=== PATIENT | male | born 1940 | race Caucasian/White ===

== ENCOUNTER 2022-03-08 09:59 | Outpatient (CLI) | payer MEDICARE, BC, SELFPAY ==
[2022-03-08 13:30] LABS: Vitamin B12* 245 pg/mL (243-894)
== END 2022-03-08 10:00 | disposition home or self-care (01) ==
PROVIDERS: PCP Family Medicine; Visit Provider Emergency Medicine
DX: D53.9 Nutritional anemia, unspecified (principal)
CPT/HCPCS: 82607

== ENCOUNTER 2022-04-03 14:05 | Outpatient (CLI) | payer MEDICARE, BC, SELFPAY ==
[2022-04-03 16:50] LABS: Albumin* 3.9 g/dL (3.3-5.0); Chloride* 107 mmol/L (96-114); Potassium* 4.1 mmol/L (3.6-5.1); Sodium* 138 mmol/L (135-149)
[2022-04-03 16:53] LABS: Alanine Aminotransferase* 32 U/L (4-50); Alkaline Phosphatase* 196 U/L (40-150); Aspartate Amino Transferase* 28 U/L (12-35); Blood Urea Nitrogen* 18 mg/dL (7-30); Carbon Dioxide* 25 mmol/L (20-32); Creatinine* 0.7 mg/dL (0.5-1.5); Estimated Glomerular Filt Rate 92 ml/min; Glucose* 98 mg/dL (60-115); Total Protein* 6.8 g/dL (6.0-8.3)
[2022-04-03 16:54] LABS: Calcium* 8.8 mg/dL (8.4-10.6)
[2022-04-03 17:23] LABS: PSA Screen* 1.36 ng/mL (0.10-4.00)
== END 2022-04-03 14:06 | disposition home or self-care (01) ==
LOC: LKVREF 14:05
PROVIDERS: PCP Family Medicine; Visit Provider Family Medicine
DX: N40.0 Benign prostatic hyperplasia without lower urinary tract symptoms (principal); E03.9 Hypothyroidism, unspecified; I25.10 Atherosclerotic heart disease of native coronary artery without angina pectoris; R74.8 Abnormal levels of other serum enzymes; M25.522 Pain in left elbow
CPT/HCPCS: 80053; 84153; 84443

== ENCOUNTER 2022-04-27 11:00 | Outpatient (CLI) | payer MEDICARE, BC, SELFPAY | END 2022-04-27 11:01 | disposition home or self-care (01) | PROVIDERS: PCP Family Medicine; Visit Provider Family Medicine | DX: Z00.00 Encounter for general adult medical examination without abnormal findings (principal); D64.9 Anemia, unspecified; I10 Essential (primary) hypertension; E03.9 Hypothyroidism, unspecified | CPT/HCPCS: 82728; 82747; 83540 ==

== ENCOUNTER 2022-05-01 14:00 | Outpatient (RCR) | payer MEDICARE, BC, SELFPAY ==
--- NOTE | 2022-04-11 13:46 | OT.OPOE ---
OT Outpatient Ortho Eval OT Outpatient Ortho Eval Start: 04/11/22 11:21 Freq: Status: Active Protocol: Document 04/11/22 11:21 LCN (Rec: 04/11/22 11:46 LCN [id number]) E-signed By Shital Price, OTR/L, CLT OT OP Ortho Eval Details Type Type Eval Complexity Low Insurance Information Insurance Information Medicare B Outpatient History/Precautions Current Condition/Medical Diagnosis Referring Provider Carmita Chaney PA-C Treatment Diagnosis L elbow pain Date of Onset 03/08/22 Medical Conditions Heart Condition,Metal Implants Other Conditions 3 vessel bypass with stent placement, B total knee replacements, BPH. Has been seen in ER for vertigo with near syncope, responded to meclizine after a few hours, no eval for BPPV, but continues to have dizziness with rising from side lying or sit to stand, taking 3-5 sec pause before moving. Has had 3 annual rounds of cortisone injections into L [facility] and can no longer get more . Medical/Functional History Medical History Reviewed Yes Prior Level of Function/Mobility Pt used to winter in [facility] x 2 months for the past 10 years , stopped in 2019 and pt has been moving slower since, now single point cane user. This is his first fall with injury in the past 8 years. 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 TUG was 12 sec on . Ortho Subjective Subjective Subjective Juancarlos Dexter is a left hand dominant 82 y/o retired male who is starting to slow down with his activity and has some ongoing dizziness symptoms. WHen he stood rapidly on 03/08/22, he fell forward into heavy side table with R hand pinned under and sustained full sheering of left forearm with bruising and edema through entire L UE that responded well to round of prednisone. L thumb is stiff, mildly tender during pinching Pain Assessment Pain Present Pain Present Pain Reported Location L elbow Description Pressure,Dull, Achy,Throbbing, With Movement Intensity 2 Goniometric Comments Goniometric Comments Goniometric Comments AROM-- lacking 12 degree term EL FL and -5 degrees ILEANA with springy end feel. Denies shoulder pain. MMT withheld per pain. Pos 1 Magnetic Healer is 65# R and 46# L ( tender at L CMC 2 /10). Pos 2 is 60# R and 55#. Melgoza pinch is 20#R and 19# L. 3 pt pinch is 20# R and 17# L. Squaring of B CMC's noted. Fibrous changes, spongy texture at medial epicondyle and tender points in flexor muscle bulk. Bruising edema of dorsal hand are resolved. Upper Extremity Special Tests Elbow Cozens Test Negative Left,Negative Right Ulnar Nerve Froment's Sign Negative Left,Negative Right OT Problems Problems Problems Decreased Strength,Decreased Range of Motion Problems Comments Pain Other Problems Opening Containers,Dressing Patient Potential Excellent Assessment Assessment Assessment Given Inocencio's post fall L elbow pain difficulty with edema, pain, ROM and strength loss of L thumb/elbow, he would benefit from skilled OT to address these areas. Occupational Therapy Treatment Plan - OP Goals Goals In 6 weeks, pt will demonstrate:? 1) Decreased pn to <2/10 80% of the time with flipping collar, managing paintbrushes, and carrying objects between rooms. 2) I HEP for stretching, gradual strengthening and self mgmt strategies. 3) improved L atm mechanic strength to 15# and pinch to 10# with L thumb pain < 1/10. Target Date 05/23/22 Progress set Treatment Plan Treatment Plan Evaluation,Edema Control,Joint Mobilization,Manual Therapy, Ultrasound,Therapeutic Exercise,Self-Care/Home Management,Caregiver Training Expected Frequency 1-2x Week Expected Duration Comments 4-6 visits Certification Certification I Certify That: Therapy Services Provided, Therapy Plan Established, Therapy Plan Reviewed Recertification Information Recertification Information Initial Certification Date 04/11/22 Recertification Due Date 05/23/22 Provider Signature Shows Agreement With POC & Medical Necessity Physician Comment/Change Comment or Changes Physician NPI Number #
== END 2022-08-24 08:12 | disposition home or self-care (01) ==
PROVIDERS: PCP Family Medicine; Visit Provider Physician Assistant Surgical
DX: M25.522 Pain in left elbow (principal); R26.81 Unsteadiness on feet; H81.12 Benign paroxysmal vertigo, left ear; M54.2 Cervicalgia; Z91.81 History of falling; I51.9 Heart disease, unspecified; Z95.1 Presence of aortocoronary bypass graft; R55 Syncope and collapse; M25.642 Stiffness of left hand, not elsewhere classified; R53.1 Weakness; W19.XXXA Unspecified fall, initial encounter; Z96.653 Presence of artificial knee joint, bilateral; N40.0 Benign prostatic hyperplasia without lower urinary tract symptoms; Z51.89 Encounter for other specified aftercare
CPT/HCPCS: 97035; 97110; 97140; 97165; X5282

== ENCOUNTER 2022-05-08 10:44 | Outpatient (CLI) | payer MEDICARE, BC, SELFPAY ==
--- NOTE | 2022-05-08 10:45 | CRLHL7_ITS ---
For Patients: As a result of the Century Cures Act, medical imaging exams and procedure reports are released immediately into your electronic medical record. You may view this report before your referring provider. If you have questions, please contact your health care provider. Indication: Memory loss, gait instability Technique: Multiplanar, multisequence MRI of the brain obtained without contrast. Comparison: No relevant comparison studies available at this institution. Findings: Diffusely prominent supratentorial ventricles and sylvian fissures, slightly out of proportion with respect to the cerebral sulci. No midline shift. No acute intracranial hemorrhage or abnormal extra-axial fluid collection. No suspicious restricted diffusion. Focal and confluent areas FLAIR hyperintensity are present throughout the supratentorial white matter, with a combination of scattered prominent perivascular spaces and old lacunar infarcts throughout the deep white matter and basal ganglia. Chronic micro hemorrhages present posterior to the left dentate nucleus, and equivocally 2 additional foci lateral to the right dentate nucleus and left frontal horn. Midline structures are otherwise unremarkable. Major expected intracranial flow voids are visualized. No focal marrow lesion identified. Normal signal throughout the paranasal sinuses and mastoid air cells. Bilateral lens implants. Otherwise unremarkable visualized orbits. Impression: 1. Prominence of the supratentorial ventricles and sylvian fissures, somewhat out of proportion with respect to the cerebral sulci. This is nonspecific, and statistically most likely represents central predominant cerebral volume loss. However, normal pressure hydrocephalus could have a similar appearance in the appropriate clinical setting. 2. Moderate chronic microangiopathy white matter changes with scattered chronic lacunar infarcts as well as a few chronic microhemorrhages. 3. No evidence of acute intracranial abnormality. Dictated by Erika Tavares MD @ 05/08/2022 11:58:36 AM (Electronically Signed)
== END 2022-05-08 10:45 | disposition home or self-care (01) ==
PROVIDERS: PCP Family Medicine; Visit Provider Family Medicine
DX: R41.3 Other amnesia (principal); I63.81 Other cerebral infarction due to occlusion or stenosis of small artery; R26.81 Unsteadiness on feet
CPT/HCPCS: 70551

== ENCOUNTER 2022-06-27 09:15 | Outpatient (RCR) | payer MEDICARE, BC, SELFPAY ==
--- NOTE | 2022-05-17 13:11 | PT.OPE ---
[facility] Eval [facility] Outpatient Eval Start: 05/15/22 13:08 Freq: Status: Active Protocol: Document 05/15/22 13:10 BMS (Rec: 05/15/22 13:13 BMS [id number]) E-signed By Julisa Lawson PT Physical Therapy Outpatient Evaluation Insurance Information Recert Due Date 08/11/22 Insurance Information/Comments [employer] Provider Fax Number internal Medical Diagnosis Unsteady on feet R 26.81 Gait instability Treating Diagnosis multifactoral gait instability R26.89 BPPV H81.12 neck pain M54.2 z91.81 hx of fall Referring MD Carlos Godinez MD Subjective Subjective Slow down walking dragan in afternoon, thinks Every since had both knee s replaced Tried to ride bicycle cant bend knees. Only fell 1x getting out of chair, fell on r hand hit table. Fell face first when gets up too fast has had dizziness in past. ~ 6 months ago got out of bed, was spinning took me to [facility], took me to hospital laid there a few hours then was better, doctor gave me prescription. Not refillable. Take once in while if need it. Dr. Cordero. [place] ? getting hearing aids repaired. Had 3x bypass + stents Afib ? when fell and when had check up, eloquis No hx stroke Covid back in September Cant stop right away when out walking Cannot get out of chair Pain Comments low back chronic, neck chronic , elbow s/p fall. B TKA neither healed right Current Work Status Retired Preferred Name Inocencio Precautions Treatment Precautions/Contraindications Past medical hx + for: Hypertension (Acute) I10 Gait instability (Acute) R26. 81 Anemia (Acute) D64.9 Elbow pain, left (Acute) M25. 522 Skin tear (Acute) Macrocytic anemia (Acute) D53. 9 Near syncope (Acute) R55 Hand pain (Acute) M79.643 Actinic keratosis (Acute) L57. 0 Memory impairment (Acute) R41. 3 Hypothyroidism (Acute) E03.9 High alkaline phosphatase ( Acute) R74.8 Gout (Acute) M10.9 Eczema (Acute) L30.9 Coronary artery disease (Acute ) I25.10 [place] CABG stents Atrial fibrillation (Acute) I48.91 Atopic dermatitis (Acute) L20. 9 BPH (benign prostatic hyperplasia) (Acute) N40.0 Viral URI with cough (Acute) J06.9 Therapy Limitations/Systems Review Cognition,Vision,Hearing,Other Medical Problem Objective Range of Motion cervical ext severe loss with inc neck pain and feeling of unsteadiness B rotation 40 degrees with pain B shoulder flex 130-140 B knee ext modified long sit lack 30 ext on R and lack 20 deg on L. trunk flex ~ 50% with use of UE and flex hips/ knees for balance trunk ext severe loss, lacks from neutral. B SB 25% expected. DF to neutral Strength seated hip flex, quad, HS, DF all 4-/5 B to 1x max resist. eversion 3+/5. PF 4-/5, not tested in standing. able to stand no UE from mod surface 5x. UE not assessed this date, is seeing OT for elbow Palpation increased myofascial restrictions through neck and lower back, HS and gastroc. further assess to follow Balance & Gait rapid transitions sit to stand and stand to next seated surface. walking down shannon slower pace, decreased stride, L stride shorter than R with iniital contact foot flat and shuffle on L. reaches for kirk[place] and furniture with slow melting posture, hip and knee flexion. lack of pushoff. diminished endurance with need to sit. Posture head forward, hip/knee flex in standing, standing wide base of support low guard with movement. larger mass, protruding abdomen, sacral sit . Other/Pertinent Objective + L [place] Hall[place] and horizontal canal roll test. VOR gaze stab impairment mild. seeing OT for elbow concurrently. Functional Test Performed & Score ABC 64.4 lowest scores standing on chair reaching and bending over to tow picker. 5x sit/ stand = 20 sec no UE but braces LE against chair TUG 20 sec, + cognitive = 25 sec. Assessment Assessment/Impression Multifactorial gait abnormality and instability, hx falls, bppv, other vestibular hypo/dysfunction Primary Functional Limitations standing from chair, pain in LB limiting mobility and gait, fall, vertigo, abnormal gait, poverty and slowness of motion including gait, L LE shuffle, horizontal eye movements at rest. decreased ROM, decreased functional strength, impaired bed mobility and balance. inability to bend forward without imbalance. lack B knee ext. Plan of Care Rehabilitation Potential Good Rehabilitation Potential Comments Patient is 82 y.o. male accompanied by Alva who presents to rehab services w order for gait instability. Subjective provided by patient and , appears some memory and cognition impairments exist. He notes increasing imbalance and walking issues past few worse, worse more so past 6-12 months. Vertigo onset ~ 6 months ago, had severe episode where had to call 911 went to ED. Then in Feb fell when bending forward to pick something up from floor got dizzy, injured L elbow, R hand. Spinning quick with turning onto left to get out of bed, with bending forward, fast turns and sometimes looking up. Walking has gotten worse through pandemic was unable to be as active as before when went to [place] x 2 mos every winter. Past medical hx + for atrial fibrillation, cardiac stent placement, injurious fall due to dizziness and imbalance resulting in injury to hand and elbow (concurrently seeing colleagues in OT), B TKA which he feels never fully restored ROM and strength, is hard of hearing and hearing aids to be out for repair, wears glasses. He presents with multifactorial gait instability, positional vertigo (+ L posterior and horizontal ageotropic canalithiasis) w hx of injurious fall while bending forward. He may have diminished insight to deficits , chronic back and neck pain, cardiac hx and see chart/ precautions for comorbidities all of which may impact response to therapy requiring longer course of treatment. He is quite uncomfortable in achieving and maintaining positions for canalith repositioning due to neck and lumbar mobility restrictions and pain. Gait impaired by loss of knee and hip extension , loss of proprioception, altered stride and vestibular dysfunction. He is appropriate for skilled physical therapy to improve mobility and safety , pain, gait balance, ROM and modified self management of deficits. Per patient has been referred to neurology though reason for referral may be multifaceted suspect possible parkinsonism or other movement disorder due to slowness, gait and balance and processing deficits in following multistep commands. MRI report 05/08/22 in EMR: Impression: 1. Prominence of the supratentorial ventricles and sylvian fissures, somewhat out of proportion with respect to the cerebral sulci. This is nonspecific, and statistically most likely represents central predominant cerebral volume loss. However, normal pressure hydrocephalus could have a similar appearance in the appropriate clinical setting. 2. Moderate chronic microangiopathy white matter changes with scattered chronic lacunar infarcts as well as a few chronic microhemorrhages. 3. No evidence of acute intracranial abnormality. Physical Therapy Goals 1) Pt demo I or modified I with assist for home program including balance, strength, ROM and self management techniques. 2) Pt demo improved knee extension ROM, trunk ext, and hip and knee flex to allow for improved safety and speed of ADLs and IADLs such as grooming and dressing. 3) Pt demo Tinetti or DGI out of high fall risk category 4) Pt report 50-75% improvement in positional vertigo symptoms and frequency . 5) Pt demo I bed mobility to allow self repositioning without vertigo. 6) Pt demo ability to ambulate 500' with safest and least restrictive or no gait aid with no shuffling, wall/ furniture surfing or imbalance noted for community ambulation and health maintenance. Coordination/Communication With Referral Source Treatment Plan/Direct Interventions Canalith Repositioning, Electrical Stimulation,Gait Training,Manual Therapy, Neuromuscular Re-ed,Self-Care/ Home Management,Therapeutic Activities,Therapeutic Exercises Frequency/Duration 1-2x/ week up to 12 weeks Patient Will Be Discharged From Therapy Completion of LTG(s),Skills Plateau,Independent w/HEP, Independently Progressing Evaluation Billing Untimed Code Treatment Minutes 45 Complexity Moderate Certification Information Initial Certification Date 05/15/22 Ending Certification Date 08/12/22 Provider Signature Shows Agreement With POC & Medical Necessity Physician Signature & Date Requested Please Sign/Date Here Physician Comment/Change : Physician NPI Number #[id number]
== END 2022-10-05 10:42 | disposition home or self-care (01) ==
PROVIDERS: PCP Family Medicine; Visit Provider Family Medicine
DX: R26.81 Unsteadiness on feet (principal); Z51.89 Encounter for other specified aftercare
CPT/HCPCS: 97110; 97112; 97162

== ENCOUNTER 2023-05-22 08:02 | Outpatient (CLI) | payer MEDICARE, BC, SELFPAY | END 2023-05-22 08:03 | disposition home or self-care (01) | LOC: NFLDREF 05-25 10:09 | PROVIDERS: PCP Family Medicine; Referring Provider Family Medicine; Visit Provider Family Medicine | DX: I25.10 Atherosclerotic heart disease of native coronary artery without angina pectoris (principal); N40.0 Benign prostatic hyperplasia without lower urinary tract symptoms; E03.9 Hypothyroidism, unspecified; D53.9 Nutritional anemia, unspecified; I48.91 Unspecified atrial fibrillation; R74.8 Abnormal levels of other serum enzymes | CPT/HCPCS: 80053; 80061; 84443; 84550; G0103 ==

== ENCOUNTER 2023-09-04 07:59 | Outpatient (CLI) | payer MEDICARE, BC, SELFPAY ==
--- OUTSIDE RECORDS SUMMARY | 2023-09-04 08:05 | XMS_ITS | Referral Summary ---
Author Organization [facility] Address [address] [place] [address] Care Team Providers Care Customer Service Trainer Name Role Phone Carlos Godinez MD Primary Care Provider [phone] Emma Burnham APRN SCHOOL BUS MONITOR Unavailable [phone] Ioana Higgins PA-C Unavailable Encounters Date Type Department Care Team Description 08/27/[address] [id number] Atul Hagan MD Refill Request (atorvastatin) 08/27/[address] [address] Atul Hagan MD Medication Request (atorvastatin (LIPITOR) 40 MG tablet) 06/13/2023 Travel 06/13/2023 12:45 PM CDT Office Visit [address] [address] Atul Hagan MD Essential hypertension with goal blood pressure less than 140/90 (Primary Dx); Paroxysmal atrial fibrillation (H); Hyperlipidemia LDL goal <100; 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; S/P CABG (coronary artery bypass graft); HERMELINDA (obstructive sleep apnea); Bradycardia from Last 3 Months Allergies Active Allergy Reactions Criticality Noted Date Comments Sal Inhibitors Cough Medium 06/21/2015 Medications Medication Sig Dispensed Refills Start Date End Date Status nitroGLYcerin (NITROSTAT) 0.4 MG sublingual tabletIndications:C oronary artery disease involving tejon coronary artery of tejon heart without angina pectoris Place 1 tablet (0.4 mg) under the tongue every 5 minutes as needed for chest pain if still having pain after 3 doses (15 min) call 911 25 tablet 3 10/30/2019 Active hydrOXYzine (ATARAX) 25 MG tabletIndications:N ausea,Anxiety Take 1 tablet (25 mg) by mouth 3 times daily as needed for anxiety or other (stomach upset) 30 tablet 11 10/30/2019 Active allopurinol (ZYLOPRIM) 300 MG tabletIndications:G out of knee, unspecified cause, unspecified chronicity, unspecified laterality TAKE 1 TABLET DAILY 90 tablet 11/25/2020 Active levothyroxine (SYNTHROID/LEVOTHRO ID) 175 MCG tabletIndications:H ypothyroidism due to acquired atrophy of thyroid TAKE 1 TABLET DAILY 90 tablet 11/25/2020 Active azaTHIOprine (IMURAN) 50 MG tablet Take 50 mg by mouth daily Active alfuzosin ER (UROXATRAL) 10 MG 24 hr tablet Take 10 mg by mouth daily Active betamethasone dipropionate (DIPROSONE) 0.05 % external cream Apply topically 2 times daily Active apixaban ANTICOAGULANT (ELIQUIS ANTICOAGULANT) 5 MG tabletIndications:P aroxysmal atrial fibrillation (H) Take 1 tablet (5 mg) by mouth 2 times daily 180 tablet 3 12/20/2022 Active furosemide (LASIX) 20 MG tabletIndications:P aroxysmal atrial fibrillation (H),Essential hypertension with goal blood pressure less than 140/90,Bilateral lower extremity edema Take 1 tablet (20 mg) by mouth daily as needed (lower leg swelling) 90 tablet 3 12/20/2022 Active atorvastatin (LIPITOR) 40 MG tabletIndications:H yperlipidemia LDL goal <100 Take 1 tablet (40 mg) by mouth daily 90 tablet 3 08/27/2023 Active atorvastatin (LIPITOR) 40 MG tabletIndications:H yperlipidemia LDL goal <100 Take 1 tablet (40 mg) by mouth daily 90 tablet 3 12/20/2022 4 Discontinue d(Reorder (No AVS)) Active Problems Problem Noted Date Diagnosed Date Obesity: BMI>35 with comorbidities 10/09/2018 Memory loss 02/26/2018 Chest pain 09/22/2017 Benign neoplasm of skin of trunk, except scrotum 10/16/2016 Long-term (current) use of anticoagulants [Z79.0 1] 10/26/2015 Paroxysmal atrial fibrillation 09/29/2014 S/P CABG (coronary artery bypass graft) 09/30/19 15 Overview: 1995: [facility]:bypass surgery That was done following a myocardial infarction. Coronary artery disease invo lving tejon coronary artery of tejon heart without angina pectoris 09/29/2014 Overview: 2004 underwent angioplasty and stenting in the right coronary artery and ramus arteries. His symptoms with coronary disease have primarily been shortness of breath Essential hypertension with goal blood pressure less than 140/90 09/29/2014 Hyperlipidemia LDL goal <100 09/29/2014 HERMELINDA (obstructive sleep apnea) 09/29/2014 Hypothyroidism due to acquired atrophy of thyroi d 09/29/2014 Osteoarthritis 09/29/2014 Gout 09/29/2014 S/P total knee arthroplasty 09/29/2014 PVC's (premature ventricular contractions) 09/29 Premature atrial contractions 09/29/2014 Resolved Problems Problem Noted Date Diagnosed Date Resolved Date Right-sided low back pain wi th right-sided sciatica, unspecified chronicity 10/01/2017 018 Advanced directives, counseling/discussion 10/27/2015 08/13/2023 Overview: States he has one at home and will bring a copy in to the clinic. His previous doctor at [facility] has his original one (Dr. Caballero). 10/27/15 Lumbago 11/28/2013 12/17/2013 [email or web address] FOLLOWING JOINT REPLACEMENT 07/05/2005 09/15/2005 iamKNEE JOINT REPLACEMENT STATUS 07/05/2005 09/15/2005 Immunizations Name Administration Dates Next Due COVID-19 MONOVALENT 12+ (Pfizer) 05/01/2020,02/1 04/2020 [id number] Novel Flu 01/08/2009 Influenza (High Dose) 3 valent vaccine 8,03/09/2017,02/09/2016 Influenza Vaccine 65+ (Fluzone HD) 10/30/2019 Pneumo Conj 13-V (2010&after) 10/09/2018 Pneumococcal 23 valent 10/30/2019,10/21/1997 TD,PF 7+ (Tenivac) 10/21/1997 TDAP Vaccine (Adacel) 07/29/2016 Social History Tobacco Use Types Packs/Day Years Used Date Smoking Tobacco: Former Cigarettes 0 [birth year]/26/1949 - 03/29/2005 Smokeless Tobacco: Never Tobacco Cessation:Counseling Given: Not Answered Alcohol Use Standard Drinks/Week Comments Yes 0 (1 standard drink = 0.6 oz pur e alcohol) rarely Humiliation, Afraid, Rape, and Kick questionnair e Answer Date Recorded Within the last year, have y ou been afraid of your partner or ex-partner? No 10/09/2018 Within the last year, have y ou been humiliated or emotionally abused in other ways by your partner or ex-partner? No Within the last year, have y ou been kicked, hit, slapped, or otherwise physically hurt by your partner or ex-partner? No 10/09/2018 Within the last year, have y ou been raped or forced to have any kind of sexual activity by your partner or ex-partner? No 10/09/2018 Social Connection and Isolat ion Panel [NHANES] Answer Date Recorded Frequency of Communication w ith Friends and Family More than three times a week 10/09/2018 Frequency of Social Gatherin gs with Friends and Family Three times a week 10/09/2018 Attends Worship Services More than 4 times per year 10/09/2018 Active Member of Clubs or Organizations Yes 10/09/2018 Attends Club or Organization Meetings More than 4 times per year 10/09/2018 Marital Status 10/09/2018 AUDIT-C Answer Date Recorded Q1: How often do you have a drink containing alc ohol? Monthly or less 10/30/2019 Q2: How many drinks containi ng alcohol do you have on a typical day when you are drinking? 1 or 2 10/30/2019 Q3: How often do you have si x or more drinks on one occasion? Never 10/30/2019 Overall Financial Resource Strain (CARDIA) Answe r Date Recorded How hard is it for you to pa y for the very basics like food, housing, medical care, and heating? Not hard at all 10/09/2018 PHQ-2 Answer Date Recorded PHQ-2 Score 0 06/13/2023 [facility] of Occupat ional Health - Occupational Stress Questionnaire Answer Date Recorded Do you feel stress - tense, restless, nervous, or anxious, or unable to sleep at night because your mind is troubled all the time - these days? Only a little 10/30/2019 Exercise Vital Sign Answer Date Recorde d On average, how many days pe r week do you engage in moderate to strenuous exercise (like a brisk walk)? 3 days 10/30/2019 On average, how many minutes do you engage in exercise at this level? 30 min 10/30/2019 Hunger Vital Sign Answer Date Recorded Within the past 12 months, y ou worried that your food would run out before you got the money to buy more. Never true 10/10/19 19 Within the past 12 months, t he food you bought just didn't last and you didn't have money to get more. Never true 10/09/2018 PRAPARE - Transportation Answer Date Re corded In the past 12 months, has l ack of transportation kept you from medical appointments or from getting medications? No 09/26 In the past 12 months, has l ack of transportation kept you from meetings, work, or from getting things needed for daily living? No 10/09/2018 Adolescent Education Answer Date Record ed Getting School Help Needed Not on file 11/20 Education Answer Date Recorded What is the highest level of school you have completed or the highest degree you have received? Some college, no degree 10/09/2018 Sex and Gender Information Value Date Recorded Sex Assigned at Not on file Gender Identity Not on file Sexual Orientation Choose not to disclose 2020 8:52 AM CDT Last Filed Vital Signs Vital Sign Reading Time Taken Comments Blood Pressure 118/62 06/13/2023 12:47 PM CDT Pulse 50 06/13/2023 12:47 PM CDT Temperature 36.6 ??C (97.8 ??F) 09/30/2020 8:30 AM CD T Respiratory Rate 20 08/24/2020 9:40 AM CDT Oxygen Saturation 98% 06/13/2023 12:47 PM CDT Inhaled Oxygen Concentration - - Weight 99.3 kg (219 lb) 06/13/2023 12:47 PM CDT Height 177.2 cm (5' 9.75) 06/13/2023 12:47 PM C DT Body Mass Index 31.65 06/13/2023 12:47 PM CDT Plan of Treatment Not on file Procedures Procedure Name Priority Date/Time Associated Diagnosis Comments CBC WITH PLATELETS Routine 05/22/2023 8: 02 AM CDT Paroxysmal atrial fibrillation (H) TSH Routine 05/22/2023 8:02 AM CDT LIPID PROFILE Routine 05/22/2023 8:02 AM CDT BASIC METABOLIC PANEL Routine 05/22/2023 8:02 AM CDT Paroxysmal atrial fibrillation (H) HEPATIC FUNCTION PANEL Routine 05/22/2023 8:02 AM CDT from Last 3 Months or Most Recently Relevant to Health Maintenance Results * (ABNORMAL) TSH (05/22/2023 8:02 AM CDT) TSH (External) 0.202(L) 0.270 - 4.20 uIU/mL NON-INTERFACE D (ONBASE SCANS) Blood BLOOD SPECIMEN / Unknown 05/22/2023 8:02 AM CDT Cally GUAJARDO PFT - 06/01/2023 3:48 PM CDT Verified by Oksana Robert on 06/01/2023. Provider Outside LAB - BLOOD ORDERABL ES CASANDRA PFT NON-INTERFACED (ONBASE SCANS) * Lipid Profile (05/22/2023 8:02 AM CDT) Triglycerides (External) 75 40 - 149 mg/dL NON-INTERFACE D (ONBASE SCANS) Cholesterol (External) 90 90 - 199 mg/dL NON-INTERFACE D (ONBASE SCANS) LDL Cholesterol Calculated (External) 32 <100 mg/dL NON-INTERFACE D (ONBASE SCANS) HDL Cholesterol (External) 43 >=40 mg/dL NON-INTERFACE D (ONBASE SCANS) Blood BLOOD SPECIMEN / Unknown 05/22/2023 8:02 AM CDT Narrative BREEZE PFT - 06/01/2023 3:48 PM CDT Verified by Oksana Robert on 06/01/2023. Provider Outside LAB - BLOOD ORDERABL ES Performing Organization Address [facility] de Phone Number CASANDRA PFT NON-INTERFACED (ONBASE SCANS) * (ABNORMAL) Hepatic function panel (05/22/2023 8:02 AM CDT) Protein Total (External) 7.5 6.0 - 8.3 g/dL NON-INTERFACE D (ONBASE SCANS) Albumin (External) 4.2 3.3 - 5.0 g/dL NON-INTERFACE D (ONBASE SCANS) Bilirubin Total (External) 1.1 0.1 - 1.5 mg/dL NON-INTERFACE D (ONBASE SCANS) AST (External) 28 12 - 35 U/L NON-INTERFACE D (ONBASE SCANS) ALT (External) 29 4 - 50 U/L NON- INTERFACE D (ONBASE SCANS) Alk Phosphatase (External) 234(H) 40 - 150 U/L NON-INTERFACE D (ONBASE SCANS) Blood BLOOD SPECIMEN / Unknown 05/22/2023 8:02 AM CDT Narrative CHARLIEEZE PFT - 06/01/2023 3:48 PM CDT Verified by Oksana Robert on 06/01/2023. Provider Outside LAB - BLOOD ORDERABL Performing Organization Address [facility] Co de Phone Number JUANAE PFT NON-INTERFACED (ONBASE SCANS) * Basic metabolic panel (05/22/2023 8:02 AM CDT) Sodium (External) 141 135 - 149 mmol/L NON-INTERFACED (ONBASE SCANS) Potassium (External) 3.8 3.6 - 5.1 mmol/L NON-INTERFACED (ONBASE SCANS) Chloride (External) 105 96 - 114 mmol/L NON-INTERFACED (ONBASE SCANS) CO2 (External) 28 20 - 32 mmol/L NON-INTERFACED (ONBASE SCANS) Anion Gap (External) 8 7 - 15 mEq/L NON-INTERFACED (ONBASE SCANS) Urea Nitrogen (External) 20 7 - 30 mg/dL NON-INTERFACED (ONBASE SCANS) Creatinine (External) 0.8 0.5 - 1.5 mg/dL NON-INTERFACED (ONBASE SCANS) GFR Estimated (External) 87 ml/min/1.7 3m2 NON-INTERFACED (ONBASE SCANS) Calcium (External) 9.4 8.4 - 10.6 mg/dl NON-INTERFACED (ONBASE SCANS) Glucose (External) 97 60 - 115 mg/dL NON-INTERFACED (ONBASE SCANS) Blood BLOOD SPECIMEN / Unknown 05/22/2023 8:02 AM CDT Narrative CHARLIERAFFYRigoberto PFT - 06/01/2023 3:48 PM CDT Verified by Oksana Robert on 06/01/2023. Atul Hagan MD LAB - BLOOD ORDERABL ES CASANDRA PFLynn NON-INTERFACED (ONBASE SCANS) * (ABNORMAL) CBC with platelets (05/22/2023 8:02 AM CDT) WBC Count (External) 8.29 4.50 - 11.00 K/uL NON-INTERFACE D (ONBASE SCANS) RBC Count (External) 4.07(L) 4.30 - 5.90 m/uL NON-INTERFACE D (ONBASE SCANS) Hemoglobin (External) 13.7 13.5 - 17.5 g/dL NON-INTERFACE D (ONBASE SCANS) Hematocrit (External) 41.5 37.0 - 53.0 % NON-INTERFACE D (ONBASE SCANS) MCV (External) 102(H) 80 - 100 fL NON-INTERFACE D (ONBASE SCANS) MCH (External) 34 26 - 34 pg NON- INTERFACE D (ONBASE SCANS) MCHC (External) 33 32 - 36 gm/dL NON-INTERFACE D (ONBASE SCANS) Platelet Count (External) 161 140 - 440 K/uL NON-INTERFACE D (ONBASE SCANS) Blood BLOOD SPECIMEN / Unknown 05/22/2023 8:02 AM CDT Narrative CASANDRA PFT - 06/01/2023 3:48 PM CDT Verified by Oksana Robert on 06/01/2023. Atul Hagan MD LAB - BLOOD ORDERABL ES CASANDRA PFT NON-INTERFACED (ONBASE SCANS) from Last 3 Months or Most Recently Relevant to Health Maintenance Advance Directives For more information, please contact: [phone] * Full Code (Latest Code Status on File) Date Activated Date Inactivated Comments 09/22/2017 6:56 AM 09/23/2017 2:25 PM * Full Code Date Activated Date Inactivated Comments 11/19/2013 11:45 AM 11/20/2013 4:29 PM Care Teams Customer Service Trainer Relationship Specialty Start Date End Date Carlos Godinez MD [address] [id number] PCP - General Family Medicine 12/07/21 Emma Burnham APRN SCHOOL BUS MONITOR [address] [place] [address] Assigned PCP 11/04/22 Ioana Higgins PA-C [address] [address] Assigned Heart and Vascular Provider 03/22/23
--- OUTSIDE RECORDS SUMMARY | 2023-09-04 08:05 | XMS_ITS | Encounter Summary ---
Author Organization [facility] Address [address] [place] [address]. [place] [address] Care Team Providers Care Child Development Specialist Name Role Phone Carlos Godinez MD Primary Care Provider Emma Burnham APRN MANUFACTURING FINANCE MANAGER Unavailable [phone] Ioana Higgins PA-C Unavailable Reason for Visit * Reason Onset Date Comments Refill Request 08/27/2023 atorvastatin Encounter Details Date Type Department Care Team (Late st Contact Info) Description 08/27/[address] [facility] [address] [place] [address] Atul Hagan MD [address] [place], [place] [id number] [place] [address] Refill Request (atorvastatin) Social History Tobacco Use Types Packs/Day Years Used Date Smoking Tobacco: Former Cigarettes 0 [birth year]/26/1950 - 03/29/2005 Smokeless Tobacco: Never Alcohol Use Standard Drinks/Week Comments Yes 0 [...] Family Three times a week 10/09/2018 Attends [employer] Services More than 4 times per year [...] Answer Date Recorded PHQ-2 Score 0 06/13/2023 [facility] of Occupat ional Health - Occupational Stress [...] not to disclose 2020 8:52 AM CDT documented as of this encounter Miscellaneous Notes * Telephone Encounter - Dereck Flores RN - 08/27/2023 2:43 PM CDT [facility] Cardiology Refill Guideline reviewed. Medication meets criteria for refill. documented in this encounter Plan of Treatment Not on file documented as of this encounter Visit Diagnoses Diagnosis Hyperlipidemia LDL goal <100 Other and unspecified hyperlipidemia documented in this encounter Care Teams Child Development Specialist Relationship Specialty Start Date End Date Carlos Godinez MD [facility] [address] [place] [address] PCP - General Family Medicine 12/07/21 Emma Burnham APRN CNP [address] [place], [place] [address] Assigned PCP 11/04/22 Ioana Higgins PA-C [address] [place] [address] Assigned Heart and Vascular Provider 03/22/23 documented as of this encounter
--- OUTSIDE RECORDS SUMMARY | 2023-09-04 08:05 | XMS_ITS | Encounter Summary ---
Author Organization [facility] Address [address] [place] [address] Care Team Providers Care Mangle Press Catcher Name Role Phone Carlos Godinez MD Primary Care Provider [phone] Emma Burnham APRN DISABILITY ATTORNEY Unavailable [phone] Ioana Higgins PA-C Unavailable [phone] Encounter Details Date Type Department Care Team (Latest Contact Info) Description 06/13/2023 Travel Social History Tobacco Use Types Packs/Day Years [...] Family Three times a week 10/09/2018 Attends [employer] Services More than 4 times per year [...] Answer Date Recorded PHQ-2 Score 0 06/13/2023 [facility] of Occupat ional Health - Occupational Stress [...] AM CDT documented as of this encounter Plan of Treatment Not on file documented as of this encounter Visit Diagnoses Not on filedocumented in this encounter Care Teams Mangle Press Catcher Relationship Specialty Start Date End Date Carlos Godinez MD [facility] [address] [place] [address] PCP - General Family Medicine 12/07/21 Emma Burnham APRN CNP [address] [place], [place] [id number] Assigned PCP 11/04/22 Ioana Higgins PA-C [address] [place] [address] Assigned Heart and Vascular Provider 03/22/23 documented as of this encounter
--- OUTSIDE RECORDS SUMMARY | 2023-09-04 08:05 | XMS_ITS | Encounter Summary ---
Author Organization [facility] Address [address] [place] [address]. [place] [address] Care Team Providers Care Crm Analyst Name Role Phone Carlos Godinez MD Primary Care Provider [phone] Emma Burnham APRN SCREEN MAKING SUPERVISOR Unavailable [phone] Ioana Higgins PA-C Unavailable [phone] Reason for Visit * Reason Onset Date Comments Medication Request 08/27/2023 atorvastatin (LIPITOR) 40 MG tablet Encounter Details Date Type Department Care Team (Late st Contact Info) Description 08/27/2023 Telephone [facility] Heart [address] [place] [address] [place] [address] [place], [place] [id number] [place] [address] Medication Request (atorvastatin (LIPITOR) 40 MG tablet) Social History Tobacco Use Types Packs/Day Years [...] Family Three times a week 10/09/2018 Attends [employer] Services More than 4 times per year [...] Answer Date Recorded PHQ-2 Score 0 06/13/2023 [facility] of Occupat ional Health - [...] encounter Miscellaneous Notes * Telephone Encounter - Shayla Valles - 08/27/2023 2:29 PM CDT [facility] Phone Message May a detailed message be left on voicemail: yes Reason for Call: Medication Refill Request Has the patient contacted the pharmacy for the refill? Yes Name of medication being requested: atorvastatin (LIPITOR) 40 MG tablet Provider who prescribed the medication: Dr. mendoza Pharmacy: [facility] mail order Date medication is needed: 08/28/23 This is a new pharmacy for the patient. Please send new rx for 3 month supply with refills. Action Taken: Other: cardiology Travel Screening: Not Applicable Thank you! [facility] Date of Service: documented in this encounter Plan of Treatment Not on file documented as of this encounter Visit Diagnoses Not on filedocumented in this encounter Care Teams Crm Analyst Relationship Specialty Start Date End Date Carlos Godinez MD [facility] [address] [place] [address] PCP - General Family Medicine 12/07/21 Emma Burnham APRN SCREEN MAKING SUPERVISOR [address] [place] [address] Assigned PCP 11/04/22 Ioana Higgins PA-C [address] [address] Assigned Heart and Vascular Provider 03/22/23 documented as of this encounter
--- OUTSIDE RECORDS SUMMARY | 2023-09-04 08:05 | XMS_ITS | Clinical Summary ---
Author Organization [facility] Address [address] [place] [address] Care Team Providers Care Non Clinical Advisor Name Role Phone Carlos Godinez MD Primary Care Provider [phone] Emma Burnham APRN CLINICAL REHABILITATION AIDE Unavailable [phone] Ioana Higgins PA-C Unavailable [phone] Allergies Active Allergy Reactions Criticality Noted Date Comments Sal Inhibitors Cough Medium 06/21/2015 Medications Medication Sig Dispensed Refills Start Date End Date Status nitroGLYcerin (NITROSTAT) 0.4 MG sublingual tabletIndications:C oronary artery disease involving [place] coronary artery of [place] heart without angina pectoris Place 1 tablet [...] artery bypass graft) 09/30/19 15 Overview: 1995: [facility]:bypass surgery That was done following a myocardial infarction. Coronary artery disease invo lving [place] coronary artery of [place] heart without angina pectoris 09/29/2014 Overview: 2005 underwent angioplasty and stenting in the right [...] to the clinic. His previous doctor at [facility] has his original one (Dr. Caballero). 10/27/15 Lumbago 11/28/2013 12/17/2013 iamAFTERCARE FOLLOWING JOINT REPLACEMENT 07/05/2005 09/15/2005 iamKNEE JOINT REPLACEMENT STATUS 07/05/2005 09/15/2005 Encounters Date Type Department Care Team Description 08/27/[address] [phone] Atul Hagan MD Refill Request (atorvastatin) 08/27/[address] [phone] Atul Hagan MD Medication Request (atorvastatin (LIPITOR) 40 MG tablet) 06/13/2023 12:45 PM CDT Office Visit [address] [phone] Atul Hagan MD Essential hypertension with goal blood pressure less than 140/90 (Primary Dx); Paroxysmal atrial fibrillation (H); Hyperlipidemia LDL goal <100; Coronary artery disease involving [place] coronary artery of [place] heart without angina pectoris; S/P CABG (coronary artery bypass graft); HERMELINDA (obstructive sleep apnea); Bradycardia 06/13/2023 Travel from Last 3 Months Immunizations Name Administration Dates Next Due COVID-19 MONOVALENT 12+ (Pfizer) 05/01/2020,02/1 04/2020 [id number] Novel Flu 01/08/2009 Influenza (High Dose) 3 valent vaccine 8,03/09/2017,02/09/2016 Influenza Vaccine 65+ (Fluzone HD) 10/30/2019 Pneumo Conj 13-V (2010&after) 10/09/2018 Pneumococcal 23 valent 10/30/2019,10/21/1997 TD,PF 7+ (Tenivac) 10/21/1997 TDAP Vaccine (Adacel) 07/29/2016 Family History Medical History Relation Comments Hypertension Father age 89 Dementia Mother Hypertension Mother age 86, pos sible cancer Diabetes No family hx of Relation Status Comments Father Maternal Grandfather Maternal Grandmother Mother Paternal Grandfather Paternal Grandmother Social History Tobacco Use Types Packs/Day Years [...] Family Three times a week 10/09/2018 Attends Roman Catholic Services More than 4 times per year [...] Answer Date Recorded PHQ-2 Score 0 06/13/2023 [facility] of Occupat ional Health - [...] 06/13/2023 12:47 PM CDT Plan of Treatment Health Maintenance Due Date Last Done Comments ANNUAL REVIEW OF HM ORDERS 1940 HF ACTION PLAN 1939 ZOSTER IMMUNIZATION (1 of 2) 1958 RSV VACCINE ( & 60+) (1 - 1-dose 60+ series) 1999 FALL RISK ASSESSMENT 01/05/2021 01/06/2020, 10/30/2019, 10/30/2019, Additional history exists MEDICARE ANNUAL WELLNESS VISIT 01/24/2023 01/24/2022, 02/07/2021, 10/30/2019, Additional history exists COVID-19 Vaccine (2022- season) 2023 02/15/2023, 02/02/2022, 08/02/2021, Additional history exists INFLUENZA VACCINE (#1) 2023 , 11/29/2021, 01/18/2021, Additional history exists BMP 11/22/2023 05/22/2023, 090 06/2022, 07/27/2022, Additional history exists ALT 05/21/2024 05/22/2023, 11/26, 12/05/2021, Additional history exists CBC 05/21/2024 05/22/2023, 03/2022, 01/04/2020, Additional history exists LIPID 05/21/2024 05/22/2023, 11/26, 11/02/2020, Additional history exists ADVANCE CARE PLANNING 11/03/2024 11/04/2019 , 10/27/2015, 10/27/2015 DTAP/TDAP/TD IMMUNIZATION (2 - Td or Tdap) 07/29/2026 07/29/2016, 10/21/1997 Pneumococcal Vaccine: 65+ Years Completed 10/30/2019, 10/09/2018, 10/21/1997 TSH W/FREE T4 REFLEX Completed 05/22/2023, 10/27/2019, 10/09/2018, Additional history exists PHQ-2 (once per calendar year) Completed 06/13/2023, 07/27/2022, 01/06/2020, Additional history exists HPV IMMUNIZATION Aged Out No longer e ligible based on patient's age to complete this topic IPV IMMUNIZATION Aged Out No longer e ligible based on patient's age to complete this topic MENINGITIS IMMUNIZATION Aged Out No l onger eligible based on patient's age to complete this topic RSV MONOCLONAL ANTIBODY Aged Out No l onger eligible based on patient's age to complete this topic Procedures Procedure Name Priority Date/Time Associated Diagnosis [...] - BLOOD ORDERABL ES Performing Organization Address [facility]/ZIP Co de Phone Number BREEZE PFT NON-INTERFACED (ONBASE SCANS) * Lipid Profile [...] LAB - BLOOD ORDERABL Performing Organization Address [facility] de Phone Number BREEZE PFT NON-INTERFACED (ONBASE SCANS) * (ABNORMAL) Hepatic [...] - BLOOD ORDERABL ES Performing Organization Address [facility]/ZIP Co de Phone Number CASANDRA PFT NON-INTERFACED (ONBASE SCANS) * Basic metabolic [...] ES CASANDRA PFT NON-INTERFACED (ONBASE SCANS) * (ABNORMAL) CBC with [...] ORDERABL ES CASANDRA PFLynn NON-INTERFACED (ONBASE SCANS) from Last 3 Months or Most Recently Relevant to Health Maintenance Advance Directives For more information, please contact: [phone] * Full Code (Latest Code Status on File) Date Activated Date Inactivated Comments 09/22/2017 6:56 AM 09/23/2017 2:25 PM * Full Code Date Activated Date Inactivated Comments 11/19/2013 11:45 AM 11/20/2013 4:29 PM Care Teams Non Clinical Advisor Relationship Specialty Start Date End Date Carlos Godinez MD [facility] [address] [place] [address] PCP - General Family Medicine 12/07/21 Emma Burnham APRN CLINICAL REHABILITATION AIDE [address] [place] [address] Assigned PCP 11/04/22 Ioana Higgins PA-C [address] [place] [address] Assigned Heart and Vascular Provider 03/22/23
--- OUTSIDE RECORDS SUMMARY | 2023-09-04 08:06 | XMS_ITS | Encounter Summary ---
Author Organization [facility] Address [address] [place] [address] Care Team Providers Care Rehab Director Name Role Phone Atul Hagan MD Unavailable [phone] Carlos Godinez MD Primary Care Provider Sarwat Grossman MD Unavailable Emma Burnham APRN GOLF SHOE SPIKE ASSEMBLER Unavailable [phone] Ioana Higgins PA-C Unavailable Encounter Details Date Type Department Care Team (Late st Contact Info) Description 04/27/2022 External Order Results [facility] [address] [place] [address] Outside, Provider Social History Tobacco Use Types Packs/Day Years [...] Family Three times a week 10/09/2018 Attends Rastafarian Services More than 4 times per year [...] PHQ-2 Answer Date Recorded PHQ-2 Score 0 01/06/2020 [facility] of Occupat ional Health - Occupational Stress [...] things needed for daily living? No 10/09/2018 Education Answer Date Recorded What is the [...] on file documented as of this encounter Procedures Procedure Name Priority Date/Time Associated Diagnosis Comments RBC FOLATE Routine 04/27/2022 11:07 AM MACROECONOMICS PROFESSOR CBC WITH PLATELETS & DIFFERENTIAL Routine 04/27/2022 11:07 AM MACROECONOMICS PROFESSOR IRON Routine 04/27/2022 11:07 AM MACROECONOMICS PROFESSOR FERRITIN Routine 04/27/2022 11:07 AM MACROECONOMICS PROFESSOR documented in this encounter Results * RBC Folate (04/27/2022 11:07 AM MACROECONOMICS PROFESSOR) Folate RBC 592 >=366 NG/Ml NON-INT ERFACED (ONBASE SCANS) Blood 04/27/2022 11:0 7 AM MACROECONOMICS PROFESSOR Narrative CASANDRA PFT - 05/24/2023 2:27 PM CDT Verified by Uriel Livingston on 05/24/2023. Provider Outside LAB - BLOOD ORDERABL ES CASANDRA PFLynn NON-INTERFACED (ONBASE SCANS) * (ABNORMAL) CBC with Platelets & Differential (04/27/2022 11:07 AM MACROECONOMICS PROFESSOR) WBC Count (External) 7.37 4.5 - 11.0 K/UL NON-INTERFACE D (ONBASE SCANS) RBC Count (External) 3.86(L) 4.3 - 5.90 M/UL NON-INTERFACE D (ONBASE SCANS) Hemoglobin (External) 12.4(L) 13.5 - 17.5 gm/dl NON-INTERFACE D (ONBASE SCANS) Hematocrit (External) 39.5 37.0 - 53.0 % NON-INTERFACE D (ONBASE SCANS) MCV (External) 102(H) 80 - 100 fL NON-INTERFACE D (ONBASE SCANS) MCH (External) 32 26 - 34 pg NON- INTERFACE D (ONBASE SCANS) MCHC (External) 31(L) 32 - 36 g/dL NON-INTERFACE D (ONBASE SCANS) Platelet Count (External) 138(L) 140 - 440 K/UL NON-INTERFACE D (ONBASE SCANS) % Neutrophils (External) 66.7 42 - 72 % NON-INTERFACE D (ONBASE SCANS) % Lymphocytes (External) 19.8(L) 20 - 44 % NON-INTERFACE D (ONBASE SCANS) % Monocytes (External) 11.7(H) 0.0 - 11.0 % NON-INTERFACE D (ONBASE SCANS) % Eosinophils (External) 1.5 0.0 - 7.0 % NON-INTERFACE D (ONBASE SCANS) % Basophils (External) 0.3 0.0 - 3.0 % NON-INTERFACE D (ONBASE SCANS) Absolute Neutrophils (External) 4.92 1.7 - 7.0 K/UL NON-INTERFACE D (ONBASE SCANS) Absolute Lymphocytes (External) 1.50 0.90 - 2.90 K/UL NON-INTERFACE D (ONBASE SCANS) Absolute Monocytes (External) 0.90 0.0 - 0.9 K/UL NON-INTERFACE D (ONBASE SCANS) Absolute Eosinophils (External) 0.11 0.00 - 0.50 K/UL NON-INTERFACE D (ONBASE SCANS) Absolute Basophils (External) 0.02 0.0 - 0.3 K/UL NON-INTERFACE D (ONBASE SCANS) Blood BLOOD SPECIMEN / Unknown 04/27/2022 11:07 AM ZEKE GUAJARDO PFT - 05/24/2023 2:27 PM CDT Verified by Uriel Livingston on 05/24/2023. Provider Outside LAB - BLOOD ORDERABL ES BREEZE PFT NON-INTERFACED (ONBASE SCANS) * Iron (04/27/2022 11:07 AM MACROECONOMICS PROFESSOR) Iron (External) 87 49 - 181 ug/dl NON-INTERFACED (ONBASE SCANS) Blood BLOOD SPECIMEN / Unknown 04/27/2022 11:07 AM MACROECONOMICS PROFESSOR Narrative BREEZE PFT - 05/24/2023 2:27 PM CDT Verified by Uriel Livingston on 05/24/2023. Provider Outside LAB - BLOOD ORDERABL ES Performing Organization Address [facility]/ZIP Co de Phone Number BREEZE PFT NON-INTERFACED (ONBASE SCANS) * Ferritin (04/27/2022 11:07 AM MACROECONOMICS PROFESSOR) Ferritin (External) 68.0 17.9 - 464.0 ng/ml NON-INTERFACED (ONBASE SCANS) Blood BLOOD SPECIMEN / Unknown 04/27/2022 11:07 AM MACROECONOMICS PROFESSOR Narrative BREEZE PFT - 05/24/2023 2:27 PM CDT Verified by Uriel Livingston on 05/24/2023. Provider Outside LAB - BLOOD ORDERABL ES Performing Organization Address [facility] Co de Phone Number BREEZE PFT NON-INTERFACED (ONBASE SCANS) documented in this encounter Visit Diagnoses Not on filedocumented in this encounter Care Teams Rehab Director Relationship Specialty Start Date End Date Carlos Godinez MD [facility] [address] [place] [address] PCP - General Family Medicine 12/07/21 Atul Hagan MD [address] [place] [address] Assigned Heart and Vascular Provider 11/14/20 03/21/23 Sarwat Grossman MD [address] [place] [address] Assigned PCP 04/22/22 11/03/22 Emma Burnham APRN GOLF SHOE SPIKE ASSEMBLER [address] [place] [address] Assigned PCP 11/04/22 Ioana Higgins PA-C [address] [place] [address] Assigned Heart and Vascular Provider 03/22/23 documented as of this encounter
--- OUTSIDE RECORDS SUMMARY | 2023-09-04 08:06 | XMS_ITS | Encounter Summary ---
Author Organization [facility] Address [address] [place] [address]. [place] [address] Care Team Providers Care Tabulating Machine Mechanic Name Role Phone Atul Hagan MD Unavailable Carlos Godinez MD Primary Care Provider Sarwat Grossman MD Unavailable [phone] Emma Burnham APRN BREWING DIRECTOR Unavailable [phone] Ioana Higgins PA-C Unavailable [phone] Reason for Visit * Reason Onset Date Comments Med Change Request 05/16/2022 ELIQUIS ANTIC OAGULANT 5 MG tablet [[id number] Encounter Details Date Type Department Care Team (Late st Contact Info) Description 05/16/2022 Telephone [facility] [address] [place] [address] Atul Hagan MD [address] [facility] [address] [place] [address] Med Change Request (ELIQUIS ANTICOAGULANT 5 MG tablet [[id number]) Social History Tobacco Use Types Packs/Day Years [...] Family Three times a week 10/09/2018 Attends Spiritism Services More than 4 times per year [...] Answer Date Recorded PHQ-2 Score 0 01/06/2020 [facility] [place] of Occupat ional Health - Occupational Stress [...] encounter Miscellaneous Notes * Telephone Encounter - Vanita Fletcher - 05/16/2022 9:21 AM CDT Health Call Center Phone Message May a detailed message be left on voicemail: yes Reason for Call: Medication Refill Request Has the patient contacted the pharmacy for the refill? Yes Name of medication being requested: ELIQUIS ANTICOAGULANT 5 MG tablet [[id number] Provider who prescribed the medication: dr Hagan Pharmacy: [facility] DELIVERY - [address] Date medication is needed: 05/16/2022 this is mail order so it takes a couple of days and he is almost out of his medication. Action Taken: Other: cardio Travel Screening: Not Applicable Thank you! [facility] documented in this encounter Plan of Treatment Not on file documented as of this encounter Visit Diagnoses Not on filedocumented in this encounter Care Teams Tabulating Machine Mechanic Relationship Specialty Start Date End Date Carlos Godinez MD [facility] [address], [place] [address] PCP - General Family Medicine 12/07/21 Atul Hagan MD [address] [place] [address] Assigned Heart and Vascular Provider 11/14/20 03/21/23 Sarwat Grossman MD [address] [place] [address] Assigned PCP 04/22/22 11/03/22 Emma Burnham APRN [facility] [address] [place] [address] Assigned PCP 11/04/22 Ioana Higgins PA-C [address] [address] Assigned Heart and Vascular Provider 03/22/23 documented as of this encounter
--- OUTSIDE RECORDS SUMMARY | 2023-09-04 08:06 | XMS_ITS | Encounter Summary ---
Author Organization [facility] Address [address] [place] [address]. [place] [address] Care Team Providers Care Chocolate Maker Name Role Phone Carlos Godinez MD Primary Care Provider [phone] Emma Burnham APRN RISK MANAGER Unavailable [phone] Ioana Higgins PA-C Unavailable [phone] Encounter Details Date Type Department Care Team (Late st Contact Info) Description 05/22/2023 External Order Results [facility] [address] [place] [address] Outside, Provider Paroxysmal atrial fibrillation (H) Social History Tobacco Use Types Packs/Day Years [...] Family Three times a week 10/09/2018 Attends Cheondoism Services More than 4 times per year [...] PHQ-2 Answer Date Recorded PHQ-2 Score 0 07/27/2022 [facility] [place] of Occupat ional Health - Occupational Stress [...] Procedure Name Priority Date/Time Associated Diagnosis Comments URIC ACID Routine 05/22/2023 8:02 AM CDT TSH Routine 05/22/2023 8:02 AM CDT PSA TUMOR MARKER Routine 05/22/2023 8:02 AM CDT LIPID PROFILE Routine 05/22/2023 8:02 AM CDT HEPATIC FUNCTION PANEL Routine 05/22/2023 8:02 AM CDT BASIC METABOLIC PANEL Routine 05/22/2023 8:02 AM CDT Paroxysmal atrial fibrillation (H) CBC WITH PLATELETS Routine 05/22/2023 8: 02 AM CDT Paroxysmal atrial fibrillation (H) documented in this encounter Results * (ABNORMAL) Hepatic function panel (05/22/2023 8:02 [...] - BLOOD ORDERABL ES Performing Organization Address [facility] Co de Phone Number BREEZE PFT NON-INTERFACED (ONBASE SCANS) * Uric acid (05/22/2023 8:02 AM CDT) Uric Acid (External) 3.4 2.2 - 8.4 mg/dL NON-INTERFACED (ONBASE SCANS) Blood BLOOD SPECIMEN / Unknown 05/22/2023 8:02 AM CDT Narrative BREEZE PFT - 06/01/2023 3:48 PM CDT Verified by Oksana Robert on 06/01/2023. Provider Outside LAB - BLOOD ORDERABL Performing Organization Address [facility] de Phone Number BREEZE PFT NON-INTERFACED (ONBASE SCANS) * PSA tumor marker (05/22/2023 8:02 AM CDT) PSA (External) 1.74 0.10 - 4.00 ng/mL NON-INTERFACED (ONBASE SCANS) Blood BLOOD SPECIMEN / Unknown 05/22/2023 8:02 AM CDT Narrative BREEZE PFT - 06/01/2023 3:48 PM CDT Verified by Oksana Robert on 06/01/2023. Provider Outside LAB - BLOOD ORDERABL Performing Organization Address [facility] de Phone Number BREEZE PFT NON-INTERFACED (ONBASE SCANS) * Lipid Profile (05/22/2023 8:02 AM CDT) Pathologist [facility] Triglycerides (External) 75 40 - 149 mg/dL [...] - BLOOD ORDERABL ES Performing Organization Address [facility] Co de Phone Number BREEZE PFT NON-INTERFACED (ONBASE SCANS) * (ABNORMAL) TSH (05/22/2023 8:02 AM CDT) Pathologist [facility] TSH (External) 0.202(L) 0.270 - 4.20 uIU/mL NON-INTERFACE D (ONBASE SCANS) Blood BLOOD SPECIMEN / Unknown 05/22/2023 8:02 AM CDT Narrative BREEZE PFT - 06/01/2023 3:48 PM CDT Verified by Oksana Robert on 06/01/2023. Provider Outside LAB - BLOOD ORDERABL ES Performing Organization Address [facility]/ZIP Co de Phone Number [facility]FAC[facility] (ONBASE SCANS) * (ABNORMAL) CBC with platelets (05/22/2023 8:02 AM CDT) Pathologist [facility] WBC Count (External) 8.29 4.50 - 11.00 [...] MD LAB - BLOOD ORDERABL ES CASANDRA Lynn NON-INTERFACED (ONBASE SCANS) * Basic metabolic panel [...] Hagan MD LAB - BLOOD ORDERABL ES BREEZE PFT NON-INTERFACED (ONBASE SCANS) documented in this encounter Visit Diagnoses Diagnosis Paroxysmal atrial fibrillation (H) Atrial fibrillation documented in this encounter Care Teams Chocolate Maker Relationship Specialty Start Date End Date Carlos Godinez MD [facility] [address] [place] [address] PCP - General Family Medicine 12/07/21 Emma Burnham APRN CNP [address] [place] [address] Assigned PCP 11/04/22 Ioana Higgins PA-C [address] [place] [address] Assigned Heart and Vascular Provider 03/22/23 documented as of this encounter
--- OUTSIDE RECORDS SUMMARY | 2023-09-04 08:06 | XMS_ITS | Encounter Summary ---
Author Organization [facility] Address [address] [place] [address] Care Team Providers Care Cray Fishing Hand Name Role Phone Sarwat Grossman MD Primary Care Provider [phone] Sarwat Grossman MD Unavailable [phone] Sarwat Grossman MD Unavailable [phone] Sushma Mejia DO Unavailable [phone] Sarwat Grossman MD Unavailable [phone] Sushma Mejia DO Unavailable [phone] Atul Hagan MD Unavailable [phone] Carlos Godinez MD Primary Care Provider [phone] Emma Burnham APRN APPRENTICE PAINTER BRUSH Unavailable [phone] Sarwat Grossman MD Unavailable [phone] Emma Burnham APRN APPRENTICE PAINTER BRUSH Unavailable [phone] Ioana Higgins PA-C Unavailable [phone] Encounter Details Date Type Department Care Team (Late st Contact Info) Description 05/23/2017 MyC Medical Advice [address] [place] [address] Susana Lopez RN Social History Tobacco Use Types Packs/Day Years Used Date Smoking Tobacco: Former Cigarettes Q uit: 03/29/2005 Smokeless Tobacco: Never Alcohol Use Standard Drinks/Week Comments Yes 0 (1 standard drink = 0.6 oz pur e alcohol) rarely Sex and Gender Information Value Date Recorded Sex Assigned at Not on file Gender Identity Not on file Sexual Orientation Choose not to disclose 2020 8:52 AM CDT documented as of this encounter Plan of Treatment Not on file documented as of this encounter Visit Diagnoses Not on filedocumented in this encounter Care Teams Cray Fishing Hand Relationship Specialty Start Date End Date Sarwat Grossman MD [address] [place] [address] PCP - General Internal Medicine-Hematology & Oncology 10/26/15 12/06/21 Sarawt Grossman MD [address] [place] [address] PCP - Assigned PCP 10/14/17 04/30/18 Carlos Godinez MD [facility] [address] [place] [address] PCP - General Family Medicine 12/07/21 Sarwat Grossman MD [address] [place] [address] Assigned PCP 10/14/17 10/11/19 Sushma Mejia DO [facility] [place] [address] Assigned PCP 10/12/19 10/18/19 Sarwat Grossman MD [address] [place] [address] Assigned PCP 10/19/19 06/26/20 Sushma Mejia DO [address] [place] [address] Assigned PCP 06/27/20 02/03/22 Atul Hagan MD [address] [place] [address] Assigned Heart and Vascular Provider 11/14/20 03/21/23 Emma Burnham APRN APPRENTICE PAINTER BRUSH [address] [place] [address] Assigned PCP 02/04/22 04/21/22 Sarwat Grossman MD [address] [place] [address] Assigned PCP 04/22/22 11/03/22 Emma Burnham APRN APPRENTICE PAINTER BRUSH [address] [place] [address] Assigned PCP 11/04/22 Ioana Higgins PA-C [address] [address] Assigned Heart and Vascular Provider 03/22/23 documented as of this encounter
--- OUTSIDE RECORDS SUMMARY | 2023-09-04 08:06 | XMS_ITS | Encounter Summary ---
Author Organization [facility] Address [address] [place] [address] Care Team Providers Care Burrer Marker Axle Name Role Phone Sarwat Grossman MD Primary Care Provider [phone] Sarwat Grossman MD Unavailable [phone] Sushma Mejia DO Unavailable [phone] Atul Hagan MD Unavailable Carlos Godinez MD Primary Care Provider Emma Burnham APRN MID TEACHER Unavailable [phone] Sarwat Grossman MD Unavailable [phone] Emma Burnham APRN MID TEACHER Unavailable [phone] Ioana Higgins PA-C Unavailable Encounter Details Date Type Department Care Team (Late st Contact Info) Description 12/29/2019 MyC Medical Advice [facility] [address] [place] [address] Sarwat Grossman MD [address] [place] [address] Social History Tobacco Use Types Packs/Day Years [...] Family Three times a week 10/09/2018 Attends Sabianist Services More than 4 times per year [...] PHQ-2 Answer Date Recorded PHQ-2 Score 0 03/12/2018 [facility] [place] of Occupat ional Health - Occupational Stress [...] on filedocumented in this encounter Care Teams Burrer Marker Axle Relationship Specialty Start Date End Date Sarwat Grossman MD [address] [facility] [address] [place] [address] PCP - General Internal Medicine-Hematology & Oncology 10/26/15 12/06/21 Carlos Godinez MD [facility] [address] [place] [address] PCP - General Family Medicine 12/07/21 Sarwat Grossman MD [address] [facility] [address] [place] [address] Assigned PCP 10/19/19 06/26/20 Sushma Mejia DO [address] [facility] [place] [address] Assigned PCP 06/27/20 02/03/22 Atul Hagan MD [address] [place] [address] Assigned Heart and Vascular Provider 11/14/20 03/21/23 Emma Burnham APRN MID TEACHER [address] [place] [address] Assigned PCP 02/04/22 04/21/22 Sarwat Grossman MD [address] [place] [address] Assigned PCP 04/22/22 11/03/22 Emma Burnham APRN MID TEACHER [address] [place] [address] Assigned PCP 11/04/22 Ioana Higgins PA-C [address] [address] Assigned Heart and Vascular Provider 03/22/23 documented as of this encounter
--- OUTSIDE RECORDS SUMMARY | 2023-09-04 08:06 | XMS_ITS | Encounter Summary ---
Author Organization [place] Address [address] [place] [address] Care Team Providers Care Nuclear Unit Operator Name Role Phone Jaylin Caballero MD Primary Care Provider Confirmed, No Pcp Primary Care Provider Unavaila ble Sarwat Grossman MD Primary Care Provider [phone] Sarwat Grossman MD Unavailable [phone] Sarwat Grossman MD Unavailable [phone] Sushma Mejia DO Unavailable [phone] Sarwat Grossman MD Unavailable [phone] Sushma Mejia DO Unavailable [phone] Atul Hagan MD Unavailable [phone] Carlos Godinez MD Primary Care Provider [phone] Emma Burnham APRN RESPIRATORY CARE SPECIALIST Unavailable + [phone] Sarwat Grossman MD Unavailable [phone] Emma Burnham APRN RESPIRATORY CARE SPECIALIST Unavailable + [phone] Ioana Higgins PA-C Unavailable [phone] Encounter Details Date Type Department Care Team (Late st Contact Info) Description 02/07/2013 Office Visit-[facility] [address] [place] [id number] Atul Hagan MD [address] [place] [address] Social History Tobacco Use Types Packs/Day Years Used Date Smoking Tobacco: Never Assessed Sex and Gender Information Value Date Recorded Sex Assigned at Not on file Gender Identity Not on file Sexual Orientation Choose not to disclose 2020 8:52 AM CDT documented as of this encounter Progress Notes * Atul Hagan MD - 02/14/2013 3:55 PM CST Progress Note Created by: Atul Hagan M.D. DATE: 02/07/2013 JUANCARLOS ALAS DATE OF : 1940 AGE: [age] years old Referring Physician: JAYLIN CABALLERO Referring Clinic: [facility] CURRENT DIAGNOSES 1. - Hypertension, benign, 401.1 2. - Atrial Fibrillation, 427.31 3. - Hypercholesterolemia, 272.0 4. - CAD, 414.00 5. - CABG, V45.81 6. - Shortness of Breath, 786.05 ALLERGIES Lisinopril, Cough MEDICATIONS (prior to changes made today) 1. Allopurinol 300 mg Tablet, 1 p.o. daily 2. Aspirin 81 Mg Tablet, 1 p.o. daily 3. Diovan 80 mg Tablet, 1 p.o. daily 4. Nitroglycerin 0.4 Mg Tablet, Sublingual, Take as Directed 5. Simvastatin 20 mg Tablet, 1 p.o. qHS 6. Synthroid 175 Mcg Tablet, 1 p.o. daily 7. terazosin 1 mg capsule, 3 p.o. daily 8. Warfarin 5 Mg Tablet, Take as Directed CHIEF COMPLAINTS Review lab results HISTORY OF PRESENT ILLNESS I had the opportunity to see Mr. Juancarlos Alas in Cardiology Clinic today for reevaluation of coronary artery disease, hypertension, dyslipidemia, and atrial fibrillation. As you may recall, he is a 72-year-old gentleman who had bypass surgery back in 1994 and in 2004 underwent angioplasty and stenting in the right coronary artery and ramus arteries. His symptoms with coronary disease have primarily been shortness of breath. He seemed to have more shortness of breath in 2010 and underwent some evaluation, including a stress test with nuclear imaging which appeared normal, an echocardiogram which was essentially normal, a Holter monitor which showed sinus rhythm with PACs and PVCs, and pulmonary function testing which showed evidence of mild COPD. At this point he tells me that his breathing is about the same. He has not noticed any worsening shortness of breath but still has some shortness of breath with walking more prolonged distances. He does not have chest discomfort, palpitations, lightheadedness, or syncope. On examination today his blood pressure is 120/70, heart rate 72, and weight 248 pounds. His lungs are clear. His heart rhythm is regular. I do not hear any cardiac murmurs or carotid bruits and he has no edema. PAST HISTORY Past Medical Illnesses: hypertension, osteoarthritis, obstructive sleep apnea, hypothyroidism, gout Past Cardiac Illnesses: atrial fibrillation, coronary artery disease Surgeries/Procedures - General: Right total knee arthroplasty 06/2005, Left total knee arthroplasty Cardiac and Vascular Surgeries: CABG 1994 Cardiac/Vasc Procedures-Invasive: cardiac cath (left) May 2004 Cardiology Procedures-NonInvasive: myocardial perfusion imaging (Nuclear) 05/01, 05/03, 06/04, 10/06, echocardiogram April 2005, stress echo May 2004, holter monitor Sep 2010 Cardiac Cath Results: angioplasty with 1 cypher stents to RCA and ramus 05/2004 PMHx Echo Results: 05/01 mild aortic root enlargement, LA enlargement, borderline to mild concentric LVH PMHx Stress Echo Results: 05/31 possible false positive Left Ventricular Ejection Fraction: EF<GT>50% by nuclear study -April 2005, EF<GT>55% by nuclear study -Sep 2010 Nuclear Results: 06/04 no ischemia, 09/2010 no significant change since 2008 EF<GT>50% by nuclear study -April 2005 and EF<GT>55% by nuclear study -Sep 2010 FAMILY HISTORY: Father - Age 89, hyperlipemia and hypertension; Mother - Age 83, hypertension; SOCIAL HISTORY Alcohol Use - drinks rarely; Smoking - used to smoke but quit and 2008; Diet - regular diet withoutmodifications and caffeine use-1-2 per day; Lifestyle - ; Exercise - no regular exercise andsome walking; Seat Belt Use - always; Occupation - retired; Residence - lives with ; REVIEW OF SYSTEMS GENERAL energy level is fine INTEGUMENTARY denies any change in hair or nails, rashes, or skin lesions. EYES wears eye glasses/contact lenses EARS, NOSE, THROAT, MOUTH partial hearing loss, hearing aide(s), stuffy nose RESPIRATORY sleep apnea, uses cpap, same, dyspnea with exertion, steps CARDIOVASCULAR negative for palpitations, chest pain, orthopnea, PND, peripheral edema, syncope or claudication. ABDOMINAL denies change in bowel habits, dyspepsia, ulcer disease, hematochezia or melena. GENITOURINARY-MALE positive for nocturia MUSCULOSKELETAL positive for history of osteoarthritis, positive for joint stiffness, back, carpal tunnel syndrom in right wrist NEUROLOGICAL denies any history of recurrent headaches, strokes, TIA, or seizure disorder., moves all extremities PSYCHIATRIC denies any history of depression, substance abuse or change in cognitive functions. ENDOCRINE positive for fatigue, positive for hypothyroidism HEMATOLOGICAL/IMMUNOLOGIC denies any food allergies, seasonal allergies, bleeding disorders or lymphadenopathy. PHYSICAL EXAMINATION VITAL SIGNS: Blood Pressure: 120/70Sitting, Left arm, regular cuff Pulse- 72.00/min. Weight- 248.40 lbs. Height- 73 BMI Measurement: 33 CONSTITUTIONAL cooperative, alert and oriented,well developed, well nourished, in no acute distress. SKIN warm and dry to touch, no apparent skin lesions, or masses noted. HEAD normocephalic, atraumatic EYES Pupils equal and round, conjunctivae and lids unremarkable, sclera white, no xanthalasma NECK carotid pulses are full and equal bilaterally, JVP normal, no carotid bruit, no thyromegaly CHEST normal symmetry, no tenderness to palpation, normal respiratory excursion, no intercostal retraction, no use of accessory muscles, clear to auscultation and percussion. CARDIAC regular rhythm, S1 normal, S2 normal, No S3 or S4, Apical impulse not displaced, no murmurs, gallops or rubs detected. ABDOMEN abdomen soft, bowel sounds normoactive, no masses, no hepatosplenomegaly, non- tender, no bruits PERIPHERAL PULSES pulses full and equal in all extremities, no bruits auscultated. EXTREMITIES & BACK no deformities, clubbing, cyanosis, erythema or edema observed. There are no spinal abnormalities noted. Normal muscle strength and tone. NEUROLOGICAL no gross motor deficits noted, affect appropriate, oriented to time, person and place. MEDICATIONS UPDATED/STARTED TODAY: terazosin 1 mg capsule, 3 p.o. daily, #0 (Zero) MEDICATIONS REFILLED/STOPPED TODAY: Metoprolol Tartrate 25 Mg Tablet 1 p.o. twice daily #0 Physician Order and terazosin 1 mg Capsule 3mg daily #0 Directions Changed-No Abbrvs IMPRESSIONS/PLAN Mr. Juancarlos Alas is a 72-year-old gentleman with hypertension which is well controlled, dyslipidemia which is well controlled except for perhaps a slightly low HDL, and coronary artery disease as described above. I do not believe he has any progression in his coronary artery disease based on his current symptoms, although I suspect he is not very active. I encouraged him to exercise regularly davis daily basis consistently and to work on weight loss. I think his shortness of breath at this point is primarily due to obesity and deconditioning. I am hoping that he can lose about 20 pounds before I see him back again next year. I will plan on doing some stress testing again at that point to help keep track of his coronary disease issues. I will not make any medication changes. TODAYS ORDERS 1. F/U with Atul Hagan MD 1 year 2. Treadmill Nuclear Study 1 year, Patient OFF Meds, MD able to convert to pharm stress if pt unable to exercise Atul Hagan M.D. documented in this encounter Plan of Treatment Not on file documented as of this encounter Visit Diagnoses Not on filedocumented in this encounter Care Teams Nuclear Unit Operator Relationship Specialty Start Date End Date Jaylin Caballero MD PCP - General Internal Medicine 11/19/13 10/13/15 Confirmed, No Pcp PCP - General 10/14/15 10/25/15 Sarwat Grossman MD [address] [place] [address] PCP - General Internal Medicine-Hematology & Oncology 10/26/15 12/06/21 Sarwat Grossman MD [address] [place] [address] PCP - Assigned PCP 10/14/17 04/30/18 Carlos Godinez MD [facility] [address] [place] [address] PCP - General Family Medicine 12/07/21 Sarwat Grossman MD [address] [place] [address] Assigned PCP 10/14/17 10/11/19 Sushma Mejia DO [address] [place] [address] Assigned PCP 10/12/19 10/18/19 Sarwat Grossman MD [address] [place] [address] Assigned PCP 10/19/19 06/26/20 Sushma Mejia DO [address] [place] [address] Assigned PCP 06/27/20 02/03/22 Atul Hagan MD [address] [facility] [address] [place] [address] Assigned Heart and Vascular Provider 11/14/20 03/21/23 Emma Burnham APRN RESPIRATORY CARE SPECIALIST [address] [place] [address] Assigned PCP 02/04/22 04/21/22 Sarwat Grossman MD [address] [place] [address] Assigned PCP 04/22/22 11/03/22 Emma Burnham APRN RESPIRATORY CARE SPECIALIST [address] [place] [address] Assigned PCP 11/04/22 Ioana Higgins PA-C [address] [place] [address] Assigned Heart and Vascular Provider 03/22/23 documented as of this encounter
--- OUTSIDE RECORDS SUMMARY | 2023-09-04 08:06 | XMS_ITS | Encounter Summary ---
Author Organization [place] Address [address] [place] [address] Care Team Providers Care Assurance Associate Name Role Phone Sarwat Grossman MD Primary Care Provider Sarwat Grossman MD Unavailable Sushma Mejia DO Unavailable [phone] Atul Hagan MD Unavailable Carlos Godinez MD Primary Care Provider Emma Brunham APRN ACCESS DATABASE DEVELOPER Unavailable Sarwat Grossman MD Unavailable [phone] Emma Burnham APRN ACCESS DATABASE DEVELOPER Unavailable + [phone] Ioana Higgins PA-C Unavailable [phone] Encounter Details Date Type Department Care Team (Late st Contact Info) Description 03/05/2020 [facility] [address] [place] [address] Linda Lemus APRN ACCESS DATABASE DEVELOPER NO INFO AVAILABLE 09/18/2022 Social History Tobacco Use Types Packs/Day Years [...] Family Three times a week 10/09/2018 Attends [employer] More than 4 times per year [...] Date Recorded PHQ-2 Score 0 01/06/2020 [facility] of Occupat ional Health - Occupational Stress [...] on filedocumented in this encounter Care Teams Assurance Associate Relationship Specialty Start Date End Date Sarwat Grossman MD [address] [place] [address] PCP - General Internal Medicine-Hematology & Oncology 10/26/15 12/06/21 Carlos Godinez MD [facility] [address] [place] [address] PCP - General Family Medicine 12/07/21 Sarwat Grossman MD [address] [address] Assigned PCP 10/19/19 06/26/20 Sushma Mejia DO [facility] [place] [address] Assigned PCP 06/27/20 02/03/22 Atul Hagan MD [address] [place] [address] Assigned Heart and Vascular Provider 11/14/20 03/21/23 Emma Burnham APRN ACCESS DATABASE DEVELOPER [address] [place] [address] Assigned PCP 02/04/22 04/21/22 Sarwat Grossman MD [address] [place] [address] Assigned PCP 04/22/22 11/03/22 Emma Burnham APRN ACCESS DATABASE DEVELOPER [address] [place] [address] Assigned PCP 11/04/22 Ioana Higgins PA-C [address] [place] [address] Assigned Heart and Vascular Provider 03/22/23 documented as of this encounter
--- OUTSIDE RECORDS SUMMARY | 2023-09-04 08:06 | XMS_ITS | Encounter Summary ---
Author Organization [place] Address [address] [place] [address] Care Team Providers Care High Climber Name Role Phone Sarwat Grossman MD Primary Care Provider [phone] Sarwat Grossman MD Unavailable [phone] Sarwat Grossman MD Unavailable [phone] Sushma Mejia DO Unavailable [phone] Sarwat Grossman MD Unavailable [phone] Sushma Mejia DO Unavailable [phone] Atul Hagan MD Unavailable [phone] Carlos Godinez MD Primary Care Provider [phone] Emma Burnham APRN MINE SAFETY ENGINEER Unavailable + [phone] Sarwat Grossman MD Unavailable [phone] Emma Burnham APRN MINE SAFETY ENGINEER Unavailable + [phone] Ioana Higgins PA-C Unavailable [phone] Encounter Details Date Type Department Care Team (Late st Contact Info) Description 11/25/2017 [facility] [address] [place] [address] Sarwat Grossman MD [address] [place] [address] Social History Tobacco Use Types Packs/Day Years [...] on filedocumented in this encounter Care Teams High Climber Relationship Specialty Start Date End Date Sarwat Grossman MD [address] [place] [address] PCP - General Internal Medicine-Hematology & Oncology 10/26/15 12/06/21 Sarwat Grossman MD [address] [place] [address] PCP - Assigned PCP 10/14/17 04/30/18 Carlos Godinez MD [place] [id number] [place] [address] PCP - General Family Medicine 12/07/21 Sarwat Grossman MD [address] [place] [address] Assigned PCP 10/14/17 10/11/19 [place] [address] [place] [address] Assigned PCP 10/12/19 10/18/19 Sarwat Grossman MD [address] [place] [address] Assigned PCP 10/19/19 06/26/20 Sushma Mejia DO [address] [place] [address] Assigned PCP 06/27/20 02/03/22 Atul Hagan MD [address] [place] [address] Assigned Heart and Vascular Provider 11/14/20 03/21/23 Emma Burnham APRN MINE SAFETY ENGINEER [address] [place] [address] Assigned PCP 02/04/22 04/21/22 Sarwat Grossman MD [address] [address] Assigned PCP 04/22/22 11/03/22 Emma Burnham APRN MINE SAFETY ENGINEER [address] [place] [address] Assigned PCP 11/04/22 Ioana Higgins PA-C [address] [place] [address] Assigned Heart and Vascular Provider 03/22/23 documented as of this encounter
--- OUTSIDE RECORDS SUMMARY | 2023-09-04 08:06 | XMS_ITS | Encounter Summary ---
Author Organization [place] Address [address] [place] [address] Care Team Providers Care Observation Nurse Name Role Phone Sarwat Grossman MD Primary Care Provider [phone] Sarwat Grossman MD Unavailable [phone] Sarwat Grossman MD Unavailable Sushma Mejia DO Unavailable [phone] Sarwat Grossman MD Unavailable [phone] Sushma Mejia DO Unavailable [phone] Atul Hagan MD Unavailable [phone] Carlos Godinez MD Primary Care Provider [phone] Emma Burnham APRN PRECISION AGRICULTURE TECHNICIAN Unavailable + [phone] Sarwat Grossman MD Unavailable [phone] Emma Burnham APRN PRECISION AGRICULTURE TECHNICIAN Unavailable + [phone] Ioana Higgins PA-C Unavailable [phone] Encounter Details Date Type Department Care Team (Late st Contact Info) Description 10/08/2016 [facility] [address] [place] [address] Sarwat Grossman MD [address] [place] [address] Social History Tobacco Use Types Packs/Day Years [...] on filedocumented in this encounter Care Teams Observation Nurse Relationship Specialty Start Date End Date Sarwat Grossman MD [address] [place] [address] PCP - General Internal Medicine-Hematology & Oncology 10/26/15 12/06/21 Sarwat Grossman MD [address] [place] [address] PCP - Assigned PCP 10/14/17 04/30/18 Carlos Godinez MD [place] [id number] [address] [place] [address] PCP - General Family Medicine 12/07/21 Sarwat Grossman MD [address] [place] [address] Assigned PCP 10/14/17 10/11/19 [place] [address] [place] [address] Assigned PCP 10/12/19 10/18/19 Sarwat Grossman MD [address] [place] [address] Assigned PCP 10/19/19 06/26/20 Sushma Mejia DO [address] [place] [address] Assigned PCP 06/27/20 02/03/22 Atul Hagan MD [address] [place] [address] Assigned Heart and Vascular Provider 11/14/20 03/21/23 Emma Burnham APRN PRECISION AGRICULTURE TECHNICIAN [address] [place] [address] Assigned PCP 02/04/22 04/21/22 Sarwat Grossman MD [address] [address] Assigned PCP 04/22/22 11/03/22 Emma Burnham APRN PRECISION AGRICULTURE TECHNICIAN [address] [place] [address] Assigned PCP 11/04/22 Ioana Higgins PA-C [address] [place] [address] Assigned Heart and Vascular Provider 03/22/23 documented as of this encounter
--- OUTSIDE RECORDS SUMMARY | 2023-09-04 08:06 | XMS_ITS | Encounter Summary ---
Author Organization [facility] Address [address] [place] [address] Care Team Providers Care Switchgear Repairer Name Role Phone Jaylin Caballero MD Primary Care Provider Confirmed, No Pcp Primary Care Provider Unavaila ble Sarwat Grossman MD Primary Care Provider [phone] Sarwat Grossman MD Unavailable [phone] Sarwat Grossman MD Unavailable [phone] Sushma Mejia DO Unavailable [phone] Sarwat Grossman MD Unavailable [phone] Sushma Mejia DO Unavailable [phone] Atul Hagan MD Unavailable [phone] Carlos Godinez MD Primary Care Provider [phone] Emma Burnham APRN WALL MAN Unavailable [phone] Sarwat Grossman MD Unavailable [phone] Emma Burnham APRN WALL MAN Unavailable + [phone] Ioana Higgins PA-C Unavailable [phone] Encounter Details Date Type Department Care Team (Late st Contact Info) Description 10/17/2010 Office Visit-[facility] [address] [place] [id number] Mercy Bernard, TEACHER KINDERGARTEN WALL MAN [address] [place] [address] Social History Tobacco Use Types Packs/Day Years Used Date Smoking Tobacco: Never Assessed Sex and Gender Information Value Date Recorded Sex Assigned at Not on file Gender Identity Not on file Sexual Orientation Choose not to disclose 2020 8:52 AM CDT documented as of this encounter Progress Notes * Mercy Bernard, SPECIAL EVENTS COORDINATOR - 10/20/2010 3:54 PM CDT Progress Note Created by: Mercy Bernard N.P. [id number] DATE: 10/17/2010 BISHOPJUANCARLOS DATE OF : 1940 AGE: [age] years old Referring Physician: JAYLIN CABALLERO Referring Clinic: [facility] CURRENT DIAGNOSES 1. - Shortness of Breath, 786.05 2. - Hypertension, benign, 401.1 3. - Atrial Fibrillation, 427.31 4. - Hypercholesterolemia, 272.0 5. - CAD, 414.00 6. - CABG, V45.81 ALLERGIES Lisinopril, Cough MEDICATIONS (prior to changes made today) 1. Simvastatin 20 mg Tablet, 1 p.o. qHS 2. Allopurinol 300 mg Tablet, 1 p.o. daily 3. Metoprolol Tartrate 25 Mg Tablet, 1 p.o. twice daily 4. Diovan 80 mg Tablet, 1 p.o. daily 5. Synthroid 175 Mcg Tablet, 1 p.o. daily 6. Warfarin 5 Mg Tablet, Take as Directed 7. Aspirin 81 Mg Tablet, 1 p.o. daily 8. terazosin 1 mg Capsule, 3 mg daily 9. Nitroglycerin 0.4 Mg Tablet, Sublingual, Take as Directed CHIEF COMPLAINTS Followup of test results HISTORY OF PRESENT ILLNESS: This is a delightful 70-year-old male who presents to the [facility] today for a follow up visit. He is a patient of Dr. Hagan's who is seen in our clinic for a past medical history of: 1. Coronary artery disease. 2. Paroxysmal atrial fibrillation. 3. Hypertension. 4. Hyperlipidemia. 5. Obesity. 6. Sleep apnea. Juancarlos has a history of coronary artery disease and underwent bypass grafting in 1994. In 2004, hedid require angioplasty and drug eluting stent placement to his right coronary artery and ramus. Hehas been free from any anginal symptoms. He has a remote history of paroxysmal atrial fibrillation and has remained on beta-blockade and Coumadin therapy for CVA prophylaxis. He has a longstanding history of tobacco abuse. Fortunately, he quit in 2007. However over the last couple of years, he has gained 20 pounds. He has treated sleep apnea. He saw Dr. Hagan in follow up and complained of some shortness of breath and fatigue. He set him up for a Holter monitor, PFT testing, CBC, TSH, and a stress test. He returns today for reassessment and review of these test results. Juancarlos comes in with his today. He tells me that he is doing well. He tends to get more shortof breath with some chest heaviness if he exercises towards the end of the day. He also feels drowsy and wants to take a nap in the afternoon. He has no resting chest discomfort. He has no significant exertional chest pain or neck, arm, or jaw pain. He has no shortness of breath at rest. His symptoms have not changed for the month. He denies any palpitations, lightheadedness, dizziness, or near syncope. He also denies orthopnea, paroxysmal nocturnal dyspnea, or peripheral edema. He does tell methat he uses his CPAP every night. However, he has not had this looked at in the last five to six years. His blood pressure today was 110/60. Heart rate was 78 beats per minute. His lungs were clear. There was no evidence of any jugular venous distention or peripheral edema. I reviewed his Holter monitor with him. This shows a principle rhythm of sinus rhythm with first degree AV block. Average heart rate was 74 beats per minute. Minimum was 43. Maximum was 101. He was noted to have 440 premature ventricular contractions that were mainly isolated. He had very few premature atrial contractions. No evidence of any atrial fibrillation. I reviewed that his TSH and CBC levels were normal. His pulmonary function testing did reveal mild COPD with a slight decrease in gas transfer and evidence of hyperinflation. I also reviewed his stress test with him. This was probably normal showing no evidence of significant ischemia with a preserved LV function. Further review of systems and physical exam are as noted below. PAST HISTORY Past Medical Illnesses: hypertension, osteoarthritis, [...] ischemia, 09/2010 no significant change since 2008 FAMILY HISTORY: Father - Age 89, hyperlipemia [...] lives with ; REVIEW OF SYSTEMS GENERAL weight gain, 2 pounds INTEGUMENTARY denies any change in hair or nails, rashes, or skin lesions. EYES wears eye glasses/contact lenses EARS, NOSE, THROAT, MOUTH partial hearing loss, hearing aide(s) RESPIRATORY sleep apnea, uses cpap, same, dyspnea with exertion, steps CARDIOVASCULAR dizziness, occ ABDOMINAL denies change in bowel habits, dyspepsia, ulcer disease, hematochezia or melena. GENITOURINARY-MALE positive for nocturia MUSCULOSKELETAL positive for history of osteoarthritis, positive for joint stiffness, back NEUROLOGICAL denies any history of recurrent headaches, strokes, TIA, or seizure disorder., moves all extremities PSYCHIATRIC denies any history of depression, substance abuse or change in cognitive functions. ENDOCRINE fatigue HEMATOLOGICAL/IMMUNOLOGIC denies any food allergies, seasonal allergies, bleeding disorders or lymphadenopathy. PHYSICAL EXAMINATION VITAL SIGNS: Blood Pressure: 110/60 Pulse- 78.00/min. Weight- 249.00 lbs. Height- 73.00 Temperature- .00 CONSTITUTIONAL cooperative, alert and oriented,well developed, well [...] time, person and place. MEDICATIONS UPDATED/STARTED TODAY: IMPRESSION/PLAN: 1. Coronary artery disease with a history of bypass grafting in 1994 and stenting of the right coronary artery and ramus branch in 2004. He is free from any chest discomfort. He recently underwent a stress test due to dyspnea on exertion. This showed no evidence of significant ischemia with a preserved LV function. He remains on beta-blockade, ARB therapy, and an aspirin. 2. Paroxysmal atrial fibrillation. Recent Holter monitor showed no evidence of any atrial fibrillation. He appears to be in regular rhythm today. He denies any recent palpitations. He remains on Coumadin for CVA prophylaxis.3. Shortness of breath and dyspnea on exertion. PFT testing does reveal evidence of mild COPD. His stress test was negative. There was no evidence of anemia, hypothyroidism, or dysrhythmias on the Holter monitor. I have asked him to talk with Dr. Caballero about further assessment or perhaps Dr. Orr as he has seen her before. I would also like to have his CPAP device reanalyzed. At this time, wewould like for him to undergo an echocardiogram to assess for right sided heart pressures and any structural abnormalities. I will review this with him over the phone. 4. Hypertension. His blood pressure is controlled. 5. Hyperlipidemia. He is on simvastatin, which is being managed through his primary medical doctor.Clearly, his LDL goal is less than 70. Thank you for allowing me to participate in this patient's care. We will have him return next year to see Dr. Hagan. He is to notify our clinic with any chest discomfort, increased shortness of breath, lightheadedness, dizziness, or other concerns that he may have during the interim. TODAYS ORDERS 1. 2D, color flow, doppler 1 Day Mercy Bernard N.P. documented in this encounter Plan of Treatment Not on file documented as of this encounter Visit Diagnoses Not on filedocumented in this encounter Care Teams Switchgear Repairer Relationship Specialty Start Date End Date Jaylin Caballero MD PCP - General Internal Medicine 11/19/13 10/13/15 Confirmed, No Pcp PCP - General 10/14/15 10/25/15 Sarwat Grossman MD [address] [place] [address] PCP - General Internal Medicine-Hematology & Oncology 10/26/15 12/06/21 Sarwat Grossman MD [address] [place] [address] PCP - Assigned PCP 10/14/17 04/30/18 Carlos Godinez MD [facility] [address] [place] [address] PCP - General Family Medicine 12/07/21 Sarwat Grossman MD [address] [place] [address] Assigned PCP 10/14/17 10/11/19 Sushma Mejia DO [address] [place] [address] Assigned PCP 10/12/19 10/18/19 Sarwat Grossman MD [address] [place] [address] Assigned PCP 10/19/19 06/26/20 Sushma Mejia DO [address] [place] [address] Assigned PCP 06/27/20 02/03/22 Atul Hagan MD [address] [place] [address] Assigned Heart and Vascular Provider 11/14/20 03/21/23 Emma Burnham APRN WALL MAN [address] [place] [address] Assigned PCP 02/04/22 04/21/22 Sarwat Grossman MD [address] [place] [address] Assigned PCP 04/22/22 11/03/22 Emma Burnham APRN WALL MAN [address] [place] [address] Assigned PCP 11/04/22 Ioana Higgins PA-C [address] [address] Assigned Heart and Vascular Provider 03/22/23 documented as of this encounter
--- OUTSIDE RECORDS SUMMARY | 2023-09-04 08:06 | XMS_ITS | Encounter Summary ---
Author Organization [facility] Address [address] [place] [address] Care Team Providers Care Exhibits Coordinator Name Role Phone Sarwat Grossman MD Primary Care Provider [phone] Sushma Mejia DO Unavailable Atul Hagan MD Unavailable [phone] Carlos Godinez MD Primary Care Provider Emma Burnham APRN INCIDENT RESPONSE ANALYST Unavailable [phone] Sarwat Grossman MD Unavailable [phone] Emma Burnham APRN INCIDENT RESPONSE ANALYST Unavailable Ioana Higgins PA-C Unavailable [phone] Reason for Visit * Reason Comments Medication Refill Encounter Details Date Type Department Care Team (Late st Contact Info) Description 11/12/2020 Refill [facility] [address] [place] [address] Sarwat Grossman MD [address] [place] [address] Medication Refill Social History Tobacco Use Types Packs/Day Years [...] Family Three times a week 10/09/2018 Attends [employer] More than 4 times per year [...] Answer Date Recorded PHQ-2 Score 0 01/06/2020 [facility] of Occupat ional Health - Occupational Stress [...] not to disclose 2020 8:52 AM CDT COVID-19 Exposure Response Date Recorded In the last month, have you been in contact with someone who was confirmed or suspected to have Coronavirus / COVID-19? No / Unsure 11/10/2020 9:36 AM CDT documented as of this encounter Miscellaneous Notes * Telephone Encounter - Rome Ambrosio RN - 11/16/2020 10:06 AM CDT [facility]cription [facility] Refill Protocol. documented in this encounter Plan of Treatment Not on file documented as of this encounter Visit Diagnoses Diagnosis Essential hypertension with goal blood pressure less than 140/90 Coronary artery disease involving [place] coronary artery of [place] heart without angina pectoris documented in this encounter Care Teams Exhibits Coordinator Relationship Specialty Start Date End Date Sarwat Grossman MD [address] [facility] [address] [place] [address] PCP - General Internal Medicine-Hematology & Oncology 8/30/16 10/11/22 Carlos Godinez MD [facility] [address] [place] [address] PCP - General Family Medicine 12/07/21 Sushma Mejia DO [address] [place] [address] Assigned PCP 06/27/20 02/03/22 Atul Hagan MD [address] [place] [address] Assigned Heart and Vascular Provider 11/14/20 03/21/23 Emma Burnham APRN INCIDENT RESPONSE ANALYST [address] [place] [address] Assigned PCP 02/04/22 04/21/22 Sarwat Grossman MD [address] [address] Assigned PCP 04/22/22 11/03/22 Emma Burnham APRN INCIDENT RESPONSE ANALYST [address] [place] [address] Assigned PCP 11/04/22 Ioana Higgins PA-C [address] [place] [address] Assigned Heart and Vascular Provider 03/22/23 documented as of this encounter
--- OUTSIDE RECORDS SUMMARY | 2023-09-04 08:06 | XMS_ITS | Encounter Summary ---
Author Organization [facility] Address [address] [place] [address] Care Team Providers Care Personal Lines Insurance Agent Name Role Phone Sarwat Grossman MD Primary Care Provider [phone] Sushma Mejia DO Unavailable [phone] Atul Hagan MD Unavailable [phone] Carlos Godinez MD Primary Care Provider Emma Burnham APRN SENIOR ESTIMATOR Unavailable [phone] Sarwat Grossman MD Unavailable [phone] Emma Burnham APRN SENIOR ESTIMATOR Unavailable Ioana Higgins PA-C Unavailable [phone] Reason for Visit * Reason Comments Medication Refill Encounter Details Date Type Department Care Team (Late st Contact Info) Description 10/24/2020 Refill [facility] [address] [place] [address] Sarwat Grossman MD [address] [place] [address] Medication Refill Social History Tobacco [...] Answer Date Recorded PHQ-2 Score 0 01/06/2020 [facility] [place] of Occupat ional Health - Occupational Stress [...] have Coronavirus / COVID-19? No / Unsure 09/30/2020 8:22 AM CDT documented as of this encounter Miscellaneous Notes * Telephone Encounter - Claire Hobson RN - 10/27/2020 9:38 AM CDT Routing refill request to provider for review/approval because: Labs not current: Claire Hobson RN, BSN documented in this encounter Plan of Treatment Not on file documented as of this encounter Visit Diagnoses Diagnosis Paroxysmal atrial fibrillation (H) Atrial fibrillation documented in this encounter Care Teams Personal Lines Insurance Agent Relationship Specialty Start Date End Date Sarwat Grossman MD [address] [address] PCP - General Internal Medicine-Hematology & Oncology 10/26/15 12/06/21 Carlos Godinez MD [facility] [address] [place] [address] PCP - General Family Medicine 12/07/21 Sushma Mejia DO [address] [place] [address] Assigned PCP 06/27/20 02/03/22 Atul Hagan MD [address] [place] [address] Assigned Heart and Vascular Provider 11/14/20 03/21/23 Emma Burnham APRN SENIOR ESTIMATOR [address] [place] [address] Assigned PCP 02/04/22 04/21/22 Sarwat Grossman MD [address] [address] Assigned PCP 04/22/22 11/03/22 Emma Burnham APRN SENIOR ESTIMATOR [address] [place] [address] Assigned PCP 11/04/22 Ioana Higgins PA-C [address] [place] [address] Assigned Heart and Vascular Provider 03/22/23 documented as of this encounter
--- OUTSIDE RECORDS SUMMARY | 2023-09-04 08:06 | XMS_ITS | Encounter Summary ---
Author Organization [facility] Address [address] [place] [address] Care Team Providers Care Predatory Animal Exterminator Name Role Phone Atlu Hagan MD Unavailable Carlos Godinez MD Primary Care Provider Emma Burnham APRN MONONITROTOLUENE OPERATOR Unavailable [phone] Sarwat Grossman MD Unavailable [phone] Emma Burnham APRN MONONITROTOLUENE OPERATOR Unavailable [phone] Ioana Higgins PA-C Unavailable [phone] Reason for Visit * Reason Comments Medication Refill Encounter Details Date Type Department Care Team (Late st Contact Info) Description 03/07/2022 Refill [facility] [address] [place] [address] Sarwat Grossman MD [address] [place] [address] Medication Refill Social History Tobacco [...] Family Three times a week 10/09/2018 Attends Scientologist Services More than 4 times per year [...] Answer Date Recorded PHQ-2 Score 0 01/06/2020 [facility] [place] of Occupat ional Health - Occupational Stress [...] encounter Miscellaneous Notes * Telephone Encounter - Alice Simon RN - 03/08/2022 3:20 PM CST Pending Prescriptions: Disp Refills ELIQUIS ANTICOAGULANT 5 MG tablet [Pharmac*180 ta*3 Sig: TAKE 1 TABLET TWICE A DAY Routing refill request to provider for review/approval because: Needs provider review O OPERATOR documented in this encounter Plan of Treatment Not on file documented as of this encounter Visit Diagnoses Diagnosis Paroxysmal atrial fibrillation (H) Atrial fibrillation documented in this encounter Care Teams Predatory Animal Exterminator Relationship Specialty Start Date End Date Carlos Godinez MD [facility] [address] [place] [address] PCP - General Family Medicine 12/07/21 Atul Hagan MD [address] [place] [address] Assigned Heart and Vascular Provider 11/14/20 03/21/23 Emma Burnham APRN MONONITROTOLUENE OPERATOR [address] [place] [address] Assigned PCP 02/04/22 04/21/22 Sarwat Grossman MD [address] [place] [address] Assigned PCP 04/22/22 11/03/22 Emma Burnham APRN MONONITROTOLUENE OPERATOR [address] [place] [address] Assigned PCP 11/04/22 Ioana Higgins PA-C [address] [place] [address] Assigned Heart and Vascular Provider 03/22/23 documented as of this encounter
--- OUTSIDE RECORDS SUMMARY | 2023-09-04 08:06 | XMS_ITS | Encounter Summary ---
Author Organization [facility] Address [address] [facility] [place] [address] Care Team Providers Care Oil Burner Technician Name Role Phone Carlos Godinez MD Primary Care Provider [phone] Emma Burnham APRN METAL FLOORING INSTALLER Unavailable + [phone] Ioana Higgins PA-C Unavailable [phone] Reason for Referral * Consultation (Routine: Next available opening) - Pending Review Specialty Diagnoses / Procedures Referred By Moe marquez Referred To Contact Cardiovascular Disease Diagnoses Paroxysmal atrial fibrillation (H) Kel Abraham MD [address] [facility] [address] [place] [address] Referral ID Status Reason Start Date Expiration Date V isits Requested Visits Authorized [id number] Pending Review 06/13/2023 06/12/2024 1 1 Question Answer Follow-up with: Self Scheduling Instructions: [employer] [facility] will call you to coordinate your care as prescribed by your provider. If you have concerns about scheduling, please call [phone]. Comments [employer] [facility] will call you to coordinate your care as prescribed by your provider. If you have concerns about scheduling, please call [phone]. * Consultation (Routine: Next available opening) - Pending Review Specialty Diagnoses / Procedures Referred By Contac t Referred To Contact Cardiovascular Disease Diagnoses Paroxysmal atrial fibrillation (H) Kel Abraham MD [address] [place] [address] Referral ID Status Reason Start Date Expiration Date V isits Requested Visits Authorized [id number] Pending Review 06/13/2023 06/12/2024 1 1 Question Answer Follow-up with: [facility] Scheduling Instructions: [facility] will call you to coordinate your care as prescribed by your provider. If you have concerns about scheduling, please call [phone]. Comments [facility] will call you to coordinate your care as prescribed by your provider. If you have concerns about scheduling, please call [phone]. Reason for Visit * Reason Comments Atrial Fib * Consultation (Routine: Next available opening) - Pending Review Specialty Diagnoses / Procedures Referred By Contac t Referred To Contact Cardiovascular Disease Diagnoses Paroxysmal atrial fibrillation (H) Kel Abraham MD [address] [place] [address] Referral ID Status Reason Start Date Expiration Date V isits Requested Visits Authorized [id number] Pending Review 12/20/2022 12/20/2023 1 1 Encounter Details Date Type Department Care Team (Late st Contact Info) Description 06/13/2023 12:45 PM CDT Office Visit [facility] [place] [id number] [place] [phone] Kel Abraham MD [address] [place] [address] Essential hypertension with goal blood pressure less than 140/90 (Primary Dx); Paroxysmal atrial fibrillation (H); Hyperlipidemia LDL goal <100; Coronary artery disease involving ogl[place] sioux coronary artery of ogl[place] sioux heart without angina pectoris; S/P CABG (coronary artery bypass graft); HERMELINDA (obstructive sleep apnea); Bradycardia Social History Tobacco Use Types Packs/Day Years [...] Family Three times a week 10/09/2018 Attends Jewish Services More than 4 times per year [...] Answer Date Recorded PHQ-2 Score 0 06/13/2023 [facility] [place] of Occupat ional Health - Occupational Stress [...] AM CDT documented as of this encounter Last Filed Vital Signs Vital Sign Reading Time Taken Comments Blood Pressure 118/62 06/13/2023 12:47 PM CDT Pulse 50 06/13/2023 12:47 PM CDT Temperature - - Respiratory Rate - - Oxygen Saturation 98% 06/13/2023 12:47 PM CDT Inhaled Oxygen Concentration - - Weight 99.3 kg (219 lb) 06/13/2023 12:47 PM CDT Height 177.2 cm (5' 9.75) 06/13/2023 12:47 PM C DT Body Mass Index 31.65 06/13/2023 12:47 PM CDT documented in this encounter Patient Instructions * Patient Instructions* Tabitha Malin LPN - 06/13/2023 12:45 PM CDT It was a pleasure seeing you today and thank you for allowing me to be a part of your health care team. Should you have any questions regarding your visit or future needs please feel free to reach out to my care team for assistance. Thank you, Dr. Kel Abraham Nursing: Scheduling: documented in this encounter Progress Notes * Kel Abraham MD - 06/13/2023 12:45 PM CDT Images from the original note were not included. General Cardiology Clinic Progress Note Juancarlos Dexter Date of : 1940 Age: [age] year old Reason for visit: Chronic atrial fibrillation, coronary artery disease History of presenting illness: I had the opportunity to see Juancarlos Dexter at [facility] today for reevaluation of coronary artery disease and chronic atrial fibrillation. He underwent coronary bypass surgery back in 1994 and stenting of the right coronary artery and ramus in 2004. He has not had recurrent coronary artery disease problems since then. His cardiac risk factors including hypertension and dyslipidemia which were treated with medical therapy. He had paroxysmal atrial fibrillation for several years before recently developing chronic atrial fibrillation. He had Zio patch monitor performed in August 2022 which demonstrated controlled atrial fibrillation with an average heart rate of 59 bpm with a couple of slow heart rate episodes. He had 2 pauses greater than 3 seconds. Those were 3.0 and 3.2 seconds, and asymptomatic. They occurred at 4:30 in the afternoon and 10:30 at night. He is not on medication for rate control. He is on Eliquis for stroke prevention. I asked him to return at this time to discuss whether he is having any concerning symptoms of slow heart rates. He again denies symptoms of lightheadedness, near-syncope, or syncope. He walks slowly with a cane but denies having shortness of breath symptoms. He has no chest pain. He does not feel palpitations. He gets a little lightheaded when he stands up too quickly which has continued even after stopping his losartan at last visit. On examination here today his blood pressure is 118/62, heart rate 50, weight 119 pounds. His lungsare clear. Heart rhythm is irregular without murmur. He has no carotid bruits. Assessment and Plan: ASSESSMENT: Mr. Inocencio Dexter is an 83-year-old gentleman with coronary artery disease and history of bypass surgery back in 1994 and two-vessel stenting in 2004. He is not having any concerning ischemic heart disease symptoms. His risk factors include hypertension and dyslipidemia which are well-controlled withmedical therapy. He also has chronic atrial fibrillation. His heart rates are slow and he has occasional brief pauses even without rate slowing medications. Fortunately he seems to be asymptomatic without any episodes of lightheadedness or syncope. I see no indication for implantation of a pacemaker at this time. I suggest he cut back his furosemide and use it as needed. He is still taking about 4 days a week. He is also on Eliquis and atorvastatin but no other cardiac medications. I will plan to have him follow-up again with us in 6 months to continue to monitor him for symptomsof lightheadedness and syncope that might be associated with bradycardia or pauses. Additional monitoring may be appropriate if he has any suggestive symptoms of lightheadedness. I suspect he may eventually department pacemaker. Kel Abraham MD Orders this Visit: Orders Placed This Encounter Procedures Basic metabolic panel Lipid Profile ALT Follow-Up with Cardiology ARUNA Follow-Up with Cardiology No orders of the defined types were placed in this encounter. There are no discontinued medications. Today's clinic visit entailed: 30 minutes spent by me on the date of the encounter doing chart review, history and exam, documentation and further activities per the note Provider Link to [facility] Help Grid The level of medical decision making during this visit was of high complexity. Review of Systems: Review of Systems: Skin: Eyes: ENT: Respiratory: Positive for shortness of breath;dyspnea on exertion;sleep apnea;CPAP Cardiovascular: edema;Positive for;fatigue;lightheadedness;dizziness Gastroenterology: Genitourinary: Musculoskeletal: Neurologic: Psychiatric: Heme/Lymph/Imm: Endocrine: Positive for thyroid disorder Physical Exam: Vitals: BP 118/62 Pulse 50 Ht 1.772 m (5' 9.75) Wt 99.3 kg (219 lb) SpO2 98% BMI 31.65 kg/m?? Constitutional: Well nourished and in no apparent distress. Eyes: Pupils equal, round. Sclerae anicteric. HEENT: Normocephalic, atraumatic. Neck: Supple. JVD Respiratory: Breathing non-labored. Lungs clear to auscultation bilaterally. No crackles, wheezes, rhonchi, or rales. Cardiovascular: Regular rate and rhythm, normal S1 and S2. No murmur, rub, or gallop. Skin: Warm, dry. No rashes, cyanosis, or xanthelasma. Extremities: No edema. Neurologic: No gross motor deficits. Alert, awake, and oriented to person, place and time. Psychiatric: Affect appropriate. Medications: Current Outpatient Medications Medication Sig Dispense Refill alfuzosin ER (UROXATRAL) 10 MG 24 hr tablet Take 10 mg by mouth daily allopurinol (ZYLOPRIM) 300 MG tablet TAKE 1 TABLET DAILY 90 tablet 0 apixaban ANTICOAGULANT (ELIQUIS ANTICOAGULANT) 5 MG tablet Take 1 tablet (5 mg) by mouth 2 times daily 180 tablet 3 atorvastatin (LIPITOR) 40 MG tablet Take 1 tablet (40 mg) by mouth daily 90 tablet 3 betamethasone dipropionate (DIPROSONE) 0.05 % external cream Apply topically 2 times daily furosemide (LASIX) 20 MG tablet Take 1 tablet (20 mg) by mouth daily as needed (lower leg swelling)90 tablet 3 hydrOXYzine (ATARAX) 25 MG tablet Take 1 tablet (25 mg) by mouth 3 times daily as needed for anxiety or other (stomach upset) 30 tablet 11 levothyroxine (SYNTHROID/LEVOTHROID) 175 MCG tablet TAKE 1 TABLET DAILY 90 tablet 0 nitroGLYcerin (NITROSTAT) 0.[address] 1 tablet (0.4 mg) under the tongue every 5minutes as needed for chest pain if still having pain after 3 doses (15 min) call 911 25 tablet 3 azaTHIOprine (IMURAN) 50 MG tablet Take 50 mg by mouth daily (Patient not taking: Reported on 06/13/2023) Family History Problem Relation Age of Onset Hypertension Father age 89 Hypertension Mother age 86, possible cancer Dementia Mother Diabetes No family hx of Social History Socioeconomic History Marital status: Spouse name: Not on file Number of children: 2 Years of education: Not on file Highest education level: Some college, no degree Occupational History 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 No Service Not Asked Blood Transfusions Not Asked Caffeine Concern Not Asked Occupational Exposure Not Asked Hobby Hazards Not Asked Sleep Concern Not Asked Stress Concern Not Asked Weight Concern Not Asked Special Diet No Back Care Not Asked Exercise No Bike Helmet Not Asked Seat Belt Yes Self-Exams Not Asked Social History Narrative , two children. One in [facility], one in [place], [place]. Five grandchildren. Walks with cane, no regular exercise. Social Determinants of Health Financial Resource Strain: Not on File (06/19/2020) Received from [employer] Financial Resource Strain Financial Resource Strain: 0 Food Insecurity: Not on File (06/19/2020) Received from [employer] Food Insecurity Food: 0 Transportation Needs: Not on File (06/19/2020) Received from [employer] Transportation Needs Transportation: 0 Physical Activity: Not on File (06/19/2020) Received from [employer] Physical Activity Physical Activity: 0 Stress: Not on File (06/19/2020) Received from [employer] Stress Stress: 0 Social Connections: Not on File (06/19/2020) Received from [employer] Social Connections Social Connections and Isolation: 0 Interpersonal Safety: Not At Risk (10/09/2018) Humiliation, Afraid, Rape, and Kick questionnaire Fear of Current or Ex-Partner: No Emotionally Abused: No Physically Abused: No Sexually Abused: No Housing Stability: Not on File (06/19/2020) Received from [employer] Housing Stability Housin Past Medical History: Past Medical History: Diagnosis Date Arrhythmia Atrial fib Arthritis 2009 BPH (benign prostatic hyperplasia) CAD (coronary artery disease) COPD (chronic obstructive pulmonary disease) (H) Hearing loss, sensorineural History of blood transfusion HTN (hypertension) Hyperlipidemia LDL goal <100 09/29/2014 Hypothyroid Myocardial infarction (H) HERMELINDA (obstructive sleep apnea) uses CPAP S/P CABG x 3 Stented coronary artery 1994 CABG & stents x2 in 2004 Past Surgical History: Past Surgical History: Procedure Laterality Date CARDIAC SURGERY 2 stents CARDIAC SURGERY CABG in 1994 COLONOSCOPY COLONOSCOPY N/A 06/13/2016 2 adenomatous polyps removed. Procedure: COMBINED COLONOSCOPY, SINGLE OR MULTIPLE BIOPSY/POLYPECTOMY BY BIOPSY; Colonoscopy Polypectomy; Surgeon: Michi Reed MD; Location: OR ENDOSCOPIC RELEASE CARPAL TUNNEL Left 06/23/2015 Procedure: ENDOSCOPIC RELEASE CARPAL TUNNEL; Surgeon: Alice Damon MD; Location: [facility] ENDOSCOPIC RELEASE CARPAL TUNNEL Right 07/07/2015 Procedure: ENDOSCOPIC RELEASE CARPAL TUNNEL; Surgeon: Alice Damon MD; Location: [facility] ENT SURGERY 2017 POLYPS REMOVED FOR NOSE ROOF ORTHOPEDIC SURGERY total knee arthroplasty, right in 2005 asnd left in 2006 Allergies: Sal inhibitors Data: All laboratory data reviewed: Recent Labs Lab Test 05/22/23 0802 07/27/22 1024 12/05/21 0755 11/02/20 0945 10/27/19 0820 10/09/18 0803 01/04/18 0834 10/02/17 0917 LDL -- -- 12 31 23 38 < > 29 HDL -- -- 37* 39* 32* 30* < > 40 NHDL -- -- 33 47 49 53 < > 45 CHOL -- -- 70 86 81 83 < > 85 TRIG 75 -- 103 82 129 77 < > 78 TSH -- -- -- -- 1.36 1.51 -- 1.01 NTBNP -- 1,850* -- -- -- -- -- -- < > = values in this interval not displayed. Lab Results Component Value Date WBC 9.8 01/04/2020 RBC 4.01 (L) 01/04/2020 HGB 13.6 11/02/2020 HGB 13.3 01/04/2020 HCT 40.8 01/04/2020 MCV 102 (H) 01/04/2020 MCH 33.2 (H) 01/04/2020 MCHC 32.6 01/04/2020 RDW 14.1 01/04/2020 PLT 174 01/04/2020 Lab Results Component Value Date NA 140 10/31/2022 NA 140 01/04/2020 POTASSIUM 3.9 10/31/2022 POTASSIUM 4.0 12/05/2021 POTASSIUM 3.8 01/04/2020 CHLORIDE 105 05/22/2023 CHLORIDE 108 01/04/2020 CO2 26 10/31/2022 CO2 27 12/05/2021 CO2 23 01/04/2020 ANIONGAP 9 10/31/2022 ANIONGAP 4 12/05/2021 ANIONGAP 9 01/04/2020 GLC 103 (H) 10/31/2022 GLC 105 (H) 12/05/2021 GLC 108 (H) 01/04/2020 BUN 19.4 10/31/2022 BUN 15 12/05/2021 BUN 23 01/04/2020 CR 0.91 10/31/2022 CR 0.81 01/04/2020 GFRESTIMATED 84 10/31/2022 GFRESTIMATED 84 01/04/2020 GFRESTBLACK >90 01/04/2020 ART 9.2 10/31/2022 ART 8.4 (L) 01/04/2020 Lab Results Component Value Date AST 29 10/27/2019 ALT 31 12/12/2022 ALT 48 10/27/2019 Lab Results Component Value Date A1C 6.0 (H) 10/27/2019 Lab Results Component Value Date INR 1.17 (H) 01/04/2020 INR 2.4 (A) 11/13/2016 INR 2.9 (A) 10/02/2016 INR 1.16 (H) 06/13/2016 KEL ABRAHAM MD [facility] Heart Care documented in this encounter Plan of Treatment Scheduled Orders Name Type Priority Associated Diagnoses Orde r Schedule Basic metabolic panel Lab Routine Paroxysmal atrial fibrillation (H) Expected: 06/12/2024 (Approximate), Expires: 06/13/2024 Lipid Profile Lab Routine Hyperlipidemia LDL goal <100 Expected: 06/12/2024 (Approximate), Expires: 06/13/2024 ALT Lab Routine Hyperlipidemia LDL goal <100 Expected: 06/12/2024 (Approximate), Expires: 06/12/2024 Scheduled Referrals Name Type Priority Associated Diagnoses Orde r Schedule Follow-Up with Cardiology ARUNA Referral Routine: Next available opening Paroxysmal atrial fibrillation (H) Expected: 12/13/2023 (Approximate), Expires: 06/12/2024 Follow-Up with Cardiology Referral Routine: Next available opening Paroxysmal atrial fibrillation (H) Expected: 06/12/2024 (Approximate), Expires: 06/12/2024 documented as of this encounter Visit Diagnoses Diagnosis Essential hypertension with goal blood pressure less than 140/90- Primary Paroxysmal atrial fibrillation (H) Atrial fibrillation Hyperlipidemia LDL goal <100 Other and unspecified hyperlipidemia Coronary artery disease involving ogl[place] sioux coronary artery of ogl[place] sioux heart without angina pectoris S/P CABG (coronary artery bypass graft) Postsurgical aortocoronary bypass status HERMELINDA (obstructive sleep apnea) Obstructive sleep apnea (adult) (pediatric) Bradycardia Other specified cardiac dysrhythmias documented in this encounter Care Teams Oil Burner Technician Relationship Specialty Start Date End Date Carlos Godinez MD [facility] [address] [place] [address] PCP - General Family Medicine 12/07/21 Emma Burnham APRN [facility] [address] [place] [address] Assigned PCP 11/04/22 Ioana Higgins PA-C [address] [place] [address] Assigned Heart and Vascular Provider 03/22/23 documented as of this encounter
--- OUTSIDE RECORDS SUMMARY | 2023-09-04 08:06 | XMS_ITS | Encounter Summary ---
Author Organization [facility] Address [address] [place] [address] Care Team Providers Care Meterman Name Role Phone Carlos Godinez MD Primary Care Provider [phone] Emma Burnham APRN SALES COMMUNICATIONS MANAGER Unavailable [phone] Ioana Higgins PA-C Unavailable [phone] Reason for Visit * Reason Onset Date Comments Results 06/04/2023 05/24/23 [place] Cli bill Encounter Details Date Type Department Care Team (Late st Contact Info) Description 06/04/2023 Telephone [facility] [address] [place] [address] [address] [place] [address] None Results (05/24/23 [facility] ) Social History Tobacco Use Types Packs/Day Years [...] Family Three times a week 10/09/2018 Attends Orthodoxy Services More than 4 times per year [...] Answer Date Recorded PHQ-2 Score 0 07/27/2022 [facility] of Occupat ional Health - [...] encounter Miscellaneous Notes * Telephone Encounter - Brock Maloney RN - 06/04/2023 10:50 AM CDT RN called patient's and confirmed for her we can cancel lab apt on 06/05. Patient had labs completed at [facility] on 05/22/23. Available in [facility] for review. * Telephone Encounter - Cinthia Barrera - 06/04/2023 10:39 AM CDT [facility] Call [facility] Phone Message May a detailed message be left on voicemail: yes Reason for Call: Requesting Results Name/type of test: Labs Date of test: 05/24/23 Was test done at a location other than [facility]?: Yes: [facility] Patients would like to know if labs from [place] are ok for up coming appt. [facility]. Please reach out. Thank you Action Taken: Other: cardiology Travel Screening: Not Applicable Thank you! [facility] documented in this encounter Plan of Treatment Not on file documented as of this encounter Visit Diagnoses Not on filedocumented in this encounter Care Teams Meterman Relationship Specialty Start Date End Date Carlos Godinez MD [facility] [address] [place] [address] PCP - General Family Medicine 12/07/21 Emma Burnham APRN CNP [address] [place] [address] Assigned PCP 11/04/22 Ioana Higgins PA-C [address] [place] [address] Assigned Heart and Vascular Provider 03/22/23 documented as of this encounter
--- OUTSIDE RECORDS SUMMARY | 2023-09-04 08:06 | XMS_ITS | Encounter Summary ---
Author Organization [facility] Address [address] [place] [address] Care Team Providers Care Screener And Blender Name Role Phone Sarwat Grossman MD Primary Care Provider [phone] Sarwat Grossman MD Unavailable [phone] Sushma Mejia DO Unavailable [phone] Atul Hagan MD Unavailable [phone] Carlos Godinez MD Primary Care Provider Emma Burnham APRN CREW ATTENDANT Unavailable Sarwat Grossman MD Unavailable [phone] Emma Burnham APRN CREW ATTENDANT Unavailable [phone] Ioana Higgins PA-C Unavailable [phone] Encounter Details Date Type Department Care Team (Late st Contact Info) Description 03/05/2020 [facility] Advice [address] [place] [address] Linda Lemus APRN CREW ATTENDANT NO INFO AVAILABLE 09/18/2022 Social History Tobacco [...] Family Three times a week 10/09/2018 Attends Rastafari Services More than 4 times per year [...] Answer Date Recorded PHQ-2 Score 0 01/06/2020 [facility] of Occupat ional Health - Occupational Stress [...] on filedocumented in this encounter Care Teams Screener And Blender Relationship Specialty Start Date End Date Sarwat Grossman MD [address] [place] [address] PCP - General Internal Medicine-Hematology & Oncology 10/26/15 12/06/21 Carlos Godinez MD [facility] [address] [place] [address] PCP - General Family Medicine 12/07/21 Sarwat Grossman MD [address] [address] Assigned PCP 10/19/19 06/26/20 Sushma Mejia DO [facility] [place] [address] Assigned PCP 06/27/20 02/03/22 Atul Hagan MD [address] [place] [address] Assigned Heart and Vascular Provider 11/14/20 03/21/23 Emma Burnham APRN CREW ATTENDANT [address] [place] [address] Assigned PCP 02/04/22 04/21/22 Sarwat Grossman MD [address] [place] [address] Assigned PCP 04/22/22 11/03/22 Emma Burnham APRN CREW ATTENDANT [address] [place] [address] Assigned PCP 11/04/22 Ioana Higgins PA-C [address] [place] [address] Assigned Heart and Vascular Provider 03/22/23 documented as of this encounter
--- OUTSIDE RECORDS SUMMARY | 2023-09-04 08:06 | XMS_ITS | Encounter Summary ---
Author Organization [facility] Address [address] [place] [address] Care Team Providers Care Pin Drafter Operator Name Role Phone Sarwat Grossman MD Primary Care Provider [phone] Sushma Mejia DO Unavailable Atul Hagan MD Unavailable Carlos Godinez MD Primary Care Provider Emma Burnham APRN CARE TEAM ASSISTANT Unavailable [phone] Sarwat Grossman MD Unavailable [phone] Emma Burnham APRN CARE TEAM ASSISTANT Unavailable Ioana Higgins PA-C Unavailable [phone] Reason for Visit * Reason Comments Medication Refill Encounter Details Date Type Department Care Team (Late st Contact Info) Description 11/24/2020 Refill [facility] [address] [place] [address] Sarwat Grossman MD [address] [place] [address] Medication Refill Social History Tobacco [...] Family Three times a week 10/09/2018 Attends [employer] Services More than 4 times per year [...] Answer Date Recorded PHQ-2 Score 0 01/06/2020 [facility] of Occupat ional Health - Occupational Stress [...] have Coronavirus / COVID-19? No / Unsure 11/24/2020 8:43 AM CDT documented as of this encounter Miscellaneous Notes * Telephone Encounter - Rome Ambrosio RN - 11/25/2020 5:15 PM CDT Prescription approved per [facility] Refill Protocol. documented in this encounter Plan of Treatment Not on file documented as of this encounter Visit Diagnoses Diagnosis Hyperlipidemia LDL goal <100 Other and unspecified hyperlipidemia Gout of knee, unspecified cause, unspecified chronicity, unspecified laterality Hypothyroidism due to acquired atrophy of thyroid documented in this encounter Care Teams Pin Drafter Operator Relationship Specialty Start Date End Date Sarwat Grossman MD [address] [address] PCP - General Internal Medicine-Hematology & Oncology 10/26/15 12/06/21 Carlos Godinez MD [facility] [address] [place] [address] PCP - General Family Medicine 12/07/21 Sushma Mejia DO [address] [place] [address] Assigned PCP 06/27/20 02/03/22 Atul Hagan MD [address] [place] [address] Assigned Heart and Vascular Provider 11/14/20 03/21/23 Emma Burnham APRN CARE TEAM ASSISTANT [address] [place] [address] Assigned PCP 02/04/22 04/21/22 Sarwat Grossman MD [address] [address] Assigned PCP 04/22/22 11/03/22 Emma Burnham APRN CARE TEAM ASSISTANT [address] [place] [address] Assigned PCP 11/04/22 Ioana Higgins PA-C [address] [place] [address] Assigned Heart and Vascular Provider 03/22/23 documented as of this encounter
--- OUTSIDE RECORDS SUMMARY | 2023-09-04 08:06 | XMS_ITS | Encounter Summary ---
Author Organization [facility] Address [address] [place] [address] Care Team Providers Care Experimental Box Tester Name Role Phone Rom Caballero MD Primary Care Provider [phone] Confirmed, No Pcp Primary Care Provider Unavaila ble Sarwat Grossman MD Primary Care Provider [phone] Sarwat Grossman MD Unavailable [phone] Sarwat Grossman MD Unavailable [phone] Sushma Mejia DO Unavailable [phone] Sarwat Grossman MD Unavailable [phone] Sushma Mejia DO Unavailable [phone] Atul Hagan MD Unavailable [phone] Carlos Godinez MD Primary Care Provider [phone] Emma Burnham APRN FOUNTAIN ROLLER ASSEMBLER Unavailable + [phone] Sarwat Grossman MD Unavailable [phone] Emma Burnham APRN FOUNTAIN ROLLER ASSEMBLER Unavailable + [phone] Ioana Higgins PA-C Unavailable [phone] Encounter Details Date Type Department Care Team (Late st Contact Info) Description 10/04/2010 Pulmonary Function [facility] Results Marissa Huff MD [facility] [address] [place] [address] Social History Tobacco Use Types Packs/Day Years Used Date Smoking Tobacco: Never Assessed Sex and Gender Information Value Date Recorded Sex Assigned at Not on file Gender Identity Not on file Sexual Orientation Choose not to disclose 2020 8:52 AM CDT documented as of this encounter Procedure Notes * Marissa Huff MD - 10/05/2010 2:47 PM CDTAssociated Order(s): PULMONARY FUNCTION TEST PROCEDURE FINAL Please see medical chart for graphs and statistics related to this report. REFERRING PHYSICIAN: Mercy Bernard GAS USAGE METER CLERK: demi DIAGNOSIS: shortness of breath RACE: HEIGHT: 73 inches WEIGHT: 245 pounds DYSPNEA: walking less than 100 yards COUGH: no WHEEZE: no TOBACCO PRODUCTS: cigarettes YEARS SMOKED: 50 PACKS PER DAY: 1 YEARS QUIT: 3 MEDICATIONS: POST-TEST COMMENTS: good patient effort and cooperation. The results of this test meet the ATS standards for acceptability and repeatability. INTERPRETATION: mild obstructive defect air trapping hyperinflation slightly decreased gas transfer suggests mild COPD Electronically signed on 10/06/2010 10:00 by MARISSA HUFF MD MT: lsd Name: JUANCARLOS ALAS Account: [id number] : 1940 Procedure Date: 10/04/2010 Document: [id number] cc: Rom Hagan MD, [facility]AMOND SIZER AND GRADER documented in this encounter Plan of Treatment Not on file documented as of this encounter Procedures Procedure Name Priority Date/Time Associated Diagnosis Comments PFT GENERAL LAB TESTING 10/05/2010 2:47 PM CDT documented in this encounter Results * PULMONARY FUNCTION TEST PROCEDURE (10/05/2010 2:47 PM CDT) Narrative Transcriptions Marissa Huff MD - 10/05/2010 2:47 PM CDT FINAL Please see medical chart for graphs and statistics related to this report. REFERRING PHYSICIAN: Mercy Bernard GAS USAGE METER CLERK: demi DIAGNOSIS: shortness of breath RACE: HEIGHT: 73 inches WEIGHT: 245 pounds DYSPNEA: walking less than 100 yards COUGH: no WHEEZE: no TOBACCO PRODUCTS: cigarettes YEARS SMOKED: 50 PACKS PER DAY: 1 YEARS QUIT: 3 MEDICATIONS: POST-TEST COMMENTS: good patient effort and cooperation. The results ofthis test meet the ATS standards for acceptability and repeatability. INTERPRETATION: mild obstructive defect air trapping hyperinflation slightly decreased gas transfer suggests mild COPD Electronically signed on 10/06/2010 10:00 by MARISSA HUFF MD MT: denis Name: JUANCARLOS ALAS MRN: [id number] Account: [id number] : 1940 Procedure Date: 10/04/2010 Document: [id number] cc: Rom Hagan MD, [facility]AD[employer] Marissa Huff MD PFT ORDERABLES documented in this encounter Visit Diagnoses Not on filedocumented in this encounter Care Teams Experimental Box Tester Relationship Specialty Start Date End Date Rom Caballero MD PCP - General Internal Medicine 11/19/13 10/13/15 Confirmed, No Pcp PCP - General 10/14/15 10/25/15 Sarwat Grossman MD [address] [employer] [address] [place] [address] PCP - General Internal Medicine-Hematology & Oncology 10/26/15 12/06/21 Sarwat Grossman MD [address] [employer] [address] [place] [address] PCP - Assigned PCP 10/14/17 04/30/18 Carlos Godinez MD [facility] [address], [place] [address] PCP - General Family Medicine 12/07/21 Sarwat Grossman MD [address] [place] [address] Assigned PCP 10/14/17 10/11/19 Sushma Mejia DO [address] [place] [address] Assigned PCP 10/12/19 10/18/19 Sarwat Grossman MD [address] [place] [address] Assigned PCP 10/19/19 06/26/20 Sushma Mejia DO [address] [place] [address] Assigned PCP 06/27/20 02/03/22 Atul Hagan MD [address] [address] Assigned Heart and Vascular Provider 11/14/20 03/21/23 Emma Burnham APRN FOUNTAIN ROLLER ASSEMBLER [address] [place] [address] Assigned PCP 02/04/22 04/21/22 Sarwat Grossman MD [address] [place] [address] Assigned PCP 04/22/22 11/03/22 Emma Burnham APRN FOUNTAIN ROLLER ASSEMBLER [address] [place] [address] Assigned PCP 11/04/22 Ioana Higgins PA-C [address] [place] [address] Assigned Heart and Vascular Provider 03/22/23 documented as of this encounter
--- OUTSIDE RECORDS SUMMARY | 2023-09-04 08:06 | XMS_ITS | Encounter Summary ---
Author Organization [facility] Address [address] [place] [address] Care Team Providers Care Garbage Stoker Name Role Phone Sarwat Grossman MD Primary Care Provider Sushma Mejia DO Unavailable Atul Hagan MD Unavailable [phone] Carlos Godinez MD Primary Care Provider Emma Burnham APRN DEPUTY INSURANCE COMMISSIONER Unavailable [phone] Sarwat Grossman MD Unavailable [phone] Emma Burnham APRN DEPUTY INSURANCE COMMISSIONER Unavailable Ioana Higgins PA-C Unavailable [phone] Reason for Visit * Reason Comments Medication Refill Encounter Details Date Type Department Care Team (Late st Contact Info) Description 01/27/2021 Refill [facility] [address] [place] [address] Sarwat Grossman MD [address] [place] [address] Medication Refill Social History Tobacco [...] Family Three times a week 10/09/2018 Attends [employer] Services More than 4 times per year [...] Answer Date Recorded PHQ-2 Score 0 01/06/2020 [facility] [place] of Occupat ional Health - Occupational Stress [...] encounter Miscellaneous Notes * Telephone Encounter - Carmencita Rodas RN - 01/28/2021 4:49 PM CST Routing refill request to provider for review/approval because: Labs not current: Age out of protocol range Pending Prescriptions: Disp Refills ELIQUIS ANTICOAGULANT 5 MG tablet [Pharmac*180 ta*3 Sig: TAKE 1 TABLET TWICE A DAY NEYMAN PLUMBER documented in this encounter Plan of Treatment Not on file documented as of this encounter Visit Diagnoses Diagnosis Paroxysmal atrial fibrillation (H) Atrial fibrillation documented in this encounter Care Teams Garbage Stoker Relationship Specialty Start Date End Date Sarwat Grossman MD [address] [address] PCP - General Internal Medicine-Hematology & Oncology 10/26/15 12/06/21 Carlos Godinez MD [facility] [address] [place] [address] PCP - General Family Medicine 12/07/21 Sushma Mejia DO [address] [place] [address] Assigned PCP 06/27/20 02/03/22 Atul Hagan MD [address] [place] [address] Assigned Heart and Vascular Provider 11/14/20 03/21/23 Emma Burnham APRN DEPUTY INSURANCE COMMISSIONER [address] [place] [address] Assigned PCP 02/04/22 04/21/22 Sarwat Grossman MD [address] [facility] [address] [place] [address] Assigned PCP 04/22/22 11/03/22 Emma Burnham APRN DEPUTY INSURANCE COMMISSIONER [address] [place] [address] Assigned PCP 11/04/22 Ioana Higgins PA-C [address] [place] [address] Assigned Heart and Vascular Provider 03/22/23 documented as of this encounter
--- OUTSIDE RECORDS SUMMARY | 2023-09-04 08:07 | XMS_ITS | Encounter Summary ---
Author Organization [facility] Address [address] [place] [address] Care Team Providers Care Field Insurance Sales Manager Name Role Phone Jaylin Caballero MD Primary Care Provider Confirmed, No Pcp Primary Care Provider Unavaila ble Sarwat Grossman MD Primary Care Provider [phone] Sarwat Grossman MD Unavailable [phone] Sarwat Grossman MD Unavailable [phone] Sushma Mejia DO Unavailable [phone] Sarwat Grossman MD Unavailable [phone] Sushma Mejia DO Unavailable [phone] Atul Hagan MD Unavailable [phone] Carlos Godinez MD Primary Care Provider [phone] Emma Burnham APRN MARKET SALES MANAGER Unavailable [phone] Sarwat Grossman MD Unavailable [phone] Emma Burnham APRN MARKET SALES MANAGER Unavailable [phone] Ioana Higgins PA-C Unavailable [phone] Encounter Details Date Type Department Care Team (Late st Contact Info) Description 06/12/2005 Office Visit-[facility] [address] [place] [address] Unknown, Doctor, Social History Tobacco Use Types Packs/Day Years Used Date Smoking Tobacco: Never Assessed Sex and Gender Information Value Date Recorded Sex Assigned at Not on file Gender Identity Not on file Sexual Orientation Choose not to disclose 2020 8:52 AM CDT documented as of this encounter Progress Notes * Unknown, DoctorMD - 06/16/2005 9:50 AM CDT Progress Note Created by: Atul Hagan M.D. DATE: 06/12/2005 JUANCARLOS ALAS DATE OF : 1940 AGE: [age] years old Referring Physician: JAYLIN CABALLERO Referring Clinic: [facility] CURRENT DIAGNOSES 1. - Atrial Fibrillation, 427.31 2. - Hypertension, benign, 401.1 ALLERGIES NKA MEDICATIONS (including any changes made today) 1. Metoprolol Tartrate 50 Mg, 1 p.o. b.i.d. 2. Warfarin Sodium 5 mg, 1 p.o. q.d. 3. Synthroid 0.175 mg, 1 p.o. q.d. 4. Lisinopril 5mg, 1 p.o. q.d. 5. Lipitor 10 mg, 1 p.o. qHS 6. Aspirin 81 mg, Dose/instruction 7. Sulindac 200 mg, 1 p.o. q.d. 8. Nitroglycerin 0.4 mg, Dose/instruction CHIEF COMPLAINTS Followup of - Atrial Fibrillation HISTORY OF PRESENT ILLNESS I had the opportunity to see Mr. Juancarlos Alas in Cardiology Clinic today for reevaluation of paroxysmal atrial fibrillation. As you may recall, Mr. Alas is a 65-year-old gentleman who presented to [facility] in early April with atrial fibrillation and some fairly vague symptoms of flu-like symptoms and some discomfort in his chest. He was demonstrated to have atrial fibrillation with an echocardiogram showing normal left ventricular function and no significant valvular disease or pulmonary hypertension. An adenosine Cardiolite study was also performed which was essentially normal, although a very small mid anterior defect was seen which was difficult to exclude from a small area of ischemia. Fortunately Mr. Alas returned to normal sinus rhythm spontaneously. He was started on anticoagulation with Lovenox and Coumadin and a beta gus was initiated with metoprolol 50 mg p.o. b.i.d. Since his discharge from the hospital on 05/05/05 he has felt quite well. He has had no shortness ofbreath, palpitations, lightheadedness, near-syncope, or syncope. He has been active without any chest discomfort whatsoever. An EKG performed today in our office demonstrates normal sinus rhythm and no other concerning abnormalities. On examination his heart rate is 58 beats per minute, blood pressure 118/68, and weight 240 pounds.His heart rate is quite regular. He has no cardiac murmurs. There is no S3 or S4 present. Lungs arequite clear. He has no lower extremity edema or carotid bruits. PAST HISTORY Past Medical Illnesses: hypertension, osteoarthritis Past Cardiac Illnesses: atrial fibrillation, coronary artery disease Cardiology Procedures-Noninvasive: myocardial perfusion imaging (Nuclear) April 2005, echocardiogram April 2005 Left Ventricular Ejection Fraction: EF50% by nuclear study -April 2005 FAMILY HISTORY: Father - Age 89, hyperlipemia and hypertension; Mother - Age 83, hypertension; SOCIAL HISTORY Alcohol Use - drinks rarely; Smoking - used to smoke but quit; Diet - regular diet without modifications and caffeine use-1-2 per day; Exercise - no regular exercise and knee replacement 06/27/05; Occupation - retired; REVIEW OF SYSTEMS GENERAL denies recent weight loss, weight gain, fever or chills or change in exercise tolerance., feels well, no change in exercise tolerance. INTEGUMENTARY denies any change in hair or nails, rashes, or skin lesions. EYES wears eye glasses/contact lenses EARS, NOSE, THROAT, MOUTH denies any hearing loss, epistaxis, hoarseness or difficulty speaking. RESPIRATORY dyspnea with exertion CARDIOVASCULAR negative for palpitations, chest pain, orthopnea, PND, peripheral edema, syncope or claudication. ABDOMINAL denies change in bowel habits, dyspepsia, ulcer disease, hematochezia or melena. GENITOURINARY-MALE positive for nocturia MUSCULOSKELETAL positive for history of osteoarthritis, positive for joint stiffness NEUROLOGICAL denies any history of recurrent headaches, strokes, TIA, or seizure disorder., moves all extremities PSYCHIATRIC denies any history of depression, substance abuse or change in cognitive functions. ENDOCRINE hyperlipidemia, hypothyroidism HEMATOLOGICAL/IMMUNOLOGIC denies any food allergies, seasonal allergies, bleeding disorders or lymphadenopathy. PHYSICAL EXAMINATION VITAL SIGNS: Blood Pressure: 118/68 Sitting, Left arm, large cuff Pulse- 58.00/min. Weight- 240.00 lbs. Height- 73.00 Temperature- .00 CONSTITUTIONAL cooperative, alert and oriented,well developed, well nourished, in no acute distress. SKIN warm and dry to touch, no apparent skin lesions, or masses noted. HEAD normocephalic, atraumatic EYES Pupils equal and round, conjunctivae and lids unremarkable, sclera white, no xanthalasma ENT no pallor or cyanosis, dentition good NECK carotid pulses are full and equal [...] oriented to time, person and place. MEDICATIONS UPDATED TODAY: Metoprolol Tartrate 50 Mg, 1 p.o. b.i.d., #60 IMPRESSIONS/PLAN Mr. Juancarlos Alas is a 65-year-old gentleman with paroxysmal atrial fibrillation, hypertension, anddyslipidemia. He was briefly in atrial fibrillation in early April and started on anticoagulation with Coumadin. He had some vague symptoms with that including some chest discomfort and flu-like sympt oms. Fortunately he has an echocardiogram showing normal left ventricular function and a stress test that did not show any significant areas of myocardial ischemia, although there was a very small suspicious area in the mid anterior wall. Fortunately he has clinically maintained normal sinus rhythm consistently since that time and is feeling quite well today and since his hospital discharge. He is in normal sinus rhythm by EKG. I believe he can safely proceed with orthopedic surgery with only minimal risk of an adverse cardiac event. He does perhaps have some risk for going back into atrial fibrillation and I have discussedthat with him. However, with continuation of beta blockade prior to, during, and after the surgicalprocedure I think that risk can be minimized. However, we would be happy to participate in his careshould his atrial fibrillation return. I have suggested that he can safely discontinue all anticoagulation including Coumadin and aspirin at least five days prior to the surgical procedure with minimal risk of stroke. There has been a sufficient period of time since he has been in atrial fibrillation that he can go off that medication temporarily without any concern as long as he maintains normal rhythm. If he does revert to atrial fibrillation he will need anticoagulation again at that time as long as it is safe from a surgical perspective. I will plan to see him back again in one year and have put in a call to your office to keep you updated regarding his progress. I am awaiting your return call and we will discuss things with you then. Thank you for allowing me to participate in Mr. Alas's care. TODAYS ORDERS 1. Return Visit 1 year Atul Hagan M.D. documented in this encounter Plan of Treatment Not on file documented as of this encounter Visit Diagnoses Not on filedocumented in this encounter Care Teams Field Insurance Sales Manager Relationship Specialty Start Date End Date Jaylin Caballero MD PCP - General Internal Medicine 11/19/13 10/13/15 Confirmed, No Pcp PCP - General 10/14/15 10/25/15 Sarwat Grossman MD [address] [place] [address] PCP - General Internal Medicine-Hematology & Oncology 10/26/15 12/06/21 Sarwat Grossman MD [address] [place] [address] PCP - Assigned PCP 10/14/17 04/30/18 Carlos Godinez MD [facility] [address] [place] [address] PCP - General Family Medicine 12/07/21 Sarwat Grossman MD [address] [place] [address] Assigned PCP 10/14/17 10/11/19 Sushma Mejia DO [address] [place] [address] Assigned PCP 10/12/19 10/18/19 Sarwat Grossman MD [address] [place] [address] Assigned PCP 10/19/19 06/26/20 Sushma Mejia DO [address] [place] [address] Assigned PCP 06/27/20 02/03/22 Atul Hagan MD [address] [place] [address] Assigned Heart and Vascular Provider 11/14/20 03/21/23 Emma Burnham APRN MARKET SALES MANAGER [address] [place] [address] Assigned PCP 02/04/22 04/21/22 Sarwat Grossman MD [address] [place] [address] Assigned PCP 04/22/22 11/03/22 Emma Burnham APRN MARKET SALES MANAGER [address] [place] [address] Assigned PCP 11/04/22 Ioana Higgins PA-C [address] [address] Assigned Heart and Vascular Provider 03/22/23 documented as of this encounter
--- OUTSIDE RECORDS SUMMARY | 2023-09-04 08:07 | XMS_ITS | Encounter Summary ---
Author Organization [facility] Address [address] [place] [address] Care Team Providers Care Plant Anatomist Name Role Phone Jaylin Caballero MD Primary Care Provider Confirmed, No Pcp Primary Care Provider Unavaila ble Sarwat Grossman MD Primary Care Provider [phone] Sarwat Grossman MD Unavailable [phone] Sarwat Grossman MD Unavailable [phone] Sushma Mejia DO Unavailable [phone] Sarwat Grossman MD Unavailable [phone] Sushma Mejia DO Unavailable [phone] Atul Hagan MD Unavailable [phone] Carlos Godinez MD Primary Care Provider [phone] Emma Burnham APRN LOAN MANAGER Unavailable + [phone] Sarwat Grossman MD Unavailable [phone] Emma Burnham APRN LOAN MANAGER Unavailable [phone] Ioana Higgins PA-C Unavailable [phone] Encounter Details Date Type Department Care Team (Late st Contact Info) Description 09/21/2010 Office Visit-[facility] [address] [place] [phone] Atul Hagan MD [address] [place] [address] Social History Tobacco Use Types Packs/Day Years Used Date Smoking Tobacco: Never Assessed Sex and Gender Information Value Date Recorded Sex Assigned at Not on file Gender Identity Not on file Sexual Orientation Choose not to disclose 2020 8:52 AM CDT documented as of this encounter Progress Notes * Atul Hagan MD - 09/29/2010 3:38 PM CDT Progress Note Created by: Atul Hagan M.D. DATE: 09/21/2010 JUANCARLOS ALAS DATE OF : 1940 AGE: [age] years old Referring Physician: JAYLIN CABALLERO Referring Clinic: [facility] INTERNAL MEDICINE CURRENT DIAGNOSES 1. - [...] Tablet, Sublingual, Take as Directed CHIEF COMPLAINTS Cardiac Assessment HISTORY OF PRESENT ILLNESS I had the opportunity to see Mr. Juancarlos Alas in cardiology clinic today for reevaluation of coronary artery disease and discussion of symptoms of recent onset of shortness of breath. As you may recall, Mr. Alas is a 70-year-old gentleman who had bypass surgery in 1994 at [facility] and more recently had angioplasty with drug-coated stents in the right coronary artery and ramus arteriesin May 2004. He believes the symptoms that he had at that time were mostly shortness of breath and not necessarily chest pain symptoms. He also has paroxysmal atrial fibrillation, hypertension and dyslipidemia. His last stress test was in May 2008, which looked normal but was not gated. I have not seen him in the clinic for two years. He has been a smoker and was fortunately able to eventually quit in 2007. I congratulated him again on that today. His concern today is that he is developing shortness of breath and fatigue. His indicates thathe has difficulty keeping up with her on daily walks and he feels quite short of breath at the end of a walk. He is more fatigued throughout the day as well. He is not developing any chest pain, pressure, tightness or discomfort in the left arm, neck, jaw, back, or shoulder. He denies feeling any palpitations but he really has not felt his atrial fibrillation in the past either. He has no light-headedness or syncope. His medications look fairly stable and I see his cholesterol numbers and otherlabs from [address] Caballero's office all looked pretty good. I do not see a CBC but his thyroid function was normal at that time. On examination today, his blood pressure is 120/68mmHg, heart rate 70 and weight 247 pounds. I notice that he has gained 20 pounds since he quit smoking in 2007. His lungs are clear. His heart rhythmis regular but heart tones are distant. I do not hear any significant murmurs or carotid bruits. Hehas no edema. PAST HISTORY Past Medical Illnesses: hypertension, osteoarthritis, obstructive sleep apnea, hypothyroidism, gout Past Cardiac Illnesses: atrial fibrillation, coronary artery disease Surgeries/Procedures - General: Right total knee arthroplasty 06/2005, Left total knee arthroplasty Cardiac and Vascular Surgeries: CABG 1994 Cardiac/Vasc Procedures-Invasive: cardiac cath (left) May 2004 Cardiology Procedures-NonInvasive: myocardial perfusion imaging (Nuclear) April 2005, echocardiogram April 2005, myocardial perfusion (Nuc) May 2008, stress echo May 2004 Cardiac Cath Results: angioplasty with 1 cypher stents to RCA and ramus 05/2004 PMHx Echo Results: 05/01 mild aortic root enlargement, LA enlargement, borderline to mild concentric LVH PMHx Stress Echo Results: 05/31 possible false positive Left Ventricular Ejection Fraction: EF<GT>50% by nuclear study -April 2005 Nuclear Results: 06/04 no ischemia FAMILY HISTORY: Father - Age 89, hyperlipemia [...] ; REVIEW OF SYSTEMS GENERAL weight gain, feels well INTEGUMENTARY denies any change in hair or nails, rashes, or skin lesions. EYES wears eye glasses/contact lenses EARS, NOSE, THROAT, MOUTH partial hearing loss, hearing aide(s) RESPIRATORY sleep apnea, uses cpap, same, dyspnea with exertion, steps CARDIOVASCULAR feeling unsteady at times, denies chest discomfort, denies palpitations, denies edema ABDOMINAL denies change in bowel habits, dyspepsia, [...] lymphadenopathy. PHYSICAL EXAMINATION VITAL SIGNS: Blood Pressure: 120/68Sitting, Left arm, large cuff Pulse- 70.00/min. Weight- 247.00 lbs. Height- 73.00 Temperature- .00 CONSTITUTIONAL cooperative, [...] time, person and place. MEDICATIONS UPDATED/STARTED TODAY: Aspirin 81 Mg Tablet, 1 p.o. daily, 0 Diovan 80 mg Tablet, 1 p.o. daily, #0 Metoprolol Tartrate 25 Mg Tablet, 1 p.o. twice daily, #0 Nitroglycerin 0.4 Mg Tablet, Sublingual, Take as Directed, 0 Synthroid 175 Mcg Tablet, 1 p.o. daily, 0 terazosin 1 mg Capsule, 3 mg daily, #0 Warfarin 5 Mg Tablet, Take as Directed, 0 MEDICATIONS REFILLED/STOPPED TODAY: Metoprolol Tartrate 25 mg Tablet 1 p.o. b.i.d. #180 Directions Changed-No Abbrvs, Lisinopril 10 mg Tablet 1 p.o. qAM #90 Substitution, Warfarin 5 mg Tablet 1 p.o. q.d. 0 Directions Changed-No Abbrvs,Synthroid 175 mcg Tablet 1 p.o. q.d. 0 Directions Changed-No Abbrvs, Aspirin 81 mg Tablet Dose/instruction 0 Directions Changed-No Abbrvs, Nitroglycerin 0.4 mg Tablet and Sublingual Dose/instruction 0 Directions Changed-No Abbrvs IMPRESSIONS/PLAN Mr. Juancarlos Alas is a 70-year-old gentleman with coronary artery disease with a history of previous bypass surgery in 1994, stenting of the right coronary artery and ramus in 2004 and paroxysmal atrial fibrillation. He has a history of smoking quit in 2007, hypertension and dyslipidemia which are well controlled. He is on Coumadin for stroke prevention with atrial fibrillation. I suggested a variety of different possibilities that might be causing his shortness of breath. He could have anemia although he does not look pale. His is concerned about his thyroid function despite the fact that his thyroid test looked normal in February. He could have progressive coronary artery disease with shortness of breath being an anginal equivalent. His atrial fibrillation might bepoorly controlled with exercise or he could have chronotropic incompetence. He also may have significant lung disease as a result of a long history of smoking. Finally, obstructive sleep apnea is another possibility although I did not ask him if he has been tested for this in the past. He may simply be deconditioned and overweight after a 20-pound weight gain from quitting smoking three years ago. I suggested more regular exercise and weight loss but I also thought some evaluation of these issues might be appropriate. I will have him do a stress test, 24-hour Holter monitor, pulmonary functiontests, CBC, TSH and then follow- up with us to discuss those results. If none of those issues seems to be a significant concern for shortness of breath, I would refer him for a sleep study and echocardiogram to consider the possibility of pulmonary hypertension. Hopefully we can continue to reinforce the need for regular exercise and cardiovascular conditioning and weight loss. TODAYS ORDERS 1. Treadmill Nuclear Study 3 days, Patient OFF MedsMD able to convert to pharm stress if pt unable to exercise 2. CBC w/out Diff 3 days 3. TSH 3 days 4. Pulmonary Function Test Schedule at [facility] 5. F/U with Mercy Bernard, MSN, LOAN MANAGER 2-4 weeks 6. Holter Monitor 1 week, 24-Hour 7. F/U with Atul Hagan MD 1 year Atul Hagan M.D. documented in this encounter Plan of Treatment Not on file documented as of this encounter Visit Diagnoses Not on filedocumented in this encounter Care Teams Plant Anatomist Relationship Specialty Start Date End Date Jaylin Caballero MD PCP - General Internal Medicine 11/19/13 10/13/15 Confirmed, No Pcp PCP - General 10/14/15 10/25/15 Sarwat Grossman MD [address] [place] [address] PCP - General Internal Medicine-Hematology & Oncology 10/26/15 12/06/21 Sarwat Grossman MD [address] [place] [address] PCP - Assigned PCP 10/14/17 04/30/18 Carlos Godinez MD [facility] [address] [place] [address] PCP - General Family Medicine 12/07/21 Sarwat Grossman MD [address] [place] [address] Assigned PCP 10/14/17 10/11/19 Sushma Mejia DO [address] [place] [address] Assigned PCP 10/12/19 10/18/19 Sarwat Grossman MD [address] [address] Assigned PCP 10/19/19 06/26/20 Sushma Mejia DO [address] [place] [address] Assigned PCP 06/27/20 02/03/22 Atul Hagan MD [address] [facility] [address] [place] [address] Assigned Heart and Vascular Provider 11/14/20 03/21/23 Emma Burnham APRN LOAN MANAGER [address] [place] [address] Assigned PCP 02/04/22 04/21/22 Sarwat Grossman MD [address] [address] Assigned PCP 04/22/22 11/03/22 Emma Burnham APRN LOAN MANAGER [address] [place] [address] Assigned PCP 11/04/22 Ioana Higgins PA-C [address] [facility] [place] [address] Assigned Heart and Vascular Provider 03/22/23 documented as of this encounter
--- OUTSIDE RECORDS SUMMARY | 2023-09-04 08:07 | XMS_ITS | Data Portability ---
Author Organization [place] [facility] Address [address] [place] [address] Care Team Providers Care [employer] Guidance Counselor Name Role Phone ELIZABETH HUI Primary Care Provider [phone] Assessment Encounter Date Assessment Date Assessment LastModified by Organization Details LastModified Time 04/27/2021 04/27/2021 Of note a total of 45 minutes was spent reviewing records and in discussion with patient, >50 % of which was in coordination and counseling. [email or web address] Not available 04/27/2021 15:58:22 Plan of Treatment Reminders Order Date Submit Date Provider Last Modified By Organization Details Last Modified Time Details Appointments None recorded. Lab urinalysis , dipstick 2021 022 wutz Not available 15:25:59 Referral None recorded. Procedures None recorded. Surgeries None recorded. Imaging None recorded. Medication Orders None recorded. Patient TargetsNo targets recorded. Patient Instructions Encounter Date Encounter Id Patient Instructions Last Modified By Organization Details Last Modified Time 04/27/2021 [id number] 2 urological concerns: 1) Left SRM (small renal mass) on recent CT body imaging. Rec repeat CT in one yr. Covered natural hx of SRM's reviewed in detail with the recognition that observation is preferred as often do NOT amount to any oncological concern 2) symptomatic BPH -has responded nicely to alpha gus therapy. Stay the course. [email or web address] Not available 04/27/2021 15:58:16 Reason for Referral None Reported. Results Created Date Observation Date Name Description Value Unit Range Abnormal Flag LastModifiedBy Organization Detail LastModifiedTime 04/28/1904/27/2021 urina lysis , dipst ick Blood-Status Trace Not Available [facility] [address], [place], [address], 04/27/2021 15:25:07 04/28/19 22 04/27/2021 bladd er scan (PROC ) No observ ation record ed. BARCODE Not Available 04/27/2021 17:44:41 Result Notes None recorded. Procedures Surgical History Date Name Laterality Status Provider Name and Address Organization Details Recorded Time 2 Bladder Scan completed [facility] 04/27/2021 15:28:15 5 Colonoscopy completed [facility] 04/27/2021 15:23:03 Imaging Results Imaging Date Name Status LastModified by Organiz ation Details LastModified Time 04/27/2021 bladder scan (PROC) completed BARCODE Information not available 04/27/2021 17:44:41 Procedure Notes None recorded. Medical Equipment None Reported. Allergies No known drug allergies Medications Name Sig Start Date Stop Date Status Note LastModified by Organization Details LastModified Time atorvastatin 80 mg tablet active Not Available Not Available Not Available donepezil 5 mg tablet active Not Available Not Available No t Available azithromycin 250 mg tablet TAKE 1 TABLET BY MOUTH ONCE DAILY FOR 21 DAYS active Not Available Not Available No t Available azathioprine 50 mg tablet TAKE 1 TABLET BY MOUTH ONCE DAILY active Not Available Not Available No t Available sulfamethoxa zole 800 mg-trimethop rim 160 mg tablet TAKE 1 TABLET BY MOUTH TWICE DAILY active Not Available Not Available No t Available triamcinolon e acetonide 0.1 % topical cream APPLY CREAM EXTERNALLY TWICE DAILY active Not Available Not Available Not Available Synthroid 175 mcg tablet active Not Available Not Available Not Available doxycycline monohydrate 100 mg capsule TAKE 1 CAPSULE BY MOUTH TWICE DAILY active Not Available Not Available No t Available cephalexin 500 mg capsule active Not Available Not Available Not Available losartan 25 mg tablet active Not Available Not Available No t Available nitroglyceri n 0.4 mg sublingual tablet active Not Available Not Available Not Available hydroxyzine HCl 25 mg tablet active Not Available Not Available Not Available allopurinol 300 mg tablet active Not Available Not Available Not Available alfuzosin ER 10 mg tablet,exten ded release 24 hr active Not Available Not Available Not Available aspirin active Not Available Not Avail able Not Available Eliquis 5 mg tablet active Not Available Not Available Not Available Dupixent 300 mg/2 mL subcutaneous syringe active Not Available Not Available Not Available Dupixent 300 mg/2 mL subcutaneous pen injector active Not Available Not Available Not Available Vitals Date Recorded Body height Body mass index (BMI) Body weight Provider Name and Address Organization Details Last Updated DateTime 04/27/2021 185.42 cm 30.3 kg/m2 360429.25 g [facility] Adri[facility] 04/27/2021 15:17:19 Social History Question Answer Notes LastModified by Organizat ion Details LastModified Time Tobacco Smoking Status Never Smoker Kong MARA Torrez [facility] 04/27/2021 15:22:43 What Was The Date Of Your Most Recent Tobacco Screening? 04/27/2021 [email or web address] Information not available 04/27/2021 Sex: Unknown Functional Status None recorded. Mental Status None recorded. Family History Relationship Description Onset Age of this Age Resolved Age Notes Father No current problems or disability Mother No current problems or disability Medical History Condition Response Sexually Transmitted Infection N Diabetes N Other N Bleeding Disorder N High Blood Pressure Y Kidney Stones N High Cholesterol Y GERD/Acid Reflux N Heart Disease Y Cancer N Depression N Lung Disease N Past Encounters Encounter ID Performer Location Encounter Start Date Encounter Closed Date Diagnosis/Indication Diagnosis SNOMED-CT Code [id number] [facility] [address] [id number] 04/27/2021 14:41:04 04/29/2021 16:20:28 Slowing of urinary stream [id number] Benign pro static hyperplasia with outflow obstruction [id number] Renal mass [id number] Health Concerns Section Related Observation LastModified by Organization Detai ls LastModified Time None Recorded Concern Status LastModified by Organization Details LastModified Time None Recorded Advance Directives Directive None Recorded Payers Encounter Date Sequence Insurance Name Policy Number Policy Perea Covered Member ID Perea Member ID Guarantor Name 04/27/2021 1 [place] [employer] Juancarlos Dexter [id number] Juancarlos Dexter 04/27/2021 2 [place] [id number] In Juancarlos Marquez [id number] Juancarlos Dexter Notes Date Note Type Note Provider Name and Address Organization Details Recorded Time 04/27/2021 text/html HPI Notes: 81 YO M here for a weak stream and to review Imaging for Kidney Cysts LUTS: Moderate, AUA = 10 UA - Trace blood CT (03/10/21) Probable complicated cyst anterior left kidney, Left Renal US recommendedmultiple simple renal cortical cyst without hydronephrosis. Innumerable calcifications within each kidney measuring up to 3 mm 81 YOM here for a weak stream and to review Imaging for Kidney Cysts. Reviewed over 15 pages of outside notes including his CT report from [facility] dated Mar 10 that finds a left lower pole exophytic nodule measuring 1 cm in with multiple calcifications noted in both kidneys along with a very large right renal cysts. Yr long dysuria, given an alpha gus and this resolved. Has a hx of stomach problems related to medication for a derm issue his inter fold roll cutter provided him Not emptying his bladder, not really appreciating incomplete emptying, yet his PVR is 170 ml. AUA SS=9 QOL=3 while on alfuzusion. MARA [facility] - [facility] 04/27/2021 15:58:44
--- OUTSIDE RECORDS SUMMARY | 2023-09-04 08:07 | XMS_ITS | Encounter Summary ---
Author Organization [facility] Address [address] [place] [address] Care Team Providers Care Center Manager Name Role Phone Jaylin Caballero MD Primary Care Provider [phone] Confirmed, No Pcp Primary Care Provider Unavaila ble Sarwat Grossman MD Primary Care Provider [phone] Sarwat Grossman MD Unavailable [phone] Sarwat Grossman MD Unavailable [phone] Sushma Mejia DO Unavailable [phone] Sarwat Grossman MD Unavailable [phone] Sushma Mejia DO Unavailable [phone] Atul Hagan MD Unavailable [phone] Carlos Godinez MD Primary Care Provider [phone] Emma Burnham APRN HUMAN RESOURCES RECEPTIONIST Unavailable + [phone] Sarwat Grossman MD Unavailable [phone] Emma Burnham APRN HUMAN RESOURCES RECEPTIONIST Unavailable + [phone] Ioana Higgins PA-C Unavailable [phone] Encounter Details Date Type Department Care Team (Late st Contact Info) Description 06/10/2008 Office Visit-[facility] [address] [place] [phone] Atul Hagan MD [address] [place] [address] Social History Tobacco Use Types Packs/Day Years Used Date Smoking Tobacco: Never Assessed Sex and Gender Information Value Date Recorded Sex Assigned at Not on file Gender Identity Not on file Sexual Orientation Choose not to disclose 2020 8:52 AM CDT documented as of this encounter Progress Notes * Atul Hagan MD - 06/12/2008 3:56 PM CDT Progress Note Created by: Atul Hagan M.D. DATE: 06/10/2008 JUANCARLOS ALAS DATE OF : 1940 AGE: [age] years old Referring Physician: JAYLIN CABALLERO Referring Clinic: [facility] CURRENT DIAGNOSES 1. - Hypertension, benign, 401.1 2. - CAD, 414.00 3. - CABG, V45.81 4. - Hypercholesterolemia, 272.0 5. - Atrial Fibrillation, 427.31 ALLERGIES NKA MEDICATIONS (prior to changes made today) 1. Warfarin Sodium 5 mg, 1 p.o. q.d. 2. Synthroid 0.175 mg, 1 p.o. q.d. 3. Aspirin 81 mg, Dose/instruction 4. Nitroglycerin 0.4 mg, Dose/instruction 5. Allopurinol 300 mg, 1 p.o. daily 6. Metoprolol 25mg, 1 p.o. b.i.d. 7. Lisinopril 10 Mg, 1 p.o. qAM 8. Simvastatin 20 mg, 1 p.o. qHS CHIEF COMPLAINTS F/u visit HISTORY OF PRESENT ILLNESS I had the opportunity to see Mr. Juancarlos Alas in the Cardiology Clinic today for reevaluation of coronary artery disease, hypertension, and dyslipidemia. As you may recall, Mr. Alas is a 68-year-old gentleman who has had a previous myocardial infarction and bypass surgery performed at [facility]. He subsequently had angioplasty and stenting of the right coronary artery and ramus artery in 2004. He also has a history of paroxysmal atrial fibrillation. He tends to be asymptomatic with his atrial fibrillation episodes. He is now doing very well. He is not having any concerning cardiac symptoms. He denies palpitations, lightheadedness, shortness of breath, chest discomfort, or syncope. He has no discomfort in the left arm, neck, jaw, back, or shoulder. He recently completed a stress test on 06-03-08 with exercise and nuclear perfusion imaging. This study showed no evidence of myocardial ischemia and in fact did not suggest infarction. It was a nongated study. This arrhythmia was primarily PACs and PVCs. He was in normal sinus rhythm for the study. It was noted that he had some mild chest pressure on the treadmill during the stress test. This is apparently a very rare phenomenon, and he has not had any concerns like that lately. He has not usednitroglycerin lately. On examination today, his blood pressure was 112/70. Heart rate was 60. Weight was 241 pounds. His lungs were clear. His heart rhythm was regular. He has no cardiac murmurs. He has no carotid bruits.No edema. PAST HISTORY Past Medical Illnesses: hypertension, osteoarthritis Past Cardiac Illnesses: atrial fibrillation, coronary artery disease Cardiology Procedures-Noninvasive: myocardial perfusion imaging (Nuclear) April 2005, echocardiogram April 2005, myocardial perfusion (Nuc) May 2008, stress echo May 2004 PMHx Echo Results: 05/01 mild aortic root enlargement, LA enlargement, borderline to mild concentric LVH PMHx Stress Echo Results: 05/31 possible false positive Left Ventricular Ejection Fraction: EF50% by nuclear study -April 2005 Nuclear Results: 06/04 no ischemia FAMILY HISTORY: Father - Age 89, hyperlipemia and hypertension; Mother - Age 83, hypertension; SOCIAL HISTORY Alcohol Use - drinks rarely; Smoking - used to smoke but quit; Diet - regular diet without modifications and caffeine use-1-2 per day; Exercise - no regular exercise and knee replacement 06/27/05; SeatBelt Use - always; Occupation - retired; Residence - lives with ; REVIEW OF SYSTEMS GENERAL weight gain, 1lb since last visit INTEGUMENTARY denies any change in hair or nails, rashes, or skin lesions. EYES wears eye glasses/contact lenses EARS, NOSE, THROAT, MOUTH denies any hearing loss, epistaxis, hoarseness or difficulty speaking. RESPIRATORY sleep apnea, uses cpap, same CARDIOVASCULAR negative for palpitations, chest pain, orthopnea, [...] lymphadenopathy. PHYSICAL EXAMINATION VITAL SIGNS: Blood Pressure: 112/70 Sitting, Left arm, large cuff Pulse- 60.00/min. Weight- 241.00 lbs. Height- 73.00 Temperature- .00 CONSTITUTIONAL cooperative, [...] time, person and place. MEDICATIONS UPDATED/STARTED TODAY: Allopurinol 300 mg, 1 p.o. daily, 0 Metoprolol 25mg, 1 p.o. b.i.d., #180 Lisinopril 10 Mg, 1 p.o. qAM, #90 MEDICATIONS REFILLED/STOPPED TODAY: Metoprolol Tartrate 50 Mg 1 p.o. b.i.d. #60 Medication Change and Lisinopril 5mg 1 p.o. qAM 0 Refill IMPRESSION/PLAN: Mr. Juancarlos Alas is a 68-year-old gentleman with hypertension, dyslipidemia, and coronary artery disease including a previous myocardial infarction, bypass surgery, and subsequent angioplasty and stenting. He has been doing well since 2004 when he had his last angioplasty and stenting procedure performed. He does not have any concerning cardiac symptoms. His cholesterol numbers reflect a low HDL problem. We have been able to push his LDL quite low to keep that more in balance. Unfortunately, that seems to be a persistent problem. His blood pressure control is excellent. He is complaining of a little bit of fatigue, which he attributes to metoprolol. I will allow him to cut his metoprolol dose in half to 25 mg p.o b.i.d and increase his lisinoprilto 10 mg daily. I will have him review his cholesterol numbers with Dr. Caballero. I will see him back again in one year. TODAYS ORDERS 1. Lipid Profile 1 day 2. F/U with Atul Hagan MD 1 year 3. Lipid profile/ALT 1 year Atul Hagan M.D. documented in this encounter Plan of Treatment Not on file documented as of this encounter Visit Diagnoses Not on filedocumented in this encounter Care Teams Center Manager Relationship Specialty Start Date End Date Jaylin Caballero MD PCP - General Internal Medicine 11/19/13 10/13/15 Confirmed, No Pcp PCP - General 10/14/15 10/25/15 Sarwat Grossman MD [address] [place] [address] PCP - General Internal Medicine-Hematology & Oncology 10/26/15 12/06/21 Sarwat Grossman MD [address] [place] [address] PCP - Assigned PCP 10/14/17 04/30/18 Carlos Godinez MD [facility] [address], [place] [address] PCP - General Family Medicine 12/07/21 Sarwat Grossman MD [address] [place] [address] Assigned PCP 10/14/17 10/11/19 Sushma Mejia DO [address] [place] [address] Assigned PCP 10/12/19 10/18/19 Sarwat Grossman MD [address] [place] [address] Assigned PCP 10/19/19 06/26/20 Sushma Mejia DO [address] [place] [address] Assigned PCP 06/27/20 02/03/22 Atul Hagan MD [address] [place] [address] Assigned Heart and Vascular Provider 11/14/20 03/21/23 Emma Burnham APRN HUMAN RESOURCES RECEPTIONIST [address] [place] [address] Assigned PCP 02/04/22 04/21/22 Sarwat Grossman MD [address] [address] Assigned PCP 04/22/22 11/03/22 Emma Burnham APRN HUMAN RESOURCES RECEPTIONIST [address] [place] [address] Assigned PCP 11/04/22 Ioana Higgins PA-C [address] [place] [address] Assigned Heart and Vascular Provider 03/22/23 documented as of this encounter
--- OUTSIDE RECORDS SUMMARY | 2023-09-04 08:07 | XMS_ITS | Clinical Summary ---
Author Organization [facility] Address [address] [place] [address] Care Team Providers Care Concrete Pourer Name Role Phone Unavailable Primary Care Provider Unavailabl e Source Comments PLEASE NOTE, if this patient is a minor, it may be UNLAWFUL to discuss sensitive information that is contained in these records (such as FAMILY PLANNING, MENTAL HEALTH or SUBSTANCE ABUSE) with the minor patient's parent or other person without the patient's specific authorization.[facility] Social History Tobacco Use Types Packs/Day Years Used Date Smoking Tobacco: Never Assessed Social Connections Answer Date Recorded Social Connections and Isolation 0 06/19/2020 Financial Resource Strain Answer Date R ecorded Financial Resource Strain 0 2020 Stress Answer Date Recorded Stress 0 06/19/2020 Physical Activity Answer Date Recorded Physical Activity 0 06/19/2020 Food Insecurity Answer Date Recorded Food 0 06/19/2020 Transportation Needs Answer Date Record ed Transportation 0 06/19/2020 Housing Stability Answer Date Recorded Housing 0 06/19/2020 Safety and Environment Answer Date Hiram rded Safety 0 06/19/2020 Utilities Answer Date Recorded Utilities 0 06/19/2020 Employment Answer Date Recorded Employment 0 06/19/2020 Sex and Gender Information Value Date Recorded Sex Assigned at Not on file Gender Identity Not on file Sexual Orientation Not on file Plan of Treatment Not on file
--- OUTSIDE RECORDS SUMMARY | 2023-09-04 08:07 | XMS_ITS | Encounter Summary ---
Author Organization [facility] Address [address] [place] [address] Care Team Providers Care Chocolate Production Machine Operator Name Role Phone Jaylin Caballero MD Primary Care Provider [phone] Confirmed, No Pcp Primary Care Provider Unavaila ble Sarwat Grossman MD Primary Care Provider [phone] Sarwat Grossman MD Unavailable [phone] Sarwat Grossman MD Unavailable [phone] Sushma Mejia DO Unavailable [phone] Sarwat Grossman MD Unavailable [phone] Sushma Mejia DO Unavailable [phone] Atul Hagan MD Unavailable [phone] Carlos Godinez MD Primary Care Provider [phone] Emma Burnham APRN COMPUTER INFORMATION SYSTEMS INSTRUCTOR Unavailable + [phone] Sarwat Grossman MD Unavailable [phone] Emma Burnham APRN COMPUTER INFORMATION SYSTEMS INSTRUCTOR Unavailable + [phone] Ioana Higgins PA-C Unavailable [phone] Encounter Details Date Type Department Care Team (Late st Contact Info) Description 03/20/2007 Office Visit-[facility] [address] [place] [phone] Atul Hagan MD [address] [place] [address] Social History Tobacco Use Types Packs/Day Years Used Date Smoking Tobacco: Never Assessed Sex and Gender Information Value Date Recorded Sex Assigned at Not on file Gender Identity Not on file Sexual Orientation Choose not to disclose 2020 8:52 AM CDT documented as of this encounter Progress Notes * Atul Hagan MD - 03/22/2007 7:49 AM CST Progress Note Created by: Atul Hagan M.D. DATE: 03/20/2007 JUANCARLOS ALAS DATE OF : 1940 AGE: [age] years old Referring Physician: JAYLIN CABALLERO Referring Clinic: [facility] CURRENT DIAGNOSES 1. - CAD, 414.00 2. - Hypercholesterolemia, 272.0 3. - CABG, V45.81 4. - Hypertension, benign, 401.1 5. - Atrial Fibrillation, 427.31 ALLERGIES NKA MEDICATIONS (prior to changes made today) 1. Metoprolol Tartrate 50 Mg, 1 p.o. b.i.d. 2. Warfarin Sodium 5 mg, 1 p.o. q.d. 3. Synthroid 0.175 mg, 1 p.o. q.d. 4. Aspirin 81 mg, Dose/instruction 5. Nitroglycerin 0.4 mg, Dose/instruction 6. Simvastatin 20 mg, 1 p.o. qHS 7. Lisinopril 5mg, 1 p.o. qAM CHIEF COMPLAINTS Per MD - follow up HISTORY OF PRESENT ILLNESS I had the opportunity to see Mr. Juancarlos Alas in cardiology clinic today for reevaluation of coronary artery disease and paroxysmal atrial fibrillation. As you may recall, Mr. Alas is a [id number] who had bypass surgery about 12 or 13 years ago at [facility]. That was done following a myocardial infarction, during which he had symptoms of nausea and lightheadedness and could not get up off the floor. His called 911 and I do not have any further details after that. He did not have chest pain with his event. In 2004, he had some recurrent problems, although I do not know the details regarding that episode but he ended up having an angiogram and angioplasty and stenting again done at [facility]. I see a stress echocardiogram done in May of 2004 at [facility], which suggested inferior wall ischemia and perhaps ischemia in the apex, as well. It may have been as a result of that stress test that he went on for a coronary angiogram at [facility] once again. He received stents to the ramus and right coronary artery at that time. His next stress test was in April of 2005, here at [facility], with nuclear imaging. Actually, I believe the images were read here but the study was performed at [facility]. That indicated a small area of mild ischemia within the mid anterior wall. That was done prior to consideration of knee surgery. He was able to complete his knee surgery and then went back for a secondknee surgery in 2006. That episode was complicated by recurrence of atrial fibrillation. He had hisfirst episode of atrial fibrillation in 2005, when he was hospitalized with pneumonia or some type of adverse reaction to a flu vaccine. At this time, he has not had any sense that he has been in atrial fibrillation. In fact, he has been asymptomatic during his previous episodes of atrial fibrillation as well and has not recognized any palpitations or other signs that he was in arrhythmia. Fortunately, he does not have any other concerning cardiac symptoms either, such as lightheadedness, near syncope, or syncope. He has no shortness of breath or chest discomfort. His cholesterol panel today indicates a total cholesterol of 129, triglycerides 159, HDL 32, LDL 65, and total cholesterol to HDL ratio of 4.0. His ALT is normal. On examination, his blood pressure is 110/70. Heart rate 62. Weight 229 pounds. His lungs are clear. His heart rhythm is regular. He has no cardiac murmurs and no carotid bruits. PAST HISTORY Past Medical Illnesses: [...] lives with ; REVIEW OF SYSTEMS GENERAL denies recent weight loss, weight gain, fever or chills or change in exercise tolerance., feels well, no change in exercise tolerance., weight loss, 11lbs, decreased energy INTEGUMENTARY denies any change in hair or nails, rashes, or skin lesions. EYES wears eye glasses/contact lenses EARS, NOSE, THROAT, MOUTH denies any hearing loss, epistaxis, hoarseness or difficulty speaking. RESPIRATORY sleep apnea, uses cpap CARDIOVASCULAR negative for palpitations, chest pain, orthopnea, [...] lymphadenopathy. PHYSICAL EXAMINATION VITAL SIGNS: Blood Pressure: 110/70 Sitting, Left arm, large cuff Pulse- 62.00/min. Weight- 229.20 lbs. Height- 73.00 Temperature- .00 CONSTITUTIONAL cooperative, [...] time, person and place. MEDICATIONS UPDATED/STARTED TODAY: Simvastatin 20 mg, 1 p.o. qHS, 0 Lisinopril 5mg, 1 p.o. qAM, 0 IMPRESSION: Mr. Juancarlos Alas is a 66-year-old gentleman with hypertension, dyslipidemia, history of smoking, which he has quit, and coronary artery disease. He had bypass surgery at [facility] about 13 years ago and angioplasty and stent to the right coronary artery and ramus artery in 2004, also at [facility]. I will try to get those records for the details. Fortunately, he is not havingany recurrent symptoms of coronary artery disease, although his last stress test in 2005 indicated a small area of mild mid anterior ischemia. That has been managed medically since that time. He also has paroxysmal atrial fibrillation. He seems to be in normal sinus rhythm clinically today and is asymptomatic in that respect. I would suggest that he continue his warfarin and metoprolol tocontrol that situation. His cholesterol numbers are pretty good, although his HDL is low. He has not been exercising recently and he will soon be going to [place] for the rest of the winter. I encouraged him to exercise regularly while he is down there to try to build up that HDL and keep that under control. Otherwise, hewill not make any other medication changes. I will plan to get a stress test again this year and hewishes to defer that until he comes back from [place], which is fine. I will then see him again next year and discuss the situation with him at that time. TODAYS ORDERS 1. Lipid profile/ALT 1 day 2. F/U with Atul Hagan MD 1 year 3. Treadmill Nuclear Study 1 year 4. Lipid profile/ALT 1 week 5. Treadmill Nuclear Study 2 months Atul Hagan M.D. documented in this encounter Plan of Treatment Not on file documented as of this encounter Visit Diagnoses Not on filedocumented in this encounter Care Teams Chocolate Production Machine Operator Relationship Specialty Start Date End Date Jaylin Caballero MD PCP - General Internal Medicine 11/19/13 10/13/15 Confirmed, No Pcp PCP - General 10/14/15 10/25/15 Sarwat Grossman MD [address] [place] [id number] PCP - General Internal Medicine-Hematology & Oncology 10/26/15 12/06/21 Sarwat Grossman MD [address] [place] [id number] PCP - Assigned PCP 10/14/17 04/30/18 Carlos Godinez MD [facility] [address] [place] [address] PCP - General Family Medicine 12/07/21 Sarwat Grossman MD [address] [place] [address] Assigned PCP 10/14/17 10/11/19 [place] [address] [place] [address] Assigned PCP 10/12/19 10/18/19 Sarwat Grossman MD [address] [address] Assigned PCP 10/19/19 06/26/20 Sushma Mejia DO [address] [place] [address] Assigned PCP 06/27/20 02/03/22 Atul Hagan MD [address] [place] [address] Assigned Heart and Vascular Provider 11/14/20 03/21/23 Emma Burnham APRN COMPUTER INFORMATION SYSTEMS INSTRUCTOR [address] [place] [address] Assigned PCP 02/04/22 04/21/22 Sarwat Grossman MD [address] [address] [place] [address] Assigned PCP 04/22/22 11/03/22 Emma Burnham APRN COMPUTER INFORMATION SYSTEMS INSTRUCTOR [address] [place] [address] Assigned PCP 11/04/22 Ioana Higgins PA-C [address] [place] [address] Assigned Heart and Vascular Provider 03/22/23 documented as of this encounter
--- NOTE | 2023-09-04 09:40 | CRLHL7_ITS ---
For Patients: As a result of the Century Cures Act, medical imaging exams and procedure reports are released immediately into your electronic medical record. You may view this report before your referring provider. If you have questions, please contact your health care provider. INDICATION: Pancreatic cyst. Comparison : Abdominal MRI dated 31 July 2022. Technique : Abdominal MRI with T1 in and out of phase, T2, diffusion weighted, and progressively delayed post-contrast images. Intravenous gadolinium administered. Findings : Minimal diffuse fatty infiltration of the liver. No focal abnormalities identified in the visualized portions of the liver, spleen, and adrenal glands. 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 A few tiny cysts in the pancreas are unchanged. The pancreas is otherwise unremarkable. 9.9 cm cyst extending off the medial aspect of the right kidney. Scattered smaller bilateral renal cysts. The kidneys are otherwise unremarkable. No hydronephrosis. No adenopathy. No bile duct dilation. Normal size of the main pancreatic duct. Impression : 1. 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 Consider follow-up MRI in 2 years for further evaluation. Management of Incidental Pancreatic Cysts: A White Paper of the ACR Incidental Findings Committee. Journal of the [employer]. Volume 14, Number 7, August 2016, pages 911-922. Dictated by Quincy Roman MD @ 09/05/2023 6:55:39 PM (Electronically Signed)
== END 2023-09-04 08:00 | disposition home or self-care (01) ==
LOC: MRI 08:04
PROVIDERS: PCP Family Medicine; Visit Provider Surgery
DX: K86.2 Cyst of pancreas (principal)
CPT/HCPCS: 74183; A9575

== ENCOUNTER 2024-07-01 14:36 | Outpatient (CLI) | payer MEDICARE, BC, SELFPAY | END 2024-07-01 14:37 | disposition home or self-care (01) | LOC: LKVREF 14:39 | PROVIDERS: PCP Family Medicine; Visit Provider Family Medicine | DX: E03.9 Hypothyroidism, unspecified (principal); I10 Essential (primary) hypertension | CPT/HCPCS: 84443 ==

== ENCOUNTER 2024-12-31 08:31 | Emergency (ER) | payer MEDICARE, BC, SELFPAY ==
--- OUTSIDE RECORDS SUMMARY | 2024-12-12 07:30 | XMS_ITS | Encounter Summary ---
Author Organization [place] Address [facility] [place] [address] Care Team Providers Care Fiscal Manager Name Role Phone Carlos Godinez MD Primary Care Provider [phone] Charlene Graff APRN DIRECTOR NON PROFIT Unavailable [phone] Charlene Graff APRN DIRECTOR NON PROFIT Unavailable [phone] Encounter Details Date Type Department Care Team (Late st Contact Info) Description 12/12/2024 8:[address] 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 No 10/09/2018 Social Connection and Isolation Panel Answer Date Recorded Frequency of Communication w ith Friends and Family More than three times a week 10/09/2018 Frequency of Social Gatherin gs with Friends and Family Three times a week 10/09/2018 Attends [employer] Services More than 4 times per year [...] Answer Date Recorded PHQ-2 Score 0 06/13/2023 [facility] - Occupational Stress Questionnaire Answer [...] Recorded Sex Assigned at Not on file Legal Sex Male 3:10 AM VENEER MATCHER Gender Identity Not on file Sexual Orientation Choose not to disclose 2020 8:52 AM CDT Occupation Industry Job Start Date Job End Date Not on file Not on file Not on file Not on file documented as of this encounter Plan of Treatment Upcoming Encounters Date Type Department Care Team (Late st Contact Info) Description 03/12/2025 2:15 PM VENEER MATCHER Office Visit [facility] [address] [facility] [address] [place] [address] Charelne Garff APRN DIRECTOR NON PROFIT [address], [id number] [place] [id number] Juancarlos James MD [address] [place], [place] [id number] documented as of this encounter Procedures Procedure Name Priority Date/Time Associated Diagnosis Comments LIPID PROFILE Routine 12/12/2024 8:44 AM CDT 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 ALT Routine 12/12/2024 8:44 AM CDT 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 BASIC METABOLIC PANEL Routine 12/12/2024 8:44 AM CDT Paroxysmal atrial fibrillation (H) CBC WITH PLATELETS Routine 12/12/2024 8: 44 AM CDT Paroxysmal atrial fibrillation (H) documented in this encounter Results * ALT (12/12/2024 8:44 AM CDT) ALT 39 0 - 70 U/L 12/12/2024 9:3 4 AM CDT [facility] LAB[facility]ATORY Blood STRUCTURE OF RIGHT UPPER LIMB / Unknown Venipuncture / Unknown 12/12/2024 8:44 AM CDT 12/12/2024 8:44 AM CDT us Charlene Graff APRN DIRECTOR NON PROFIT LAB - BLOOD ORDERABLES Final Result LABORATORY [facility] [address] Lab (1st floor, no room number) [place] [address] * (ABNORMAL) Lipid Profile (12/12/2024 8:44 AM CDT) Cholesterol 93 <200 mg/dL 12/12/2024 11:09 AM CDT [facility] Triglycerides 63 <150 mg/dL 12/12/2024 11:09 AM CDT [facility] Direct Measure HDL 38(L) >=40 mg/dL 2024 11:09 AM CDT [facility] LDL Cholesterol Calculated 42 <100 mg/dL 12/12/2024 11:09 AM CDT [facility] Comment:LDL calculated using the Friedewald equation. Non HDL Cholesterol 55 <130 mg/dL 12/12/2024 11:09 AM CDT [facility] Patient Fasting > 8hrs? Yes 12/12/2024 11:09 AM CDT [facility] Blood STRUCTURE OF RIGHT UPPER LIMB / Unknown Venipuncture / Unknown 12/12/2024 8:44 AM CDT 12/12/2024 8:44 AM CDT Narrative [facility] - 12/12/2024 11:09 AM CDT Cholesterol Desirable: < 200 mg/dL Borderline High: 200 - 239 mg/dL High: >= 240 mg/dL Triglycerides Normal: < 150 mg/dL Borderline High: 150 - 199 mg/dL High: 200-499 mg/dL Very High: >= 500 mg/dL Direct Measure HDL Female: >= 50 mg/dL Male: >= 40 mg/dL LDL Cholesterol Desirable: < 100 mg/dL Above Desirable: 100 - 129 mg/dL Borderline High: 130 - 159 mg/dL High: 160 - 189 mg/dL Very High: >= 190 mg/dL Non HDL Cholesterol Desirable: < 130 mg/dL Above Desirable: 130 - 159 mg/dL Borderline High: 160 - 189 mg/dL High: 190 - 219 mg/dL Very High: >= 220 mg/dL us Charlene Graff APRN DIRECTOR NON PROFIT LAB - BLOOD ORDERABLES Final Result LABORATORY [facility] [address] [facility] [place] [address] [address] Lab (1st floor, no room number) [place] [address] * (ABNORMAL) CBC with platelets (12/12/2024 8:44 AM CDT) WBC Count 4.99 4.00 - 11.00 10e3/uL 12/12/2024 9:10 AM CDT [facility] LAB[facility]ATORY RBC Count 3.23(L) 4.40 - 5.90 10e6/uL 12/12/2024 9:10 AM CDT [facility] Hemoglobin 11.1(L) 13.3 - 17.7 g/dL 12/12/2024 9:10 AM CDT [facility] Hematocrit 33.7(L) 40.0 - 53.0 % 12/12/2024 9:10 AM CDT [facility] MCV 104.3(H) 78.0 - 100.0 fL 12/12/2024 9:10 AM CDT [facility] MCH 34.4(H) 26.5 - 33.0 pg 12/12/2024 9:10 AM CDT [facility] MCHC 32.9 31.5 - 36.5 g/dL 12/12/2024 9:10 AM CDT [facility] RDW 15.9(H) 10.0 - 15.0 % 12/12/2024 9:10 AM CDT [facility] Platelet Count 136(L) 150 - 450 10e3/uL 12/12/2024 9:10 AM CDT LABORATORY Blood STRUCTURE OF RIGHT UPPER LIMB / Unknown Venipuncture / Unknown 12/12/2024 8:44 AM CDT 12/12/2024 8:44 AM CDT Charlene Graff SECURITY INSPECTOR DIRECTOR NON PROFIT LAB - BLOOD ORDERABLES Final Result LABORATORY [facility] [address] [facility] Lab (1st floor, no room number) [place] [address] * Basic metabolic panel (12/12/2024 8:44 AM CDT) Sodium 137 135 - 145 mmol/L 12/12/2024 9:34 AM CDT LABORATORY Potassium 4.0 3.4 - 5.3 mmol/L 12/12/2024 9:34 AM CDT LABORATORY Chloride 103 98 - 107 mmol/L 12/12/2024 9:34 AM CDT LABORATORY Carbon Dioxide (CO2) 23 22 - 29 mmol/L 12/12/2024 9:34 AM CDT LABORATORY Anion Gap 11 7 - 15 mmol/L 12/12/2024 9:34 AM CDT LABORATORY Urea Nitrogen 18.8 8.0 - 23.0 mg/dL 12/12/2024 9:34 AM CDT LABORATORY Creatinine 0.84 0.67 - 1.17 mg/dL 12/12/2024 9:34 AM CDT LABORATORY GFR Estimate 85 >60 mL/min/1.7 3m2 12/12/2024 9:34 AM CDT LABORATORY Comment:eGFR calculated us2020 CKD-EPI equation. 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
[2024-12-31 08:35] VITALS: BP 136/86; PULSE 69; RESP 18; TEMP 37.1; O2SAT 97
--- NOTE | 2024-12-31 09:14 | ED.GENADULT ---
HPI - General Adult General Chief complaint: Sore Throat Stated complaint: Sore throat, difficulty swallowing, fever Time Seen by Provider: 12/31/24 09:05 History of Present Illness HPI narrative: Patient is a pleasant 84-year-old male with multiple medical issues that were reviewed in his chart, he was seen yesterday at urgent care negative strep test was treated with cefdinir for antibiotic, he has had difficulty swallowing due to sore throat. He does not have other concerned about his throat he has got good airway he is not short of breath. He has no chest pain. He has had mild low-grade fever. He has been put on cefdinir but is having trouble swallowing the pills he is able to swallow water and eat small amounts. He does not have focal pain. He had a negative strep test yesterday as mention any had a triple swab done here on presentation to ER. No chest pain, shortness of breath. Bowel and bladder normal. Related Data Home Medications ?Medication ?Instructions ?Recorded ?Confirmed nitroglycerin 0.4 mg sublingual 0.4 mg sublingual 10/05/21 12/30/24 tablet vitamins A,C,H-obmj-vvcuqe 4,296 1 cap PO BID 10/30/23 12/31/24 mcg-226 mg-90 mg capsule (PreserVision AREDS) betamethasone, augmented 0.05 % 1 applic topical PRN 04/28/24 12/30/24 topical cream atorvastatin 20 mg tablet 20 mg PO QDAY 07/01/24 12/31/24 bumetanide 1 mg tablet 1 mg PO BID 07/01/24 12/31/24 Previous Rx's ?Medication ?Instructions ?Recorded alfuzosin 10 mg tablet,extended 10 mg PO QDAY #90 tabs 07/01/24 release 24 hr allopurinol 300 mg tablet 300 mg PO QDAY #90 tabs 07/01/24 apixaban 5 mg tablet (Eliquis) 5 mg PO BID #180 tabs 07/01/24 levothyroxine 175 mcg tablet 175 mcg PO DAILY #90 tabs 07/01/24 (Synthroid) cefdinir 300 mg capsule 300 mg PO BID 10 days #20 caps 12/30/24 Allergies Allergy/AdvReac Type Severity Reaction Status Date / Time No Known Drug Allergies Allergy Verified 12/31/24 08:41 Review of Systems Status of ROS: Reports: 6 or more systems reviewed and unremarkable except as noted in History and below [facility] Medical History Left-sided chest wall pain ?R07.89 - Other chest pain (ICD-10) Skin tear of right upper extremity ?S41.111A - Laceration without foreign body of right upper arm, initial encounter (ICD-10) Occipital neuralgia of right side ?M54.81 - Occipital neuralgia (ICD-10) Surgical History Status post three vessel coronary artery bypass ?Z95.1 - Presence of aortocoronary bypass graft (ICD-10) History of total bilateral knee replacement ?Z96.653 - Presence of artificial knee joint, bilateral (ICD-10) History of coronary artery stent placement ?Z95.5 - Presence of coronary angioplasty implant and graft (ICD-10) History of carpal tunnel release ?Z98.890 - Other specified postprocedural states (ICD-10) Social History Narrative: ' Non smoker 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 [employer] What is your current living situation?: I presently have a place to live Problems where you live: no known problems In the past 12 months, utilities in danger of being shut off: no In past 12 months, lack of transportation kept you from medical appts, meetings, work, or getting things needed for daily living: no In the past 12 mos, have been you worried that your food would run out before you had money to buy more?: never true In the past 12 mos, the food you bought just didn't last and you didn't have money to buy more?: never true Smoking Status: Former smoker Non-prescribed substance use: denies use How often does anyone, including family, friends and others, physically hurt you: never How often does anyone, including family, friends and others, insult or talk down to you: never How often does anyone, including family, friends and others, threaten you with harm: never How often does anyone, including family, friends and others, scream or curse at you: never Exam Narrative: Exam Narrative: Objective: Vital signs unremarkable afebrile O2 sat 97% on room air Patient no apparent distress talks in even unlabored unlabored sentences He has no trismus Throat shows some mild redness no peritonsillar swelling. Chest is clear, patient does report he has had a cough. Extremities good perfusion neurologic nonfocal. Patient is ambulatory without difficulty. Const: Vital Signs, click to edit/add: Vital Signs - 24 hr 12/31/24 08:35 Temperature 98.7 F Pulse Rate [Right Pulse Oximeter] 69 Respiratory Rate 18 Blood Pressure [Ri ght Upper Arm] 136/86 Pulse Oximetry 97 Oxygen Delivery Me thod Room Air Course Vital Signs Vital signs: Initial Vital Signs Temperature 98.7 F 12/31/24 08:35 Temperature Source Temporal Artery Scan 12/31/24 08:35 Pulse Rate 69 12/31/24 08:35 Pulse Rhythm Regular 12/31/24 08:35 Pulse Strength 3+ Normal 12/31/24 08:35 Respiratory Rate 18 12/31/24 08:35 Blood Pressure 136/86 12/31/24 08:35 Blood Pressure Mean 102 12/31/24 08:35 Blood Pressure Position Sitting 12/31/24 08:35 Pulse Oximetry 97 12/31/24 08:35 Oxygen Delivery Method Room Air 12/31/24 08:35 Vital Signs Temperature 98.7 F 12/31/24 08:35 Pulse Rate 69 12/31/24 08:35 Respiratory Rate 18 12/31/24 08:35 Blood Pressure 136/86 12/31/24 08:35 Pulse Oximetry 97 12/31/24 08:35 Oxygen Delivery Method Room Air 12/31/24 08:35 Temperature 98.7 F 12/31/24 08:35 Pulse Rate 69 12/31/24 08:35 Respiratory Rate 18 12/31/24 08:35 Blood Pressure 136/86 12/31/24 08:35 Pulse Oximetry 97 12/31/24 08:35 Oxygen Delivery Method Room Air 12/31/24 08:35 Medications Administered Medications: Discontinued Medications Generic Name Dose Route Start Last Admin Trade Name Freq PRN Reason Stop Dose Admin Ceftriaxone Sodium 500 mg 12/31/24 09:13 12/31/24 09:31 Ceftriaxone 500 Mg Vial IM 12/31/24 09:14 500 mg ONCE ONE Administration Lidocaine HCl 1 ml 12/31/24 09:13 12/31/24 09:31 Lidocaine 1% 5 Ml (Pf) 5 Ml Vial IM 1 ml DIRECTED PRN Administration Pain Prednisone 50 mg 12/31/24 09:13 12/31/24 09:32 Prednisone 10 Mg Tablet PO 12/31/24 09:14 50 mg ONCE ONE Administration Medical Decision Making MDM Narrative Medical decision making narrative: 84-year-old male with persistent pharyngitis upper respiratory infection, cough. At this point I think it be reasonable to treat him since he started antibiotics but is it is painful to swallow the pills given prednisone 50 mg orally x1. Will also give him an injection of Rocephin 500 mg IM. He can start the cefdinir again later today or tomorrow as his throat feels better. If he has continued problems or concerns and have him come back to the ER and we could consider CT scanning with IV contrast of his neck. However at this point he has no focal swelling, he has got normal phonation no trismus. I think we can try and treat with the antibiotic again in seal this progresses. Will call back the results of his triple swab if positive. Lab Data Labs: Lab Results 12/31/24 Range/Units 08:48 SARS-CoV-2 (PCR) Negative SARS-CoV-2 (Negative) Influenza Type A (PCR) Negative PCR FLU A (Negative) Influenza Type B (PCR) Negative PCR FLU B (Negative) RSV (PCR) Negative PCR RSV (Negative) Discharge Plan Discharge Clinical Impression: Pharyngitis, Bronchitis Patient Disposition: Home w/ Parent or Adult Condition: Stable Additional Instructions: Light activity, fluids and small amounts of food as tolerated. You can start your antibiotic later today or tomorrow as your throat feels a little better. If he continued to have problems through tomorrow he should return to the emergency department for additional assessment. Especially if you have trouble that does not resolve in terms of the swallowing, recommend he return within the next 24-48 hours for reassessment. Activity Level: Light activity Discharge Diet: Full Liquid Diet Detail: Advance diet as tolerated Prescriptions: No Action nitroglycerin 0.4 mg tablet, sublingual 0.4 mg sublingual betamethasone, augmented 0.05 % cream 1 applic topical PRN PreserVision AREDS 4,296 mcg-226 mg-90 mg capsule 1 cap PO BID bumetanide 1 mg tablet 1 mg PO BID Eliquis 5 mg tablet 5 mg PO BID Qty: 180 3RF allopurinol 300 mg tablet 300 mg PO QDAY Qty: 90 3RF alfuzosin 10 mg tablet extended release 24 hr 10 mg PO QDAY Qty: 90 3RF levothyroxine [Synthroid] 175 mcg tablet 175 mcg PO DAILY Qty: 90 3RF atorvastatin 20 mg tablet 20 mg PO QDAY cefdinir 300 mg capsule 300 mg PO BID 10 Days Qty: 20 0RF Follow Up/Referrals: Patrice Yoon MD [Primary Care Provider, Family Practice] Stand Alone Forms: [facility] Info Instructions
--- OUTSIDE RECORDS SUMMARY | 2024-12-31 09:22 | XMS_ITS | Encounter Summary ---
Author Organization [place] Address [address] [place] [address]. [place] [address] Care Team Providers Care Authors Motivational Name Role Phone Carlos Godinez MD Primary Care Provider [phone] Charlene Graff APRN AERONAUTICAL RESEARCH ENGINEER Unavailable [phone] Charlene Graff APRN AERONAUTICAL RESEARCH ENGINEER Unavailable [phone] Encounter Details Date Type Department Care Team (Late st Contact Info) Description 12/15/2024 Results Follow-Up [facility] Services - Heart & Vascular Service Line [address] [place] [address] Charlene Graff APRN AERONAUTICAL RESEARCH ENGINEER [address], [id number] [place] [address] Subj: Message about your results Social History Tobacco Use Types Packs/Day Years [...] Family Three times a week 10/09/2018 Attends Gnosticism Services More than 4 times per year [...] Answer Date Recorded PHQ-2 Score 0 06/13/2023 [facility] ional Health - Occupational Stress [...] on file Legal Sex Male 3:10 AM EDITORIAL DIRECTOR Gender Identity Not on file Sexual Orientation Choose not to disclose 2020 8:52 AM CDT Occupation Industry Job Start Date Job End Date Not on file Not on file Not on file Not on file documented as of this encounter Plan of Treatment Upcoming Encounters Date Type Department Care Team (Late st Contact Info) Description 03/12/2025 2:15 PM EDITORIAL DIRECTOR Office Visit [facility] [id number] [place] [address] [address] [place] [phone] Charlene Graff APRN AERONAUTICAL RESEARCH ENGINEER [id number] [place] [id number] Juancarlos James MD [address] [place] [phone] documented as of this encounter Visit Diagnoses Not on filedocumented in this encounter Care Teams Authors Motivational Relationship Specialty Start Date End Date Carlos Godinez MD PCP - General Family Medicine 12/07/21 Charlene Graff APRN AERONAUTICAL RESEARCH ENGINEER [id number] [place] [id number] Nurse Practitioner Cardiology 10/22/23 Charlene Graff APRN [facility] [address], [id number] [place] [address] Assigned Heart and Vascular Provider 06/18/24 documented as of this encounter
--- OUTSIDE RECORDS SUMMARY | 2024-12-31 09:22 | XMS_ITS | Encounter Summary ---
Author Organization [place] Address [address] [place] [address] Care Team Providers Care Clinical Data Assistant Name Role Phone Carlos Godinez MD Primary Care Provider [phone] Charlene Graff APRN PROFILE SAW OPERATOR Unavailable [phone] Charlene Graff APRN PROFILE SAW OPERATOR Unavailable [phone] Encounter Details Date Type Department Care Team (Latest Contact Info) Description 12/12/2024 Travel Social History Tobacco Use Types Packs/Day [...] Family Three times a week 10/09/2018 Attends Congregation Services More than 4 times per year [...] Answer Date Recorded PHQ-2 Score 0 06/13/2023 [facility] Occupat ional Health - [...] on file Legal Sex Male 3:10 AM HVAC PROJECT MANAGER Gender Identity Not on file Sexual Orientation Choose not to disclose 2020 8:52 AM CDT Occupation Industry Job Start Date Job End Date Not on file Not on file Not on file Not on file documented as of this encounter Plan of Treatment Upcoming Encounters Date Type Department Care Team (Late st Contact Info) Description 03/12/2025 2:15 PM HVAC PROJECT MANAGER Office Visit [address] [place] [phone] Charlene Graff APRN PROFILE SAW OPERATOR [address], [phone] [place] [address] Juancarlos James MD [address] [place] [phone] documented as of this encounter Visit Diagnoses Not on filedocumented in this encounter Care Teams Clinical Data Assistant Relationship Specialty Start Date End Date Carlos Godinez MD PCP - General Family Medicine 12/07/21 Charlene Graff APRN PROFILE SAW OPERATOR [address], [id number] [place] [address] Nurse Practitioner Cardiology 10/22/23 Charlene Graff APRN PROFILE SAW OPERATOR [address], [id number] [place] [address] Assigned Heart and Vascular Provider 06/18/24 documented as of this encounter
--- OUTSIDE RECORDS SUMMARY | 2024-12-31 09:23 | XMS_ITS | Encounter Summary ---
Author Organization [place] Address [address] [place] [address] Care Team Providers Care Table Games Manager Name Role Phone Sarwat Grossman MD Primary Care Provider [phone] Sarwat Grossman MD Unavailable Sarwat Grossman MD Unavailable [phone] Sushma Mejia DO Unavailable Sarwat Grossman MD Unavailable [phone] Sushma Mejia DO Unavailable Atul Hagan MD Unavailable Carlos Godinez MD Primary Care Provider [phone] Emma Burnham APRN BOX LINING MACHINE FEEDER Unavailable Sarwat Grossman MD Unavailable [phone] Emma Burnham APRN BOX LINING MACHINE FEEDER Unavailable Ioana Higgins PA-C Unavailable [phone] [facility] [place] [facility] Unavailable Charlene Graff APRN, CNP Unavailable Atul Hagan MD Unavailable [phone] Charlene Graff APRN, CNP Unavailable [phone] Encounter Details Date Type Department Care Team (Late st Contact Info) Description 11/25/2017 MyC Medical Advice [facility] [address] [place] [address] Sarwat Grossman MD [address] [place] [address] Social History Tobacco Use Types Packs/Day Years Used Date Smoking Tobacco: Former Cigarettes Q uit: 03/29/2005 Smokeless Tobacco: Never Alcohol Use Standard Drinks/Week Comments Yes 0 (1 standard drink = 0.6 oz pur e alcohol) rarely Sex and Gender Information Value Date Recorded Sex Assigned at Not on file Legal Sex Male 3:10 AM JUNIOR ART DIRECTOR Gender Identity Not on file Sexual Orientation Choose not to disclose 2020 8:52 AM CDT Occupation Industry Job Start Date Job End Date Not on file Not on file Not on file Not on file documented as of this encounter Plan of Treatment Upcoming Encounters Date Type Department Care Team (Late st Contact Info) Description 03/12/2025 2:15 PM JUNIOR ART DIRECTOR Office Visit [facility] [address] [facility] [address] [place] [address] Charlene Graff APRN BOX LINING MACHINE FEEDER [address], W952-D221 [place] [address] Juancarlos James MD [address] [place] [address] documented as of this encounter Visit Diagnoses Not on filedocumented in this encounter Care Teams Table Games Manager Relationship Specialty Start Date End Date Sarwat Grossman MD [address] [place] [address] PCP - General Internal Medicine-Hematology & Oncology 10/26/15 12/06/21 Sawrat Grossman MD [address] [place] [address] PCP - Assigned PCP 10/14/17 04/30/18 Carlos Godinez MD [address] [place] [address] PCP - General Family Medicine 12/07/21 Sarwat Grossman MD [address] [place] [address] Assigned PCP 10/14/17 10/11/19 Sushma Mejia DO [address]00 [place] [address] Assigned PCP 10/12/19 10/18/19 Sarwat Grossman MD [address] [employer] [address] [place] [address] Assigned PCP 10/19/19 06/26/20 Sushma Mejia DO [address] [place] [address] Assigned PCP 06/27/20 02/03/22 Atul Hagan MD [address] [place] [address] Assigned Heart and Vascular Provider 11/14/20 03/21/23 Emma Burnham APRN BOX LINING MACHINE FEEDER [address] [place] [address] Assigned PCP 02/04/22 04/21/22 Sarwat Grossman MD [address] [place] [address] Assigned PCP 04/22/22 11/03/22 Emma Burnham APRN BOX LINING MACHINE FEEDER [address] [place] [address] Assigned PCP 11/04/22 09/17/23 Ioana Higgins PA-C [address] [place] [address] Assigned Heart and Vascular Provider 03/22/23 02/17/24 [address] [address] [place] [address] Assigned PCP 09/18/23 11/18/23 Charlene Graff APRN BOX LINING MACHINE FEEDER [address], B911-S087 [place] [address] Nurse Practitioner Cardiology 10/22/23 Atul Hagan MD [address] [place] [address] Assigned Heart and Vascular Provider 02/18/24 06/17/24 Charlene Graff APRN BOX LINING MACHINE FEEDER [address], O385-J884 [place] [address] Assigned Heart and Vascular Provider 06/18/24 documented as of this encounter
--- OUTSIDE RECORDS SUMMARY | 2024-12-31 09:23 | XMS_ITS | Encounter Summary ---
Author Organization [place] Address [address] [place] [address] Care Team Providers Care Mechanical Expert Name Role Phone Sarwat Grossman MD Primary Care Provider Sarwat Grossman MD Unavailable [phone] Sushma Mejia DO Unavailable Atul Hagan MD Unavailable Carlos Godinez MD Primary Care Provider Emma Burnham APRN TEXTILE SCIENCE TECHNICIAN Unavailable [phone] Sarwat Grossman MD Unavailable [phone] Emma Burnham APRN TEXTILE SCIENCE TECHNICIAN Unavailable Ioana Higgins PA-C Unavailable [phone] [facility] Unavailable Charlene Graff APRN TEXTILE SCIENCE TECHNICIAN Unavailable [phone] Atul Hagan MD Unavailable [phone] Charlene Graff APRN TEXTILE SCIENCE TECHNICIAN Unavailable [phone] Encounter Details Date Type Department Care Team (Late st Contact Info) Description 12/29/2019 [facility] [address] [place] [address] Sarwat Grossman MD [address] [facility] [address] [place] [address] Social History Tobacco Use Types Packs/Day Years [...] Family Three times a week 10/09/2018 Attends [employer] More than 4 times per year [...] Answer Date Recorded PHQ-2 Score 0 03/12/2018 [employer] [place] [facility] [employer] - Occupational Stress [...] on file Legal Sex Male 3:10 AM RESPIRATORY COORDINATOR Gender Identity Not on file Sexual Orientation Choose not to disclose 2020 8:52 AM CDT Occupation Industry Job Start Date Job End Date Not on file Not on file Not on file Not on file documented as of this encounter Plan of Treatment Upcoming Encounters Date Type Department Care Team (Late st Contact Info) Description 03/12/2025 2:15 PM RESPIRATORY COORDINATOR Office Visit [facility] [id number] [place] [address] [address] [place] [address] Charlene Graff APRN TEXTILE SCIENCE TECHNICIAN [address], G484-W575 [place] [address] Juancarlos James MD [address] [place] [address] documented as of this encounter Visit Diagnoses Not on filedocumented in this encounter Care Teams Mechanical Expert Relationship Specialty Start Date End Date Sarwat Grossman MD [address] [place] [address] PCP - General Internal Medicine-Hematology & Oncology 10/26/15 12/06/21 Carlos Godniez MD [address] [place] [address] PCP - General Family Medicine 12/07/21 Sarwat Grossman MD [address] [place] [address] Assigned PCP 10/19/19 06/26/20 Sushma Mejia DO [address] [place] [address] Assigned PCP 06/27/20 02/03/22 Atul Hagan MD [address] [place] [address] Assigned Heart and Vascular Provider 11/14/20 03/21/23 Emma Burnham APRN TEXTILE SCIENCE TECHNICIAN [address] [place], [place] [address] Assigned PCP 02/04/22 04/21/22 Sarwat Grossman MD [address] [place] [address] Assigned PCP 04/22/22 11/03/22 Emma Burnham APRN TEXTILE SCIENCE TECHNICIAN [address] [place] [address] [address] Assigned PCP 11/04/22 09/17/23 Ioana Higgins PA-C [address] [place] [address] Assigned Heart and Vascular Provider 03/22/23 02/17/24 [place] [address] [place] [address] Assigned PCP 09/18/23 11/18/23 Charlene Graff APRN TEXTILE SCIENCE TECHNICIAN [address], M395-E160 [place] [address] Nurse Practitioner Cardiology 10/22/23 Atul Hagan MD [address] [place] [address] Assigned Heart and Vascular Provider 02/18/24 06/17/24 Charlene Graff APRN TEXTILE SCIENCE TECHNICIAN [address], W947-E464 [place] [address] Assigned Heart and Vascular Provider 06/18/24 documented as of this encounter
--- OUTSIDE RECORDS SUMMARY | 2024-12-31 09:23 | XMS_ITS | Encounter Summary ---
Author Organization [place] Address [address] [place] [address] Care Team Providers Care Supervisor Garage Name Role Phone Jaylin Caballero MD Primary Care Provider [phone] Confirmed, No Pcp Primary Care Provider Unavaila ble Sarwat Grossman MD Primary Care Provider [phone] Sarwat Grossman MD Unavailable [phone] Sarwat Grossman MD Unavailable [phone] Sushma Mejia DO Unavailable [phone] Sarwat Grossman MD Unavailable Sushma Mejia DO Unavailable [phone] Atul Hagan MD Unavailable [phone] Carlos Godinez MD Primary Care Provider [phone] Emma Burnham APRN BAKERY CHEF Unavailable + [phone] Sarwat Grossman MD Unavailable Emma Burnham APRN BAKERY CHEF Unavailable + [phone] Ioana Higgins PA-C Unavailable [phone] [facility] Unavailable Charlene Graff APRN BAKERY CHEF Unavailable [phone] Atul Hagan MD Unavailable [phone] Charlene Graff APRN BAKERY CHEF Unavailable [phone] Encounter Details Date Type Department Care Team (Late st Contact Info) Description 03/20/2007 Office Visit-[facility] [place] [address] [facility] [address] [place] [address] Atul Hagan MD [address] [facility] [address] [place] [address] Social History Tobacco Use Types Packs/Day Years Used Date Smoking Tobacco: Never Assessed Sex and Gender Information Value Date Recorded Sex Assigned at Not on file Legal Sex Male 3:10 AM REHABILITATION PHYSICIAN Gender Identity Not on file Sexual Orientation Choose not to disclose 2020 8:52 AM CDT documented as of this encounter Progress Notes * Atul Hagan MD - 03/22/2007 7:49 AM CST Progress Note Created by: Atul Hagan M.D. DATE: 03/20/2007 JUANCARLOS ALAS DATE OF : 1940 AGE: [age] years old Referring Physician: JAYLIN CABALLERO Referring Clinic: [facility] INTERNAL MEDICINE CURRENT DIAGNOSES 1. - CAD, [...] you may recall, Mr. Alas is a [id number] who had bypass surgery about 12 or 13 years ago at [facility]. That was done following a myocardial infarction, [...] and angioplasty and stenting again done at [facility]. I see a stress echocardiogram done in May of 2004 at [facility], which suggested inferior wall ischemia and perhaps ischemia in the apex, as well. It may have been as a result of that stress test that he went on for a coronary angiogram at [facility] once again. He received stents to the ramus and right coronary artery at that time. His next stress test was in April of 2005, here at [facility], with nuclear imaging. Actually, I believe the images were read here but the study was performed at [facility]. That indicated a small area of mild [...] artery disease. He had bypass surgery at [facility] about 13 years ago and angioplasty and stent to the right coronary artery and ramus artery in 2004, also at [facility]. I will try to get [...] and he will soon be going to [place] for the rest of the winter. I encouraged him to exercise regularly while he is down there to try to build up that HDL and keep that under control. Otherwise, hewill not make any other medication changes. I will plan to get a stress test again this year and hewishes to defer that until he comes back from [place], which is fine. I will then see him again next year and discuss the situation with him at that time. TODAYS ORDERS 1. Lipid profile/ALT 1 day 2. F/U with Atul Hagan MD 1 year 3. Treadmill Nuclear Study 1 year 4. Lipid profile/ALT 1 week 5. Treadmill Nuclear Study 2 months Atul Hagan M.D. documented in this encounter Plan of Treatment Upcoming Encounters Date Type Department Care Team (Late st Contact Info) Description 03/12/2025 2:15 PM REHABILITATION PHYSICIAN Office Visit [facility] [address] [facility] [address] [place] [address] Charlene Graff APRN BAKERY CHEF [address], A797-X840 [place] [address] Juancarlos James MD [address] [place] [address] documented as of this encounter Visit Diagnoses Not on filedocumented in this encounter Care Teams Supervisor Garage Relationship Specialty Start Date End Date Jaylin Caballero MD PCP - General Internal Medicine 11/19/13 10/13/15 Confirmed, No Pcp PCP - General 10/14/15 10/25/15 Sarwat Grossman MD [address] [employer] [address] [place] [address] PCP - General Internal Medicine-Hematology & Oncology 10/26/15 12/06/21 Sarwat Grossman MD [address] [employer] [address] [place] [address] PCP - Assigned PCP 10/14/17 04/30/18 Carlos Godinez MD [address] [place] [address] PCP - General Family Medicine 12/07/21 Sarwat Grossman MD [address] [place] [address] Assigned PCP 10/14/17 10/11/19 Sushma Mejia DO [address] [place] [address] Assigned PCP 10/12/19 10/18/19 Sarwat Grossman MD [address] [place] [address] Assigned PCP 10/19/19 06/26/20 Sushma Mejia DO [address] [place] [address] Assigned PCP 06/27/20 02/03/22 Atul Hagan MD [address] [place] [address] Assigned Heart and Vascular Provider 11/14/20 03/21/23 Emma Burnham APRN BAKERY CHEF [address] [place] [address] Assigned PCP 02/04/22 04/21/22 Sarwat Grossman MD [address] [facility] [address] [place] [address] Assigned PCP 04/22/22 11/03/22 Emma Burnham APRN BAKERY CHEF [address] [place] [address] Assigned PCP 11/04/22 09/17/23 Ioana Higgins PA-C [address] [place] [address] Assigned Heart and Vascular Provider 03/22/23 02/17/24 [facility] [address] [place] [address] Assigned PCP 09/18/23 11/18/23 Charlene Graff APRN BAKERY CHEF [address], G010-P871 [place] [address] Nurse Practitioner Cardiology 10/22/23 Atul Hagan MD [address] [place] [address] Assigned Heart and Vascular Provider 02/18/24 06/17/24 Charlene Graff APRN [facility] [address], R472-Q446 [place] [address] Assigned Heart and Vascular Provider 06/18/24 documented as of this encounter
--- OUTSIDE RECORDS SUMMARY | 2024-12-31 09:23 | XMS_ITS | Encounter Summary ---
Author Organization [place] Address [address] [place] [address] Care Team Providers Care Project Internship Name Role Phone Jaylin Good MD Primary Care Provider [phone] Confirmed, No Pcp Primary Care Provider Unavaila ble Sarwat Grossman MD Primary Care Provider [phone] Sarwat Grossman MD Unavailable [phone] Sarwat Grossman MD Unavailable [phone] Sushma Mejia DO Unavailable [phone] Sarwat Grossman MD Unavailable [phone] Sushma Mejia DO Unavailable Atul Hagan MD Unavailable [phone] Carlos Godinez MD Primary Care Provider [phone] Emma Burnham APRN TEST DESKMAN Unavailable [phone] Sarwat Grossman MD Unavailable [phone] Emma Burnham APRN TEST DESKMAN Unavailable [phone] Ioana Higgins PA-C Unavailable [phone] [facility] Unavailable Charlene Graff APRN TEST DESKMAN Unavailable [phone] Atul Hagan MD Unavailable [phone] Charlene Graff APRN TEST DESKMAN Unavailable [phone] Encounter Details Date Type Department Care Team (Late st Contact Info) Description 09/21/2010 Office Visit-[facility] [place] [address] [facility] [address] [place] [address] Atul Hagan MD [address] [facility] [address] [place] [address] Social History Tobacco Use Types Packs/Day Years Used Date Smoking Tobacco: Never Assessed Sex and Gender Information Value Date Recorded Sex Assigned at Not on file Legal Sex Male 3:10 AM CERTIFIED PEER SPECIALIST Gender Identity Not on file Sexual Orientation Choose not to disclose 2020 8:52 AM CDT documented as of this encounter Progress Notes * Atul Hagan MD - 09/29/2010 3:38 PM CDT Progress Note Created by: Atul Hagan M.D. DATE: 09/21/2010 BISHOP JUANCARLOS DATE OF : 1940 AGE: [age] years old Referring Physician: JAYLIN GOOD Referring Clinic: [facility] INTERNAL MEDICINE CURRENT DIAGNOSES 1. - Shortness [...] had the opportunity to see Mr. Juancarlos Dexter in cardiology clinic today for reevaluation of coronary artery disease and discussion of symptoms of recent onset of shortness of breath. As you may recall, Mr. Dexter is a 70-year-old gentleman who had bypass surgery in 1994 at [facility] and more recently had angioplasty with drug-coated [...] and otherlabs from February [address] Good's office all looked pretty good. I do [...] - used to smoke but quit and 2007; Diet - regular diet withoutmodifications and caffeine [...] 0 Directions Changed-No Abbrvs IMPRESSIONS/PLAN Mr. Juancarlos Dexter is a 70-year-old gentleman with coronary artery [...] Treadmill Nuclear Study 3 days, Patient OFF Meds MD able to convert to pharm stress if pt unable to exercise 2. CBC w/out Diff 3 days 3. TSH 3 days 4. Pulmonary Function Test Schedule at [facility] 5. F/U with [facility] MSN, TEST DESKMAN 2-4 weeks 6. Holter Monitor 1 week, 24-Hour 7. F/U with Atul Hagan MD 1 year Atul Hagan M.D. documented in this encounter Plan of Treatment Upcoming Encounters Date Type Department Care Team (Late st Contact Info) Description 03/12/2025 2:15 PM CERTIFIED PEER SPECIALIST Office Visit [facility] [address] [facility] [address] [place] [address] Charlene Graff APRN TEST DESKMAN [address], [id number]-[id number] [place] [address] Juancarlos James MD [address] [place] [address] documented as of this encounter Visit Diagnoses Not on filedocumented in this encounter Care Teams Project Internship Relationship Specialty Start Date End Date Jaylin Good MD PCP - General Internal Medicine 11/19/13 10/13/15 Confirmed, No Pcp PCP - General 10/14/15 10/25/15 Sarwat Grossman MD [address] [place] [address] PCP - General Internal Medicine-Hematology & Oncology 10/26/15 12/06/21 Sarwat Grossman MD [address] [place] [address] PCP - Assigned PCP 10/14/17 04/30/18 Carlos Godinez MD [address] [place] [address] PCP - General Family Medicine 12/07/21 Sarwat Grossman MD [address] [place] [address] Assigned PCP 10/14/17 10/11/19 Sushma Mejia DO [address]00 [place] [address] Assigned PCP 10/12/19 10/18/19 Sarwat Grossman MD [address] [place] [address] Assigned PCP 10/19/19 06/26/20 Sushma Mejia DO [address] [place] [address] Assigned PCP 06/27/20 02/03/22 Atul Hagan MD [address] [place] [address] Assigned Heart and Vascular Provider 11/14/20 03/21/23 Emma Burnham APRN TEST DESKMAN [address] [place] [address] Assigned PCP 02/04/22 04/21/22 Sarwat Grossman MD [address] [place] [address] Assigned PCP 04/22/22 11/03/22 Emma Burnham APRN TEST DESKMAN [address] [place] [place] [address] Assigned PCP 11/04/22 09/17/23 Ioana Higgins PA-C [address] [place] [address] Assigned Heart and Vascular Provider 03/22/23 02/17/24 [facility] [address] [place] [address] Assigned PCP 09/18/23 11/18/23 Charlene Graff APRN TEST DESKMAN [address], Y338-L628 [place] [address] Nurse Practitioner Cardiology 10/22/23 Atul Hagan MD [address] [place] [address] Assigned Heart and Vascular Provider 02/18/24 06/17/24 Charlene Graff APRN TEST DESKMAN [address] M347-S883 [place] [address] Assigned Heart and Vascular Provider 06/18/24 documented as of this encounter
--- OUTSIDE RECORDS SUMMARY | 2024-12-31 09:23 | XMS_ITS | Encounter Summary ---
Author Organization [facility] Address [address] [place] [address] Care Team Providers Care Car Supplier Name Role Phone Atul Hagan MD Unavailable Carlos Godinez MD Primary Care Provider Sarwat Grossman MD Unavailable [phone] Emma Burnham APRN TELE TECH Unavailable Ioana Higgins PA-C Unavailable [facility] Unavailable Charlene Graff APRN TELE TECH Unavailable Atul Hagan MD Unavailable [phone] Charlene Graff APRN TELE TECH Unavailable [phone] Encounter Details Date Type Department Care Team (Late st Contact Info) Description 04/27/2022 External Order Results [facility] [address] [place] [address] Outside, Provider Social History Tobacco Use Types [...] Family Three times a week 10/09/2018 [facility] More than 4 times per year [...] Answer Date Recorded PHQ-2 Score 0 01/06/2020 [facility] [place] of Occupat ional Health - Occupational Stress [...] on file Legal Sex Male 3:10 AM FOREIGN FOOD SPECIALTY COOK Gender Identity Not on file Sexual Orientation Choose not to disclose 2020 8:52 AM CDT Occupation Industry Job Start Date Job End Date Not on file Not on file Not on file Not on file documented as of this encounter Plan of Treatment Upcoming Encounters Date Type Department Care Team (Late st Contact Info) Description 03/12/2025 2:15 PM FOREIGN FOOD SPECIALTY COOK Office Visit [facility] [address] [place] [address] Charlene Graff APRN CNP [address], Y555-A000 [place] [address] Juancarlos James MD [address] [place], [place] [address] documented as of this encounter Procedures Procedure Name Priority Date/Time Associated Diagnosis Comments RBC FOLATE Routine 04/27/2022 11:07 AM FOREIGN FOOD SPECIALTY COOK CBC WITH PLATELETS & DIFFERENTIAL Routine 04/27/2022 11:07 AM FOREIGN FOOD SPECIALTY COOK IRON Routine 04/27/2022 11:07 AM FOREIGN FOOD SPECIALTY COOK FERRITIN Routine 04/27/2022 11:07 AM FOREIGN FOOD SPECIALTY COOK documented in this encounter Results * RBC Folate (04/27/2022 11:07 AM FOREIGN FOOD SPECIALTY COOK) Folate RBC 592 >=366 NG/Ml NON-INT ERFACED (ONBASE SCANS) Blood 04/27/2022 11:0 7 AM FOREIGN FOOD SPECIALTY COOK Narrative CASANDRA PFT - 05/24/2023 2:27 PM CDT Verified by Uriel Livingston on 05/24/2023. us Provider Outside LAB - BLOOD ORDERABLES Edited R esult - Final CASANDRA PFT NON-INTERFACED (ONBASE SCANS) * (ABNORMAL) CBC with Platelets & Differential (04/27/2022 11:07 AM FOREIGN FOOD SPECIALTY COOK) Pathologist [facility] WBC Count (External) 7.37 4.5 - 11.0 [...] BLOOD SPECIMEN / Unknown 04/27/2022 11:07 AM FOREIGN FOOD SPECIALTY COOK Narrative BREEZE PFT - 05/24/2023 2:27 PM CDT Verified by Uriel Livingston on 05/24/2023. Provider Outside LAB - BLOOD ORDERABLES Edited [email or web address] BREEZE PFT NON-INTERFACED (ONBASE SCANS) * Iron (04/27/2022 11:07 AM FOREIGN FOOD SPECIALTY COOK) Iron (External) 87 49 - 181 ug/dl NON-INTERFACED (ONBASE SCANS) Blood BLOOD SPECIMEN / Unknown 04/27/2022 11:07 AM FOREIGN FOOD SPECIALTY COOK Narrative BREEZE PFT - 05/24/2023 2:27 PM CDT Verified by Uriel Livingston on 05/24/2023. Provider Outside LAB - BLOOD ORDERABLES Edited [email or web address] BREEZE PFT NON-INTERFACED (ONBASE SCANS) * Ferritin (04/27/2022 11:07 AM FOREIGN FOOD SPECIALTY COOK) Ferritin (External) 68.0 17.9 - 464.0 ng/ml NON-INTERFACED (ONBASE SCANS) Blood BLOOD SPECIMEN / Unknown 04/27/2022 11:07 AM FOREIGN FOOD SPECIALTY COOK Narrative CASANDRA PFT - 05/24/2023 2:27 PM CDT Verified by Uriel Livingston on 05/24/2023. us Provider Outside LAB - BLOOD ORDERABLES Edited R esult - Final CASANDRA PFT NON-INTERFACED (ONBASE SCANS) documented in this encounter Visit Diagnoses Not on filedocumented in this encounter Care Teams Car Supplier Relationship Specialty Start Date End Date Carlos Godinez MD [address] [place] [id number] PCP - General Family Medicine 12/07/21 Atul Hagan MD [address] [place] [address] Assigned Heart and Vascular Provider 11/14/20 03/21/23 Sarwat Grossman MD [address] [place] [address] Assigned PCP 04/22/22 11/03/22 Emma Burnham APRN CNP [address] [place] [address] Assigned PCP 11/04/22 09/17/23 Ioana Higgins PA-C [address] [address] Assigned Heart and Vascular Provider 03/22/23 02/17/24 [facility] [place] [address] [address] [id number] Assigned PCP 09/18/23 11/18/23 Charlene Graff APRN TELE TECH [address], E465-D432 [place] [address] Nurse Practitioner Cardiology 10/22/23 Atul Hagan MD [address] [place] [address] Assigned Heart and Vascular Provider 02/18/24 06/17/24 Charlene Graff APRN TELE TECH [address], [id number]-H578 [place] [id number] Assigned Heart and Vascular Provider 06/18/24 documented as of this encounter
--- OUTSIDE RECORDS SUMMARY | 2024-12-31 09:23 | XMS_ITS | Encounter Summary ---
Author Organization [facility] Address [address] [place] [address] Care Team Providers Care Credit Compliance Officer Name Role Phone Sarwat Grossman MD Primary Care Provider [phone] Sarwat Grossman MD Unavailable [phone] Sarwat Grossman MD Unavailable [phone] Sushma Mejia DO Unavailable Sarwat Grossman MD Unavailable [phone] uSshma Mejia DO Unavailable Atul Hagan MD Unavailable Carlos Godinez MD Primary Care Provider [phone] Emma Burnham APRN BEE RANCHER Unavailable Sarwat Grossman MD Unavailable Emma Burnham APRN BEE RANCHER Unavailable Ioana Higgins PA-C Unavailable [phone] [facility] [place] [facility] Unavailable Charlene Graff APRN, CNP Unavailable Atul Hagan MD Unavailable [phone] Charlene Graff APRN, CNP Unavailable [phone] Encounter Details Date Type Department Care Team (Late st Contact Info) Description 10/08/2016 MyC Medical Advice [facility] [address] [place] [address] Sarwat Grossman MD [address] [place] [address] Social History Tobacco Use Types Packs/Day Years Used Date Smoking Tobacco: Former Cigarettes Q uit: 03/29/2005 Smokeless Tobacco: Never Alcohol Use Standard Drinks/Week Comments Yes 0 (1 standard drink = 0.6 oz pur e alcohol) rarely Sex and Gender Information Value Date Recorded Sex Assigned at Not on file Legal Sex Male 3:10 AM CERTIFIED CORPORATE TRAVEL EXECUTIVE Gender Identity Not on file Sexual Orientation Choose not to disclose 2020 8:52 AM CDT Occupation Industry Job Start Date Job End Date Not on file Not on file Not on file Not on file documented as of this encounter Plan of Treatment Upcoming Encounters Date Type Department Care Team (Late st Contact Info) Description 03/12/2025 2:15 PM CERTIFIED CORPORATE TRAVEL EXECUTIVE Office Visit [facility] [address] [facility] [address] [place] [address] Charlene Graff APRN BEE RANCHER [address], H238-Z354 [place] [address] Juancarlos James MD [address] [place] [address] documented as of this encounter Visit Diagnoses Not on filedocumented in this encounter Care Teams Credit Compliance Officer Relationship Specialty Start Date End Date Sarwat Grossman MD [address] [place] [address] PCP - General Internal Medicine-Hematology & Oncology 10/26/15 12/06/21 Sarwat Grossman MD [address] [place] [address] PCP - Assigned PCP 10/14/17 04/30/18 Carlos Godinez MD [address] [place] [address] PCP - General Family Medicine 12/07/21 Sarwat Grossman MD [address] [place] [address] Assigned PCP 10/14/17 10/11/19 Sushma Mejia DO [address] [place] [address] Assigned PCP 10/12/19 10/18/19 Sarwat Grossman MD [address] [employer] [address] [place] [address] Assigned PCP 10/19/19 06/26/20 Sushma Mejia DO [address] [place] [address] Assigned PCP 06/27/20 02/03/22 Atul Hagan MD [address] [place] [address] Assigned Heart and Vascular Provider 11/14/20 03/21/23 Emma Burnham APRN BEE RANCHER [address] [place] [address] Assigned PCP 02/04/22 04/21/22 Sarwat Grossman MD [address] [place] [address] Assigned PCP 04/22/22 11/03/22 Emma Burnham APRN BEE RANCHER [address] [address] Assigned PCP 11/04/22 09/17/23 Ioana Higgins PA-C [address] [place] [address] Assigned Heart and Vascular Provider 03/22/23 02/17/24 [place] [address] [place] [address] Assigned PCP 09/18/23 11/18/23 Charlene Graff APRN BEE RANCHER [address], I158-Q244 [place] [address] Nurse Practitioner Cardiology 10/22/23 Atul Hagan MD [address] [place] [address] Assigned Heart and Vascular Provider 02/18/24 06/17/24 Charlene Graff APRN BEE RANCHER [address], E131-T167 [place] [address] Assigned Heart and Vascular Provider 06/18/24 documented as of this encounter
--- OUTSIDE RECORDS SUMMARY | 2024-12-31 09:23 | XMS_ITS | Encounter Summary ---
Author Organization [facility] Address [address] [place] [address] Care Team Providers Care Mulcher Operator Name Role Phone Jaylin Good MD Primary Care Provider [phone] Confirmed, No Pcp Primary Care Provider Unavaila ble Sarwat Grossman MD Primary Care Provider [phone] Sarwat Grossman MD Unavailable [phone] Sarwat Grossman MD Unavailable [phone] Sushma Mejia DO Unavailable [phone] Sarwat Grossman MD Unavailable [phone] Sushma Mejia DO Unavailable [phone] Atul Hagan MD Unavailable [phone] Carlos Godinez MD Primary Care Provider [phone] Emma Burnham APRN PRODUCTION TEAM MEMBER Unavailable [phone] Sarwat Grossman MD Unavailable [phone] Emma Burnham APRN PRODUCTION TEAM MEMBER Unavailable [phone] Ioana Higgins PA-C Unavailable [phone] [facility] Unavailable Charlene Graff APRN PRODUCTION TEAM MEMBER Unavailable [phone] Atul Hagan MD Unavailable [phone] Charlene Graff INDERJIT PRODUCTION TEAM MEMBER Unavailable [phone] Encounter Details Date Type Department Care Team (Late st Contact Info) Description 10/17/2010 Office Visit-[facility] [place] [address] [facility] [address] [place] [address] Mercy Bernard APRN PRODUCTION TEAM MEMBER [address] [facility] [address] [place] [address] Social History Tobacco Use Types Packs/Day Years Used Date Smoking Tobacco: Never Assessed Sex and Gender Information Value Date Recorded Sex Assigned at Not on file Legal Sex Male 3:10 AM AUTOCLAVE OPERATOR Gender Identity Not on file Sexual Orientation Choose not to disclose 2020 8:52 AM CDT documented as of this encounter Progress Notes * Mercy Bernard NP - 10/20/2010 3:54 PM CDT Progress Note Created by: [facility] [address]16 DATE: 10/17/2010 JUANCARLOS ALAS DATE OF : 1940 AGE: [age] years old Referring Physician: JAYLIN GOOD Referring Clinic: [facility] INTERNAL [facility]ICINE CURRENT DIAGNOSES 1. - [...] delightful 70-year-old male who presents to the [facility] today for a follow [...] have asked him to talk with Dr. Good about further assessment or perhaps Dr. Orr as he has seen her before. I would also like to have his CPAP device reanalyzed. At this time, we would like for him to undergo an echocardiogram [...] st Contact Info) Description 03/12/2025 2:15 PM AUTOCLAVE OPERATOR Office Visit [facility] [address] [facility] [address] [place] [phone] Charlene Graff APRN PRODUCTION TEAM MEMBER [address], G290-V474 [place] [address] Juancarlos James MD [address] [place], [place] [address] documented as of this encounter Visit Diagnoses Not on filedocumented in this encounter Care Teams Mulcher Operator Relationship Specialty Start Date End Date Jaylin Good MD PCP - General Internal Medicine 11/19/13 10/13/15 Confirmed, No Pcp PCP - General 10/14/15 10/25/15 Sarwat Grossman MD [address] [facility] [address] [place] [address] PCP - General Internal Medicine-Hematology & Oncology 10/26/15 12/06/21 Sarwat Grossman MD [address] [facility] 160 [place] [address] PCP - Assigned PCP 10/14/17 04/30/18 Carlos Godinez MD [address] [place] [address] PCP - General Family Medicine 12/07/21 Sarwat Grossman MD [address] [place] [address] Assigned PCP 10/14/17 10/11/19 Sushma Mejia DO [address]00 [place] [address] Assigned PCP 10/12/19 10/18/19 Sarwat Grossman MD [address] [place] [address] Assigned PCP 10/19/19 06/26/20 Sushma Mejia DO [address]00 [place] [address] Assigned PCP 06/27/20 02/03/22 Atul Hagan MD [address] [facility] [address] [place] [address] Assigned Heart and Vascular Provider 11/14/20 03/21/23 Emma Burnham APRN PRODUCTION TEAM MEMBER [address] [place] [address] Assigned PCP 02/04/22 04/21/22 Sarwat Grossman MD [address] [place] [address] Assigned PCP 04/22/22 11/03/22 Emma Burnham APRN PRODUCTION TEAM MEMBER [address] [place] [address] Assigned PCP 11/04/22 09/17/23 Ioana Higgins PA-C [address] [place] [address] Assigned Heart and Vascular Provider 03/22/23 02/17/24 [facility] [address] [place] [address] Assigned PCP 09/18/23 11/18/23 Charlene Graff APRN PRODUCTION TEAM MEMBER [address], O953-M967 [place] [address] Nurse Practitioner Cardiology 10/22/23 Atul Hagan MD [address] [place] [address] Assigned Heart and Vascular Provider 02/18/24 06/17/24 Charlene Graff APRN PRODUCTION TEAM MEMBER [address], W430-J145 [place] [address] Assigned Heart and Vascular Provider 06/18/24 documented as of this encounter
--- OUTSIDE RECORDS SUMMARY | 2024-12-31 09:23 | XMS_ITS | Encounter Summary ---
Author Organization [facility] Address [address] [place] [address] Care Team Providers Care Cancer Genetics Assistant Name Role Phone Sarwat Grossman MD Primary Care Provider [phone] Sarwat Grossman MD Unavailable [phone] Sarwat Grossman MD Unavailable [phone] Sushma Mejia DO Unavailable Sarwat Grossman MD Unavailable [phone] Sushma Mejia DO Unavailable Atul Hagan MD Unavailable Carlos Godinez MD Primary Care Provider [phone] Emma Burnham APRN HIGH SCHOOL MATH TEACHER Unavailable Sarwat Grossman MD Unavailable [phone] Emma Burnham APRN HIGH SCHOOL MATH TEACHER Unavailable Ioana Higgins PA-C Unavailable [phone] [facility] [place] [facility] Unavailable Charlene Graff APRN, CNP Unavailable Atul Hagan MD Unavailable [phone] Charlene Graff APRN, CNP Unavailable [phone] Encounter Details Date Type Department Care Team (Late st Contact Info) Description 05/23/2017 MyC Medical Advice [facility] [address] [place] [address] Susana Lopez RN Social History Tobacco Use Types Packs/Day Years Used Date Smoking Tobacco: Former Cigarettes Q uit: 03/29/2005 Smokeless Tobacco: Never Alcohol Use Standard Drinks/Week Comments Yes 0 (1 standard drink = 0.6 oz pur e alcohol) rarely Sex and Gender Information Value Date Recorded Sex Assigned at Not on file Legal Sex Male 3:10 AM ORDER TAKER Gender Identity Not on file Sexual Orientation Choose not to disclose 2020 8:52 AM CDT Occupation Industry Job Start Date Job End Date Not on file Not on file Not on file Not on file documented as of this encounter Plan of Treatment Upcoming Encounters Date Type Department Care Team (Late st Contact Info) Description 03/12/2025 2:15 PM ORDER TAKER Office Visit [facility] [address] [facility] [address] [place] [address] Charlene Graff APRN HIGH SCHOOL MATH TEACHER [address], I680-K490 [place] [address] Juancarlos James MD [address] [place] [address] documented as of this encounter Visit Diagnoses Not on filedocumented in this encounter Care Teams Cancer Genetics Assistant Relationship Specialty Start Date End Date Sarwat Grossman MD [address] [place] [address] PCP - General Internal Medicine-Hematology & Oncology 10/26/15 12/06/21 Sarwat Grossman MD [address] [place] [address] PCP - Assigned PCP 10/14/17 04/30/18 Carlos Godinez MD [address] [facility] [address] [place] [address] PCP - General Family Medicine 12/07/21 Sarwat Grossman MD [address] [employer] [address] [place] [address] Assigned PCP 10/14/17 10/11/19 Sushma Mejia DO 1700 [place] [address] Assigned PCP 10/12/19 10/18/19 Sarwat Grossman MD [address] [address] Assigned PCP 10/19/19 06/26/20 Sushma Mejia DO 1700 [place] [address] Assigned PCP 06/27/20 02/03/22 Atul Hagan MD [address] [facility] [address] [place] [address] Assigned Heart and Vascular Provider 11/14/20 03/21/23 Emma Burnham APRN CNP [address] [place] [place], [place] [address] Assigned PCP 02/04/22 04/21/22 Sarwat Grossman MD [address] [employer] [address] [place] [address] Assigned PCP 04/22/22 11/03/22 Emma Burnham APRN HIGH SCHOOL MATH TEACHER [address] [address] Assigned PCP 11/04/22 09/17/23 Ioana Higgins PA-C [address] [place] [address] Assigned Heart and Vascular Provider 03/22/23 02/17/24 [place] [address] [place] [address] Assigned PCP 09/18/23 11/18/23 Charlene Graff APRN HIGH SCHOOL MATH TEACHER [address], K657-V210 [place] [address] Nurse Practitioner Cardiology 10/22/23 Atul Hagan MD [address] [place] [address] Assigned Heart and Vascular Provider 02/18/24 06/17/24 Charlene Graff APRN HIGH SCHOOL MATH TEACHER [address], J064-R485 [place] [address] Assigned Heart and Vascular Provider 06/18/24 documented as of this encounter
--- OUTSIDE RECORDS SUMMARY | 2024-12-31 09:23 | XMS_ITS | Encounter Summary ---
Author Organization [facility] Address [address] [place] [address] Care Team Providers Care Biomedical Photographer Name Role Phone Carlos Godinez MD Primary Care Provider [phone] Emma Burnham APRN LITIGATION ASSISTANT Unavailable [phone] Ioana Higgins PA-C Unavailable [facility] Unavailable Charlene Graff APRN LITIGATION ASSISTANT Unavailable Atul Hagan MD Unavailable Charlene Graff APRN LITIGATION ASSISTANT Unavailable Encounter Details Date Type Department Care Team (Late st Contact Info) Description 05/22/2023 External Order Results [facility] [address] [place] [address] Outside, Provider Paroxysmal atrial fibrillation (H) Social [...] Family Three times a week 10/09/2018 Attends [facility] More than 4 times per year [...] Answer Date Recorded PHQ-2 Score 0 07/27/2022 [facility] - Occupational Stress Questionnaire Answer Date [...] on file Legal Sex Male 3:10 AM ANALYTICS LEADER Gender Identity Not on file Sexual Orientation Choose not to disclose 2020 8:52 AM CDT Occupation Industry Job Start Date Job End Date Not on file Not on file Not on file Not on file documented as of this encounter Plan of Treatment Upcoming Encounters Date Type Department Care Team (Late st Contact Info) Description 03/12/2025 2:15 PM ANALYTICS LEADER Office Visit [facility] [address] [place] [address] [address] [place] [address] Charlene Graff APRN LITIGATION ASSISTANT [address], O086-[id number] [place] [address] Juancarlos James MD [address] [place], [place] [address] documented as of this encounter Procedures Procedure Name Priority Date/Time Associated Diagnosis Comments URIC ACID Routine 05/22/2023 8:02 AM CDT TSH Routine 05/22/2023 8:02 AM CDT PSA MONITORING Routine 05/22/2023 8:02 AM CDT LIPID PROFILE [...] / Unknown 05/22/2023 8:02 AM CDT Cally DÍAZT - 06/01/2023 3:48 PM CDT Verified by Oksana Robert on 06/01/2023. us Provider Outside LAB - BLOOD ORDERABLES Edited R esult - Final JUANARigoberto PFLynn NON-INTERFACED (ONBASE SCANS) * Uric acid (05/22/2023 8:02 AM CDT) Uric Acid (External) 3.4 2.2 - 8.4 mg/dL NON-INTERFACED (ONBASE SCANS) Blood BLOOD SPECIMEN / Unknown 05/22/2023 8:02 AM CDT Narrative BREEZE PFT - 06/01/2023 3:48 PM CDT Verified by Oksana Robert on 06/01/2023. Provider Outside LAB - BLOOD ORDERABLES Edited [facility] Performing Organization Address [facility] [[email or web address]] Co de Phone Number BREEZE PFT NON-INTERFACED (ONBASE SCANS) * PSA tumor marker (05/22/2023 8:02 AM CDT) Pathologist [facility] PSA (External) 1.74 0.10 - 4.00 ng/mL NON-INTERFACED (ONBASE SCANS) Blood BLOOD SPECIMEN / Unknown 05/22/2023 8:02 AM CDT Narrative BREEZE PFT - 06/01/2023 3:48 PM CDT Verified by Oksana Robert on 06/01/2023. Provider Outside LAB - BLOOD ORDERABLES Edited [facility]Sum[facility] Performing Organization Address [facility] de Phone Number BREEZE PFT NON-INTERFACED [...] on 06/01/2023. Provider Outside LAB - BLOOD ORDERABLES Edited [facility] Performing Organization Address [facility] [[email or web address]] Co de Phone Number BREEZE PFT NON-INTERFACED (ONBASE SCANS) * (ABNORMAL) TSH (05/22/2023 8:02 AM CDT) TSH (External) 0.202(L) 0.270 - 4.20 uIU/mL NON-INTERFACE D (ONBASE SCANS) Blood BLOOD SPECIMEN / Unknown 05/22/2023 8:02 AM CDT Narrative BREEZE PFT - 06/01/2023 3:48 PM CDT Verified by Oksana Robert on 06/01/2023. us Provider Outside LAB - BLOOD ORDERABLES Edited R esult - Final BREEZE PFT NON-INTERFACED (ONBASE SCANS) * (ABNORMAL) CBC [...] CDT Verified by Oksana Robert on 06/01/2023. us Atul Hagan MD LAB - BLOOD ORDERABLES Edited Result - Final CHARLIEEZE PFT NON-INTERFACED (ONBASE SCANS) * Basic metabolic [...] 06/01/2023. Atul Hagan MD LAB - BLOOD ORDERABLES Edited Result - Final CASANDRA PFT NON-INTERFACED (ONBASE SCANS) documented in this encounter Visit Diagnoses Diagnosis Paroxysmal atrial fibrillation (H) Atrial fibrillation documented in this encounter Care Teams Biomedical Photographer Relationship Specialty Start Date End Date Carlos Godinez MD PCP - General Family Medicine 12/07/21 Emma Burnham APRN LITIGATION ASSISTANT [address] [place] [address] Assigned PCP 11/04/22 09/17/23 Ioana Higgins PA-C [address] [address] Assigned Heart and Vascular Provider 03/22/23 02/17/24 [place] [address] [place] [id number] Assigned PCP 09/18/23 11/18/23 Charlene Graff APRN LITIGATION ASSISTANT [address], M889-Y193 [place] [address] Nurse Practitioner Cardiology 10/22/23 Atul Hagan MD [address] [place] [address] Assigned Heart and Vascular Provider 02/18/24 06/17/24 Charlene Graff APRN LITIGATION ASSISTANT [address], J971-S330 [place] [address] Assigned Heart and Vascular Provider 06/18/24 documented as of this encounter
--- OUTSIDE RECORDS SUMMARY | 2024-12-31 09:23 | XMS_ITS | Encounter Summary ---
Author Organization [facility] Address [address] [place] [address] Care Team Providers Care Software Quality Assurance Engineer Name Role Phone Jaylin Good MD Primary Care Provider Confirmed, No Pcp Primary Care Provider Unavaila ble Sarwat Grossman MD Primary Care Provider [phone] Sarwat Grossman MD Unavailable [phone] Sarwat Grossman MD Unavailable [phone] Sushma Mejia DO Unavailable [phone] Sarwat Grossman MD Unavailable [phone] Sushma Mejia DO Unavailable [phone] Atul Hagan MD Unavailable [phone] Carlos Godinez MD Primary Care Provider [phone] Emma Burnham APRN AIRPLANE REFUELER Unavailable + [phone] Sarwat Grossman MD Unavailable [phone] Emma Burnham APRN AIRPLANE REFUELER Unavailable + [phone] Ioana Higgins PA-C Unavailable [phone] [facility] Unavailable Charlene Graff APRN AIRPLANE REFUELER Unavailable [phone] Atul Hagan MD Unavailable [phone] Charlene Graff APRN AIRPLANE REFUELER Unavailable [phone] Encounter Details Date Type Department Care Team (Late st Contact Info) Description 06/10/2008 Office Visit-[facility] [address] [facility] [address] [place] [address] Atul Hagan MD [address] [facility] [address] [place] [address] Social History Tobacco Use Types Packs/Day Years Used Date Smoking Tobacco: Never Assessed Sex and Gender Information Value Date Recorded Sex Assigned at Not on file Legal Sex Male 3:10 AM SOCIAL SERVICES MANAGER Gender Identity Not on file Sexual Orientation Choose not to disclose 2020 8:52 AM CDT documented as of this encounter Progress Notes * Atul Hagan MD - 06/12/2008 3:56 PM CDT Progress Note Created by: Atul Hagan M.D. DATE: 06/10/2008 JUANCARLOS ALAS DATE OF : 1940 AGE: [age] years old Referring Physician: JAYLIN GOOD Referring Clinic: [facility] INTERNAL MEDICINE CURRENT DIAGNOSES 1. - [...] myocardial infarction and bypass surgery performed at [facility]. He subsequently had angioplasty and stenting of [...] him review his cholesterol numbers with Dr. Good. I will see him back again in one year. TODAYS ORDERS 1. Lipid Profile 1 day 2. F/U with Atul Hagan MD 1 year 3. Lipid profile/ALT 1 year Atul Hagan M.D. documented in this encounter Plan of Treatment Upcoming Encounters Date Type Department Care Team (Late st Contact Info) Description 03/12/2025 2:15 PM SOCIAL SERVICES MANAGER Office Visit [facility] [address] [place] [address] [address] [place] [phone] Charlene Graff APRN AIRPLANE REFUELER [address] H135-R436 [place] [address] Juancarlos James MD [address] [place] [address] documented as of this encounter Visit Diagnoses Not on filedocumented in this encounter Care Teams Software Quality Assurance Engineer Relationship Specialty Start Date End Date Jaylin Good MD PCP - General Internal Medicine 11/19/13 10/13/15 Confirmed, No Pcp PCP - General 10/14/15 10/25/15 Sarwat Grossman MD [address] [facility] [address] [place] [address] PCP - General Internal Medicine-Hematology & Oncology 10/26/15 12/06/21 Sarwat Grossman MD [address] [employer] [address] [place] [address] PCP - Assigned PCP 10/14/17 04/30/18 Carlos Godinez MD [address] [facility] [address] [place], [place] [address] PCP - General Family Medicine 12/07/21 Sarwat Grossman MD [address] [employer] [address] [address] Assigned PCP 10/14/17 10/11/19 Sushma Mejia DO 1700 [place] [address] Assigned PCP 10/12/19 10/18/19 Sarwat Grossman MD [address] [address] [address] Assigned PCP 10/19/19 06/26/20 Sushma Mejia DO 1700 [place] [address] Assigned PCP 06/27/20 02/03/22 Atul Hagan MD [address] [employer] [address] [place] [address] Assigned Heart and Vascular Provider 11/14/20 03/21/23 Emma Burnham APRN AIRPLANE REFUELER [address] [place] [address] Assigned PCP 02/04/22 04/21/22 Sarwat Grossman MD [address] [place] [address] Assigned PCP 04/22/22 11/03/22 Emma Burnham APRN AIRPLANE REFUELER [address] [place] [address] Assigned PCP 11/04/22 09/17/23 Ioana Higgins PA-C [address] [place] [address] Assigned Heart and Vascular Provider 03/22/23 02/17/24 [place] [address] [place] [address] Assigned PCP 09/18/23 11/18/23 Charlene Graff APRN AIRPLANE REFUELER [address], P098-T556 [place] [address] Nurse Practitioner Cardiology 10/22/23 Atul Hagan MD [address] [place] [address] Assigned Heart and Vascular Provider 02/18/24 06/17/24 Charlene Graff APRN AIRPLANE REFUELER [address], T275-Q796 [place] [address] Assigned Heart and Vascular Provider 06/18/24 documented as of this encounter
--- OUTSIDE RECORDS SUMMARY | 2024-12-31 09:23 | XMS_ITS | Encounter Summary ---
Author Organization [facility] Address [address] [place] [address] Care Team Providers Care Supervisor Logging Name Role Phone Carlos Godinez MD Primary Care Provider [phone] Charlene Graff APRN EVENT PLANNER Unavailable [phone] hCarlene Graff APRN EVENT PLANNER Unavailable [phone] Encounter Details Date Type Department Care Team (Late st Contact Info) Description 10/06/2024 [facility] Medical Advice [facility] Heart [address] [place] [address] Yasemin Boyle Social History Tobacco Use Types Packs/Day Years [...] Family Three times a week 10/09/2018 Attends Church Services More than 4 times per year [...] Answer Date Recorded PHQ-2 Score 0 06/13/2023 [facility] [place] of Occupat ional Health - Occupational Stress [...] on file Legal Sex Male 3:10 AM GROUP INSURANCE SPECIAL AGENT Gender Identity Not on file Sexual Orientation Choose not to disclose 2020 8:52 AM CDT Occupation Industry Job Start Date Job End Date Not on file Not on file Not on file Not on file documented as of this encounter Plan of Treatment Upcoming Encounters Date Type Department Care Team (Late st Contact Info) Description 03/12/2025 2:15 PM GROUP INSURANCE SPECIAL AGENT Office Visit [address] [place] [address] Charlene Graff APRN EVENT PLANNER [address], I322-X013 [place] [address] Juancarlos James MD [address] [place] [address] documented as of this encounter Visit Diagnoses Not on filedocumented in this encounter Care Teams Supervisor Logging Relationship Specialty Start Date End Date Carlos Godinez MD PCP - General Family Medicine 12/07/21 Charlene Graff APRN EVENT PLANNER [address] [id number]-N791 [place] [address] Nurse Practitioner Cardiology 10/22/23 Charlene Graff APRN EVENT PLANNER [address] L931-W052 [place] [address] Assigned Heart and Vascular Provider 06/18/24 documented as of this encounter
--- OUTSIDE RECORDS SUMMARY | 2024-12-31 09:23 | XMS_ITS | Encounter Summary ---
Author Organization [facility] [facility] Address [address] [place] [address] Care Team Providers Care Food Beverage Manager Name Role Phone Sarwat Grossman MD Primary Care Provider Sarwat Grossman MD Unavailable [phone] Sushma Mejia DO Unavailable Atul Hagan MD Unavailable Carlos Godinez MD Primary Care Provider Emma Burnham APRN MULTIPLE KNIFE EDGE TRIMMER OPERATOR Unavailable [phone] Sarwat Grossman MD Unavailable [phone] Emma Burnham APRN MULTIPLE KNIFE EDGE TRIMMER OPERATOR Unavailable Ioana Higgins PA-C Unavailable [phone] [facility] Unavailable Charlene Graff APRN MULTIPLE KNIFE EDGE TRIMMER OPERATOR Unavailable [phone] Atul Hagan MD Unavailable [phone] Charlene Graff APRN MULTIPLE KNIFE EDGE TRIMMER OPERATOR Unavailable [phone] Encounter Details Date Type Department Care Team (Late st Contact Info) Description 03/05/2020 [facility] [place] [address] [place] [address] Linda Lemus, [employer] MULTIPLE KNIFE EDGE TRIMMER OPERATOR NO INFO AVAILABLE 09/18/2022 Social History Tobacco [...] Family Three times a week 10/09/2018 Attends Orthodox Services More than 4 times per [...] Answer Date Recorded PHQ-2 Score 0 01/06/2020 [facility] of Occupat ional Health - Occupational Stress [...] on file Legal Sex Male 3:10 AM WATER SYSTEMS ENGINEER Gender Identity Not on file Sexual Orientation Choose not to disclose 2020 8:52 AM CDT Occupation Industry Job Start Date Job End Date Not on file Not on file Not on file Not on file documented as of this encounter Plan of Treatment Upcoming Encounters Date Type Department Care Team (Late st Contact Info) Description 03/12/2025 2:15 PM WATER SYSTEMS ENGINEER Office Visit [facility] Heart [address] [place] [address] Charlene Graff APRN CNP [address], M778-O687 [place] [id number] Juancarlos James MD [address] [place] [address] documented as of this encounter Visit Diagnoses Not on filedocumented in this encounter Care Teams Food Beverage Manager Relationship Specialty Start Date End Date Sarwat Grossman MD [address] [place] [address] PCP - General Internal Medicine-Hematology & Oncology 10/26/15 12/06/21 Carlos Godinez MD [address] [place] [address] PCP - General Family Medicine 12/07/21 Sarwat Grossman MD [address] [place] [address] Assigned PCP 10/19/19 06/26/20 Sushma Mejia DO 17[address] [place] [address] Assigned PCP 06/27/20 02/03/22 Atul Hagan MD [address] [place] [address] Assigned Heart and Vascular Provider 11/14/20 03/21/23 Emma Burnham APRN MULTIPLE KNIFE EDGE TRIMMER OPERATOR [address] [place] [address] Assigned PCP 02/04/22 04/21/22 Sarwat Grossman MD [address] [place] [address] Assigned PCP 04/22/22 11/03/22 Emma Burnham APRN MULTIPLE KNIFE EDGE TRIMMER OPERATOR [address] [place] [address] Assigned PCP 11/04/22 09/17/23 Ioana Higgins PA-C [address] [place] [address] Assigned Heart and Vascular Provider 03/22/23 02/17/24 [place] [address] [place] [address] Assigned PCP 09/18/23 11/18/23 Charlene Graff APRN MULTIPLE KNIFE EDGE TRIMMER OPERATOR [address], V384-J129 [place] [address] Nurse Practitioner Cardiology 10/22/23 Atul Hagan MD [address] [place] [address] Assigned Heart and Vascular Provider 02/18/24 06/17/24 Charlene Graff APRN MULTIPLE KNIFE EDGE TRIMMER OPERATOR [address], I561-S183 [place] [address] Assigned Heart and Vascular Provider 06/18/24 documented as of this encounter
--- OUTSIDE RECORDS SUMMARY | 2024-12-31 09:23 | XMS_ITS | Patient Health Record ---
Author Organization [facility] Address [address] [place] [address] [place] [address] Care Team Providers Care Rehabilitation Services Counselor Name Role Phone Chauncey Sarwat Primary Care Provider Unavailabl e Reason For Referral No Information Medications Medication SIG (Take, Route, Fr equency, Duration) Notes Start Date End Date Status montelukast ; Duration: 10/20/2015 A ctive Allopurinol ; Duration: 10/20/2015 A ctive warfarin ; Duration: 10/20/2015 Act gabriela Valsartan ; Duration: 10/20/2015 Act gabriela Terazosin ; Duration: 10/20/2015 Act gabriela atorvastatin ; Duration: 10/20/2015 Active Levothyroxine ; Duration: 10/20/2015 Active fluticasone ; Duration: 10/20/2015 A ctive Problems Problem Type SNOMED Code ICD Code Onset Dates Problem Status W/U Status Risk Notes Problem Polyp of nasal cavity (948440878) 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
--- OUTSIDE RECORDS SUMMARY | 2024-12-31 09:23 | XMS_ITS | Encounter Summary ---
Author Organization [facility] Address [address] [place] [address] Care Team Providers Care Billboard Installer Name Role Phone Rom Caballero MD Primary Care Provider Confirmed, No Pcp Primary Care Provider Unavaila ble Sarwat Grossman MD Primary Care Provider [phone] Sarwat Grossman MD Unavailable [phone] Sarwat Grossman MD Unavailable [phone] Sushma Mejia DO Unavailable [phone] Sarwat Grossman MD Unavailable [phone] Sushma Mejia DO Unavailable Atul aHgan MD Unavailable [phone] Carlos Godinez MD Primary Care Provider [phone] Emma Burnham APRN TOOTH CUTTER SPUR Unavailable [phone] Sarwat Grossman MD Unavailable [phone] Emma Burnham APRN TOOTH CUTTER SPUR Unavailable + [phone] Ioana Higgins PA-C Unavailable [phone] [facility] Unavailable Charlene Graff APRN TOOTH CUTTER SPUR Unavailable [phone] Atul Hagan MD Unavailable [phone] Charlene Graff APRN TOOTH CUTTER SPUR Unavailable [phone] Encounter Details Date Type Department Care Team (Late st Contact Info) Description 10/04/2010 Pulmonary Function [facility] Results Marissa Huff MD [address] [place] [address] Social History Tobacco Use Types Packs/Day Years Used Date Smoking Tobacco: Never Assessed Sex and Gender Information Value Date Recorded Sex Assigned at Not on file Legal Sex Male 3:10 AM FIRER LOCOMOTIVE CRANE Gender Identity Not on file Sexual Orientation Choose not to disclose 2020 8:52 AM CDT documented as of this encounter Procedure Notes * Marissa Huff MD - 10/05/2010 2:47 PM CDTAssociated Order(s): PULMONARY FUNCTION TEST PROCEDURE FINAL Please see medical chart for graphs and statistics related to this report. REFERRING PHYSICIAN: [facility] TIME STAMP ASSEMBLER: demi DIAGNOSIS: shortness of breath RACE: HEIGHT: [...] HUFF MD MT: lsd Name: JUANCARLOS ALAS MRN: [id number] Account: [id number] : 1940 Procedure Date: 10/04/2010 Document: [id number] cc: Rom Hagan MD, FACC [facility] LABORER DRYING DEPARTMENT documented in this encounter Plan of Treatment Upcoming Encounters Date Type Department Care Team (Late st Contact Info) Description 03/12/2025 2:15 PM FIRER LOCOMOTIVE CRANE Office Visit [facility] [address] [facility] [address] [place] [phone] Prerna Chralene VEGETABLE CUTTER TOOTH CUTTER SPUR [address], J495-T465 [place] [address] Juancarlos James MD [address] [place] [address] documented as of this encounter Procedures Procedure Name Priority Date/Time Associated Diagnosis Comments PFT GENERAL LAB TESTING 10/05/2010 2:47 PM CDT documented in this encounter Results * PULMONARY FUNCTION TEST PROCEDURE (10/05/2010 2:47 PM CDT) Narrative Transcriptions Marissa Huff MD - 10/05/2010 2:47 PM CDT FINAL Please see medical chart for graphs and statistics related to this report. REFERRING PHYSICIAN: [facility] TIME STAMP ASSEMBLER: demi DIAGNOSIS: shortness of breath RACE: HEIGHT: [...] MD MT: lsd Name: JUANCARLOS ALAS Account: [id number] : 1940 Procedure Date: 10/04/2010 Document: [id number] cc: Rom Hagan MD, [facility] DEPARTMENT us Marissa Huff MD PFT ORDERABLES Final Result documented in this encounter Visit Diagnoses Not on filedocumented in this encounter Care Teams Billboard Installer Relationship Specialty Start Date End Date Rom Caballero MD PCP - General Internal Medicine 11/19/13 10/13/15 Confirmed, No Pcp PCP - General 10/14/15 10/25/15 Sarwat Grossman MD [address] [place] [address] PCP - General Internal Medicine-Hematology & Oncology 10/26/15 12/06/21 Sarwat Grossman MD [address] [place] [address] PCP - Assigned PCP 10/14/17 04/30/18 Carlos Godinez MD [address] [address] PCP - General Family Medicine 12/07/21 Sarwat Grossman MD [address] [facility] [address] [place] [address] Assigned PCP 10/14/17 10/11/19 [place] [address] [place] [address] Assigned PCP 10/12/19 10/18/19 Sarwat Grossman MD [address] [facility] [address] [place] [address] Assigned PCP 10/19/19 06/26/20 Sushma Mejia DO [facility] [place] [address] Assigned PCP 06/27/20 02/03/22 Atul Hagan MD [address] [place] [address] Assigned Heart and Vascular Provider 11/14/20 03/21/23 Emma Burnham APRN TOOTH CUTTER SPUR [address] [place] [facility] [address] Assigned PCP 02/04/22 04/21/22 Sarwat Grossman MD [address] [facility] [address] [place] [address] Assigned PCP 04/22/22 11/03/22 Emma Burnham APRN TOOTH CUTTER SPUR [address] [place] [address] Assigned PCP 11/04/22 09/17/23 Ioana Higgins PA-C [address] [place] [address] Assigned Heart and Vascular Provider 03/22/23 02/17/24 [facility] [address] [place] [address] Assigned PCP 09/18/23 11/18/23 Charlene Graff APRN TOOTH CUTTER SPUR [address], T637-V000 [place] [address] Nurse Practitioner Cardiology 10/22/23 Atul Hagan MD [address] [place] [address] Assigned Heart and Vascular Provider 02/18/24 06/17/24 Charlene Graff APRN [facility] [address], W426-A804 [place] [address] Assigned Heart and Vascular Provider 06/18/24 documented as of this encounter
--- OUTSIDE RECORDS SUMMARY | 2024-12-31 09:23 | XMS_ITS | Encounter Summary ---
Author Organization [facility] Address [address] [place] [address]. [place] [address] Care Team Providers Care Termite Technician Name Role Phone Carlos Godinez MD Primary Care Provider [phone] Charlene Graff APRN LEDGER CLERK Unavailable [phone] Charlene Graff APRN LEDGER CLERK Unavailable [phone] Encounter Details Date Type Department Care Team (Late st Contact Info) Description 10/07/2024 Results Follow-Up [facility] - Heart & Vascular Service Line [address] [place] [address] Charlene Graff APRN LEDGER CLERK [address], T295-Z836 [place] [address] Social History Tobacco Use Types Packs/Day Years [...] Family Three times a week 10/09/2018 Attends [employer]ism Services More than 4 times per year [...] on file Legal Sex Male 3:10 AM HIM SPECIALISTS Gender Identity Not on file Sexual Orientation Choose not to disclose 2020 8:52 AM CDT Occupation Industry Job Start Date Job End Date Not on file Not on file Not on file Not on file documented as of this encounter Miscellaneous Notes * Telephone Encounter - Brock Maloney RN - 10/13/2024 9:55 AM CDT RN called patient to inquire about how he was feeling and patient's answered the phone and advised that patient's LE edema has improved after the Bumex, but hasn't completely resolved. Patient'swife reports patient's weight was 195lbs prior to starting the 5 days of bumex and today his wt is 187lbs. Patient's also reports that patient had some constipation and took a stool softener andhas had multiple BM's since so she is not sure how much of the weight loss is contributed to water weight vs loss of stool. Patient's did again confirm for RN that the edema bilaterally had decreased, but had not completely resolved. Patient's also reported that patient was complaining ofsome back pain and left sided chest pain during deep inhalation only (denies it at rest or with exertion). Patient's suspects this is due to patient's positioning in the chair he was sitting in for most of the day yesterday, but will continue to monitor and will update us if the chest discomfort worsens or occurs with exertion or at rest. RN will send updates to [employer] for further review. documented in this encounter Plan of Treatment Upcoming Encounters Date Type Department Care Team (Late st Contact Info) Description 03/12/2025 2:15 PM HIM SPECIALISTS Office Visit [facility] [address] [facility] [address] [place] [phone] Charlene Graff APRN LEDGER CLERK [address], K950-H074 [place] [address] Juancarlos James MD [address] [place] [address] documented as of this encounter Visit Diagnoses Not on filedocumented in this encounter Care Teams Termite Technician Relationship Specialty Start Date End Date Carlos Godinez MD PCP - General Family Medicine 12/07/21 Charlene Graff APRN LEDGER CLERK [address], D620-L491 [place] [address] Nurse Practitioner Cardiology 10/22/23 Charlene Graff APRN LEDGER CLERK [address], L545-W950 [place] [address] Assigned Heart and Vascular Provider 06/18/24 documented as of this encounter
--- OUTSIDE RECORDS SUMMARY | 2024-12-31 09:23 | XMS_ITS | Encounter Summary ---
Author Organization [place] Address [address] [place] [address] Care Team Providers Care Certified Residential Medication Aide Name Role Phone Sarwat Grossman MD Primary Care Provider Sarwat Gorssman MD Unavailable [phone] Sushma Mejia DO Unavailable Atul Hagan MD Unavailable Carlos Godinez MD Primary Care Provider Emma Burnham APRN OFFICER LIEUTENANT Unavailable [phone] Sarwat Grossman MD Unavailable [phone] Emma Burnham APRN OFFICER [employer]IEUTENANT Unavailable Ioana Higgins PA-C Unavailable [phone] [facility] Unavailable Charlene Graff APRN OFFICER LIEUTENANT Unavailable [phone] Atul Hagan MD Unavailable [phone] Charlene Graff APRN OFFICER LIEUTENANT Unavailable [phone] Encounter Details Date Type Department Care Team (Late st Contact Info) Description 03/05/2020 [facility] [place] [address] [place] [address] Linda Lemus, INDERJIT OFFICER LIEUTENANT NO INFO AVAILABLE 09/18/2022 Social History Tobacco [...] Family Three times a week 10/09/2018 Attends Zoroastrian Services More than 4 times per year [...] Answer Date Recorded PHQ-2 Score 0 01/06/2020 [facility] [place] of Occupat ional Health - Occupational Stress [...] on file Legal Sex Male 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 Heart [address] [place] [address] Charlene Graff APRN CNP [address], [id number] [place] [id number] Juancarlos James MD [address] [place] [id number] documented as of this encounter Visit Diagnoses Not on filedocumented in this encounter Care Teams Certified Residential Medication Aide Relationship Specialty Start Date End Date Sarwat Grossman MD [address] [place] [address] PCP - General Internal Medicine-Hematology & Oncology 10/26/15 12/06/21 Carlos Godinez MD [address] [place] [address] PCP - General Family Medicine 12/07/21 Sarwat Grossman MD [address] [place] [address] Assigned PCP 10/19/19 06/26/20 Sushma Mejia DO [address] [place] [address] Assigned PCP 06/27/20 02/03/22 Atul Hagan MD [address] [place] [address] Assigned Heart and Vascular Provider 11/14/20 03/21/23 Emma Burnham APRN OFFICER [employer]IE[employer]ENANT [address] [place] [address] Assigned PCP 02/04/22 04/21/22 Sarwat Grossman MD [address] [place] [address] Assigned PCP 04/22/22 11/03/22 Emma Burnham APRN OFFICER [employer]IEUTENANT [address] [address] Assigned PCP 11/04/22 09/17/23 Ioana Higgins PA-C [address] [place] [address] Assigned Heart and Vascular Provider 03/22/23 02/17/24 [place] [address] [place] [address] Assigned PCP 09/18/23 11/18/23 Charlene Garff APRN OFFICER [employer]ENANT [address], [id number] [place] [address] Nurse Practitioner Cardiology 10/22/23 Atul Hagan MD [address] [place] [address] Assigned Heart and Vascular Provider 02/18/24 06/17/24 Charlene Graff APRN OFFICER LIEUTENANT [address], [id number] [place] [address] Assigned Heart and Vascular Provider 06/18/24 documented as of this encounter
--- OUTSIDE RECORDS SUMMARY | 2024-12-31 09:24 | XMS_ITS | Clinical Summary ---
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 Place 1 tablet (0.4 mg) under the tongue every 5 minutes as needed for chest pain if still having pain after 3 doses (15 min) call 911 25 tablet 3 0 Active hydrOXYzine (ATARAX) 25 MG tabletIndications :Nausea,Anxiety Take 1 tablet (25 mg) by mouth 3 times daily as needed for anxiety or other (stomach upset) 30 tablet 11 0 Active Additional Information Patient not taking.Reported on 06/13/2024 allopurinol (ZYLOPRIM) 300 MG tabletIndications :Gout of knee, unspecified cause, unspecified chronicity, unspecified laterality TAKE 1 TABLET DAILY 90 tablet 1 Active levothyroxine (SYNTHROID/LEVOTH ROID) 175 MCG tabletIndications :Hypothyroidism due to acquired atrophy of thyroid TAKE 1 TABLET DAILY 90 tablet 1 Active azaTHIOprine (IMURAN) 50 MG tablet Take 50 mg by mouth daily Active alfuzosin ER (UROXATRAL) 10 MG 24 hr tablet Take 10 mg by mouth daily Active betamethasone dipropionate (DIPROSONE) 0.05 % external cream Apply topically 2 times daily Active apixaban ANTICOAGULANT (ELIQUIS ANTICOAGULANT) 5 MG tabletIndications :Paroxysmal atrial fibrillation (H) Take 1 tablet (5 mg) by mouth 2 times daily. 180 tablet 3 4 Active Multiple Vitamins-Minerals (PRESERVISION AREDS PO) Take by mouth. Activ e acetaminophen (TYLENOL) 500 MG tablet Take 500-1,000 mg by mouth every 6 hours as needed for mild pain. Active NEW MED Water pill as needed Active bumetanide (BUMEX) 1 MG tabletIndications :Bilateral lower extremity edema Take 1 tablet (1 mg) by mouth daily as needed (weight gain, lower leg swelling, or worsening shortness of breath). 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 Coronary artery disease invo lving mentasta coronary artery of mentasta heart without angina pectoris 09/29/2014 Overview (09/29/2014): 2005 underwent angioplasty and stenting in the [...] 10/01/2017 018 Advanced directives, counseling/discussion 10/27/2015 08/13/2023 Overview (10/27/2015): States he has one at home and will bring a copy in to the clinic. His previous doctor at [facility] has his original one (Dr. Caballero). 10/27/15 Lumbago 11/28/2013 12/17/2013 [email or web address] FOLLOWING JOINT REPLACEMENT 07/05/2005 09/15/2005 [email or web address] JOINT REPLACEMENT STATUS 07/05/2005 09/15/2005 Encounters Date Type Department Care Team Description 12/15/2024 Results Follow-Up [facility] - Heart & Vascular Service Line [address] [place] [address] Charlene Graff APRN CNP Subj: Message about your results 12/12/2024 8:30 AM CDT Lab [facility] [address] [place] [address] [address] [place] [address] Charlene Graff APRN CNP Paroxysmal atrial fibrillation (H); 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 12/12/2024 Travel 10/07/2024 8:30 AM CDT Lab [facility] [address] [facility] [address] [place] [address] Bilateral lower extremity edema; 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; Paroxysmal atrial fibrillation (H); Other heart failure (H) 10/07/2024 Results Follow-Up [facility] Heart & Vascular Service Line [address] [place] [address] Charlene Graff APRN CNP 10/07/2024 Travel 10/06/2024 MyC Medical Advice [facility] [address] [facility] [address] [place] [address] Yasemin Boyle 10/02/2024 Telephone [facility] [address] [facility] [address] [place] [address] Charlene Graff APRN LABORER RAGS Call Back (Medication) from Last 3 Months Immunizations Immunization Administration Dates Next Due COVID-19 MONOVALENT 12+ (Pfizer) 05/01/2020,03/29 [id number] Novel Flu 01/08/2009 Influenza (High Dose) Trival ent,PF (Fluzone) 12/11/2017,03/09/2017,02/09/2016 Influenza Vaccine 65+ (Fluzone HD) 10/30/2019 Pneumo [...] Family Three times a week 10/09/2018 Attends Taoism Services More than 4 times per year [...] Answer Date Recorded PHQ-2 Score 0 06/13/2023 [facility] of Occupat ional Health - Occupational [...] on file 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 Gender Identity Not on file Sexual Orientation Choose not to disclose 2020 8:52 AM CDT Occupation Industry Job Start Date Job End Date Not on file Not on file Not on file Not on file Last Filed Vital Signs Vital Sign Reading Time Taken Comments Blood Pressure 114/60 06/13/2024 8:36 AM CDT Pulse 54 06/13/2024 8:36 AM CDT Temperature 36.6 C (97.8 F) 09/30/2020 8:30 AM CDT Respiratory Rate 20 08/24/2020 9:40 AM CDT Oxygen Saturation 98% 12/25/2023 11:17 AM CDT Inhaled Oxygen Concentration - - Weight 91.6 kg (202 lb) 06/13/2024 8:36 AM CDT Height 177.2 cm (5' 9.75) 06/13/2024 8:36 AM CD T Body Mass Index 29.19 06/13/2024 8:36 AM CDT Plan of Treatment Upcoming Encounters Date Type Department Care Team (Late st Contact Info) Description 03/12/2025 2:15 PM SOFTWARE INTEGRATION DEVELOPER Office Visit [facility] Heart [facility] [address] [place] [address] [address] [place] [address] Charlene Graff APRN LABORER RAGS [address], [id number] [place] [address] Juancarlos James MD [address] [place] [id number] Health Maintenance Due Date Last Done Comments ANNUAL REVIEW OF ORDERS 1940 HF ACTION PLAN 1940 RSV VACCINE (1 - 1-dose 75+ series) 2014 FALL RISK ASSESSMENT 01/05/2021 01/06/2020, 10/30/2019, 10/30/2019, Additional history exists MEDICARE ANNUAL WELLNESS VISIT 01/24/2023 01/24/2022, 02/07/2021, 10/30/2019, Additional history exists PHQ-2 (once per calendar year) 2024 06/13/2023, 07/27/2022, 01/06/2020, Additional history exists URIC ACID 05/21/2024 05/22/2023, 09/28, 10/09/2018, Additional history exists ADVANCE CARE PLANNING 11/03/2024 11/04/2019 , 10/27/2015, 10/27/2015 COVID-19 VACCINE (9 - Pfizer risk season) 2025 12/09/2024, 12/26/2023, 02/15/2023, Additional history exists BMP 06/12/2025 12/12/2024, 09/26, 06/10/2024, Additional history exists ALT 12/12/2025 12/12/2024, 05/27, 12/21/2023, Additional history exists CBC 12/12/2025 12/12/2024, 04/27, 04/27/2022, Additional history exists LIPID 12/12/2025 12/12/2024, 05/27, 12/21/2023, Additional history exists DTAP/TDAP/TD VACCINE (2 - Td or Tdap) 07/29/2026 07/29/2016, 10/21/1997 PNEUMOCOCCAL VACCINE 50+ YEARS Completed 10/30/2019, 10/09/2018, 10/21/1997 TSH W/FREE T4 REFLEX Completed 05/22/2023, 10/27/2019, 10/09/2018, Additional history exists ZOSTER VACCINE Completed 09/19/2023, 06/29/2023 INFLUENZA VACCINE Completed 12/09/2024, , 01/05/2023, Additional history exists HPV VACCINE (No Doses Required) Completed MENINGITIS VACCINE Aged Out No longer eligible based on patient's age to complete this topic Procedures Procedure Name Priority Date/Time Associated Diagnosis Comments ALT Routine 12/12/2024 8:44 AM CDT 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 LIPID PROFILE Routine 12/12/2024 8:44 AM CDT 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 CBC WITH PLATELETS Routine 12/12/2024 8: 44 AM CDT Paroxysmal atrial fibrillation (H) BASIC METABOLIC PANEL Routine 12/12/2024 8:44 AM CDT Paroxysmal atrial fibrillation (H) BASIC METABOLIC PANEL Routine 10/07/2024 8:41 AM CDT Bilateral lower extremity edema 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 Paroxysmal atrial fibrillation (H) Other heart failure (H) NT-PROBNP Routine 10/07/2024 8:41 AM CDT Bilateral lower extremity edema 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 Paroxysmal atrial fibrillation (H) Other heart failure (H) URIC ACID Routine 05/22/2023 8:02 AM CDT TSH Routine 05/22/2023 8:02 AM CDT from Last 3 Months or Most Recently Relevant to Health Maintenance Results * (ABNORMAL) Lipid Profile (12/12/2024 8:44 AM CDT) Pathologist [facility] Cholesterol 93 <200 mg/dL 12/12/2024 11:09 AM [...] 219 mg/dL Very High: >= 220 mg/dL Charlene Graff APRN LABOR[facility]AGS LAB - BLOOD ORDERABLES Final Result [facility] [place] [facility] [address] [facility] [place] [address] [address] Lab (1st floor, no room number) [place] [address] * ALT (12/12/2024 8:44 AM CDT) ALT 39 0 - 70 U/L 12/12/2024 9:3 4 AM CDT [facility] Blood STRUCTURE OF RIGHT UPPER LIMB / Unknown Venipuncture / Unknown 12/12/2024 8:44 AM CDT 12/12/2024 8:44 AM CDT Charlene Graff APRN LABORER RAGS LAB - BLOOD ORDERABLES Final Result LABORATORY [facility] Care Lab [address] Lab (1st floor, no room number) [place] [address] * Basic metabolic panel (12/12/2024 8:44 AM CDT) Only the most recent of2 resultswithin the time period is included. [facility] Sodium 137 135 - 145 mmol/L 12/12/2024 [...] 12/12/2024 9:34 AM CDT LABORATORY Comment:eGFR calculated usin 2020 CKD-EPI equation. Calcium 9.2 8.8 - 10.4 mg/dL 12/12/2024 9:34 AM CDT LABORATORY Glucose 93 70 - 99 mg/dL 12/12/2024 9:34 AM CDT LABORATORY Blood STRUCTURE OF RIGHT UPPER LIMB / Unknown Venipuncture / Unknown 12/12/2024 8:44 AM CDT 12/12/2024 8:44 AM CDT Charlene Graff APRN LABOR[facility]AGS LAB - BLOOD ORDERABLES Final Result LABORATORY [facility] Acute Care Lab [address] Lab (1st floor, no room number) [place] [address] * (ABNORMAL) CBC with platelets (12/12/2024 8:44 [...] - 450 10e3/uL 12/12/2024 9:10 AM CDT [facility] Blood STRUCTURE OF RIGHT UPPER LIMB / Unknown Venipuncture / Unknown 12/12/2024 8:44 AM CDT 12/12/2024 8:44 AM CDT us Charlene Graff APRN LABOR[facility]AGS LAB - BLOOD ORDERABLES Final Result [facility] Care Lab [address] Lab (1st floor, no room number) [place] [address], [facility] * (ABNORMAL) NT-proBNP (10/07/2024 8:41 AM CDT) NT-proBNP 2,392(H) 0 - 852 pg/mL 10/07/2024 9:55 AM CDT [facility] Comment: Starting on 07/02/2024, [facility] laboratory began flagging abnormal values for plasma NT-proBNP results for adults using age-specific reference ranges instead of clinical cut-points/thresholds (see interpretation comment below for clinical threshold values) as part of a test standardization effort. Pediatric abnormal values were already previously flagged using age-specific reference intervals, which are not currently changing. The test methodology remains unchanged, and previous results performed with this methodology can be interpreted with the updated reference intervals. [facility]'s Pediatric (boys and girls) Reference Ranges in pg/mL * 0 up to 3 days: 0 - 04526 3 days up to 1 month: 0 - 6500 1 month up to 1 year: 0 - 1000 2 up to 6 years: 0 - 330 6 up to 18 years: 0 - 240 Male Reference Ranges in pg/mL 18-44 years: 0 - 93 45-54 years: 0 - 138 55-64 years: 0 - 177 65-74 years: 0 - 229 75 years or older: 0 - 852 Female Reference Ranges in pg/mL 8-44 years: 0 - 178 45-54 years: 0 - 192 55-64 years: 0 - 226 65-74 years: 0 - 353 75 years or older: 0 - 624 Reference ranges in adults reflect 95th percentiles for NT-pro-BNP levels in patients without congestive heart failure (CHF). Knowledge of each individual patient's NT-proBNP range may be more useful than using similar cut-points for every patient. For adult chronic CHF patients according to [place] Heart Association (NYHA) Functional Class, the mean NT-proBNP concentration is as following (5th and 95th percentile values respectively displayed in parentheses): Class I: 1016 pg/mL (33-3410) Class II: 1666 pg/mL (103-6567) Class III: 3029 pg/mL (126-33625) Class IV: 3465 pg/mL (148-68297) Clinical thresholds for acute (emergency department) settings: < 300 pg/mL effectively rules out acute decompensated heart failure (ADHF), with 99% negative predictive value. The following values may rule in potential acute decompensated heart failure (ADHF) in individuals (with a PPV of 50-60%): Under 50 years: >450 pg/mL Between 50-75 years: >900 pg/mL Over 75 years: >1800 pg/mL Among patients with dyspnea, NT-proBNP is highly sensitive for detection of acute CHF. Elevations in NT-proBNP levels may be observed in states other than left ventricular congestive failure including: acute coronary syndromes, right heart strain/failure (including pulmonary embolism and cor pulmonale), critical illness, and renal failure. Falsely low NT-proBNP in CHF patients may be observed in increased body mass index. * References: (1) Ki Hudson et al. Pediatr Cardiol 30:3-8, 2008. Blood STRUCTURE OF RIGHT UPPER LIMB / Unknown Venipuncture / Unknown 10/07/2024 8:41 AM CDT 10/07/2024 8:41 AM CDT us Charlene Graff APRN [facility] LAB - BLOOD ORDERABLES Final Result [facility] Acute Care Lab [address] Lab (1st floor, no room number) [place] [address], [facility] * Uric acid (05/22/2023 8:02 AM CDT) [...] - Final BREEZE PFT NON-INTERFACED (ONBASE SCANS) from Last 3 Months or Most Recently Relevant to Health Maintenance Insurance MEDICARE MEDICARE BCBS OOS MEDICARE SUPPLEMENT MEDICARE [facility] OOS MEDICARE SUPPLEMENT Advance Directives For more information, please contact: [phone] * Full Code (Latest Code Status on File) Date Activated Date Inactivated Comments 09/22/2017 6:56 AM 09/23/2017 2:25 PM * Full Code Date Activated Date Inactivated Comments 11/19/2013 11:45 AM 11/20/2013 4:29 PM Care Teams Supervisor Diagnostic Relationship Specialty Start Date End Date Carlos Godinez MD PCP - General Family Medicine 12/07/21 Charlene Graff APRN [facility]AGS [address], [id number] [place] [address] Nurse Practitioner Cardiology 10/22/23 Charlene Graff, INDERJIT LABORER RAGS [address], [id number] [place] [address] Assigned Heart and Vascular Provider 06/18/24
--- OUTSIDE RECORDS SUMMARY | 2024-12-31 09:24 | XMS_ITS | Encounter Summary ---
Author Organization [facility] Address [address] [place] [address] Care Team Providers Care Core Checker Name Role Phone Jaylin Caballero MD Primary Care Provider Confirmed, No Pcp Primary Care Provider Unavaila ble Sarwat Grossman MD Primary Care Provider [phone] Sarwat Grossman MD Unavailable [phone] Sarwat Grossman MD Unavailable [phone] Sushma Mejia DO Unavailable [phone] Sarwat Grossman MD Unavailable [phone] Sushma Mejia DO Unavailable [phone] Atul Hagan MD Unavailable [phone] Carlos Godinez MD Primary Care Provider [phone] Emma Burnham APRN DISTRIBUTION ENGINEERING TECHNOLOGIST Unavailable + [phone] Sarwat Grossman MD Unavailable [phone] Emma Burnham APRN DISTRIBUTION ENGINEERING TECHNOLOGIST Unavailable + [phone] Ioana Higgins PA-C Unavailable [phone] [facility] Unavailable Charlene Graff APRN DISTRIBUTION ENGINEERING TECHNOLOGIST Unavailable [phone] Atul Hagan MD Unavailable [phone] Charlene Graff APRN DISTRIBUTION ENGINEERING TECHNOLOGIST Unavailable [phone] Encounter Details Date Type Department Care Team (Late st Contact Info) Description 02/07/2013 Office Visit-[facility] [place] [address] [facility] [address] [place] [address] Atul Hagan MD [address] [facility] [address] [place] [address] Social History Tobacco Use Types Packs/Day Years Used Date Smoking Tobacco: Never Assessed Sex and Gender Information Value Date Recorded Sex Assigned at Not on file 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 DATE: 02/07/2013 BISHOPJUANCARLOS DATE OF : 1940 AGE: [age] years old Referring Physician: JAYLIN CABALLERO Referring Clinic: [facility] INTERNAL MEDICINE CURRENT DIAGNOSES 1. - Hypertension, [...] opportunity to see Mr. Juancarlos Dexter in Cardiology Clinic today for reevaluation of [...] #0 Directions Changed-No Abbrvs IMPRESSIONS/PLAN Mr. Juancarlos Dexter is a 72-year-old gentleman with hypertension which [...] Treadmill Nuclear Study 1 year, Patient OFF Med[facility] rowena able to convert to pharm stress if pt unable to exercise Atul Hagan M.D. documented in this encounter Plan of Treatment Upcoming Encounters Date Type Department Care Team (Late st Contact Info) Description 03/12/2025 2:15 PM SHIPPING INSPECTOR Office Visit [facility] [address] [place] [address] [address] [place] [address] Charlene Graff APRN CNP [address], D317-B857 [place], [place] [address] Juancarlos James MD [address] [place], [place] [address] documented as of this encounter Visit Diagnoses Not on filedocumented in this encounter Care Teams Core Checker Relationship Specialty Start Date End Date Jaylin Caballero MD PCP - General Internal Medicine 11/19/13 10/13/15 Confirmed, No Pcp PCP - General 10/14/15 10/25/15 Sarwat Grossman MD [address] [facility] 160 [place] [address] PCP - General Internal Medicine-Hematology & Oncology 10/26/15 12/06/21 Sarwat Grossman MD [address] [address] PCP - Assigned PCP 10/14/17 04/30/18 Carlos Godinez MD [address] [place] [address] PCP - General Family Medicine 12/07/21 Sarwat Grossman MD [address] [address] Assigned PCP 10/14/17 10/11/19 Sushma Mejia DO 1700 [place] [address] Assigned PCP 10/12/19 10/18/19 Sarwat Grossman MD [address] [address] Assigned PCP 10/19/19 06/26/20 Sushma Mejia DO 1700 [place] [address] Assigned PCP 06/27/20 02/03/22 Atul Hagan MD [address] [facility] [address] [place] [address] Assigned Heart and Vascular Provider 11/14/20 03/21/23 Emma Burnham APRN DISTRIBUTION ENGINEERING TECHNOLOGIST [address] [place], [place] [address] Assigned PCP 02/04/22 04/21/22 Sarwat Grossman MD [address] 160 [place] [address] Assigned PCP 04/22/22 11/03/22 Emma Burnham APRN DISTRIBUTION ENGINEERING TECHNOLOGIST [address] [place], [place] [address] Assigned PCP 11/04/22 09/17/23 Ioana Higgins PA-C [address] [place] [address] Assigned Heart and Vascular Provider 03/22/23 02/17/24 [place] [address] [place] [address] Assigned PCP 09/18/23 11/18/23 Charlene Graff APRN DISTRIBUTION ENGINEERING TECHNOLOGIST [address], [id number]-[id number] [place] [address] Nurse Practitioner Cardiology 10/22/23 Atul Hagan MD [address] [place] [address] Assigned Heart and Vascular Provider 02/18/24 06/17/24 Charlene Graff APRN DISTRIBUTION ENGINEERING TECHNOLOGIST [address], [id number]-[id number] [place] [address] Assigned Heart and Vascular Provider 06/18/24 documented as of this encounter
--- OUTSIDE RECORDS SUMMARY | 2024-12-31 09:24 | XMS_ITS | Clinical Summary ---
Author Organization [facility] Address [address] [place] [address] Care Team Providers Care Design Cell Engineer Name Role Phone Unavailable Primary Care Provider [...] Not on file Legal Sex Male 3:10 PM PST Gender Identity Not on file Sexual Orientation Not on file Plan of Treatment Not on file
--- OUTSIDE RECORDS SUMMARY | 2024-12-31 09:24 | XMS_ITS | Encounter Summary ---
Author Organization [facility] Address [address] [place] [address] Care Team Providers Care Whitewasher Name Role Phone Sarwat Grossman MD Primary Care Provider Sushma Mejia DO Unavailable Atul Hagan MD Unavailable Carlos Godinez MD Primary Care Provider Emma Burnham APRN HADOOP ARCHITECT Unavailable Sarwat Grossman MD Unavailable [phone] Emma Burnham APRN HADOOP ARCHITECT Unavailable Ioana Higgins PA-C Unavailable [phone] [facility] Unavailable Charlene Graff APRN HADOOP ARCHITECT Unavailable Atul Hagan MD Unavailable [phone] Charlene Graff APRN HADOOP ARCHITECT Unavailable [phone] Reason for Visit * Reason Comments Medication Refill Encounter Details Date Type Department Care Team (Late st Contact Info) Description 11/12/2020 Refill [facility] [address] [place] [address] Sarwat Grossman MD [address] [facility] 160 [place] [address] Medication Refill Social History Tobacco Use Types [...] Answer Date Recorded PHQ-2 Score 0 01/06/2020 [facility] [place] of Occupat ional Health - Occupational Stress [...] file Not on file Not on file COVID-19 Exposure Response Date Recorded In the last month, have you been in contact with someone who was confirmed or suspected to have Coronavirus / COVID-19? No / Unsure 11/10/2020 9:36 AM CDT documented as of this encounter Miscellaneous Notes * Telephone Encounter - Roem Ambrosio RN - 11/16/2020 10:06 AM CDT Prescription approved per [facility] Refill Protocol. documented in this encounter Plan of Treatment Upcoming Encounters Date Type Department Care Team (Late st Contact Info) Description 03/12/2025 2:15 PM CERTIFIED PEER SPECIALIST Office Visit [facility] [address] [facility] [address] [place] [phone] Charlene Graff APRN HADOOP ARCHITECT [address], E329-F946 [place] [address] Juancarlos James MD [address] [place] [id number] documented as of this encounter Visit Diagnoses Diagnosis Essential hypertension with goal blood pressure less than 140/90 Coronary artery disease involving [place] coronary artery of [place] heart without angina pectoris documented in this encounter Care Teams Whitewasher Relationship Specialty Start Date End Date Sarwat Grossman MD [address] [place] [employer], [place] [address] PCP - General Internal Medicine-Hematology & Oncology 10/26/15 12/06/21 Carlos Godinez MD [address] [place] [address]65 PCP - General Family Medicine 12/07/21 Sushma Mejia DO 1700 [place] [address] Assigned PCP 06/27/20 02/03/22 Atul Hagan MD [address] [place] [address]25[address] Assigned Heart and Vascular Provider 11/14/20 03/21/23 Emma Burnham APRN HADOOP ARCHITECT [address] [place] [place], [place] [address] Assigned PCP 02/04/22 04/21/22 Sarwat Grossman MD [address] [place] [address] Assigned PCP 04/22/22 11/03/22 Emma Burnham APRN HADOOP ARCHITECT [address] [place] [address] Assigned PCP 11/04/22 09/17/23 Ioana Higgins PA-C [address] [place] [address] Assigned Heart and Vascular Provider 03/22/23 02/17/24 [place] [address] [place] [address] Assigned PCP 09/18/23 11/18/23 Charlene Graff APRN HADOOP ARCHITECT [address], O219-X754 [place] [address] Nurse Practitioner Cardiology 10/22/23 Atul Hagan MD [address] [place] [address] Assigned Heart and Vascular Provider 02/18/24 06/17/24 Charlene Graff APRN HADOOP ARCHITECT [address], M142-L646 [place] [address] Assigned Heart and Vascular Provider 06/18/24 documented as of this encounter
--- OUTSIDE RECORDS SUMMARY | 2024-12-31 09:24 | XMS_ITS | Encounter Summary ---
Author Organization [facility] Address [address] [place] [address] Care Team Providers Care Washery Engineer Name Role Phone Sarwat Grossman MD Primary Care Provider Sushma Mejia DO Unavailable Atul Hagan MD Unavailable [phone] Carlos Godinez MD Primary Care Provider Emma Burnham APRN COURT SECURITY OFFICER Unavailable Sarwat Grossman MD Unavailable [phone] SECURITY OFFICER Unavailable Ioana Higgins PA-C Unavailable [phone] [facility] Unavailable Charlene Graff APRN COURT SECURITY OFFICER Unavailable Atul Hagan MD Unavailable [phone] SECURITY OFFICER Unavailable [phone] Reason for Visit * Reason Comments Medication Refill Encounter Details Date Type Department Care Team (Late st Contact Info) Description 10/24/2020 Refill [facility] [address] [place] [address] Sarwat Grossman MD [address] [facility] 160 [place] [address] Medication Refill Social History Tobacco Use Types [...] Family Three times a week 10/09/2018 Attends [employer] Services More than 4 times per year [...] Answer Date Recorded PHQ-2 Score 0 01/06/2020 [facility] [place] of Occupat ional Health - Occupational [...] on file Legal Sex Male 3:10 AM BUNDLE TIER AND LABELER Gender Identity Not on file Sexual Orientation [...] Miscellaneous Notes * Telephone Encounter - Claire Hosbon RN - 10/27/2020 9:38 AM CDT Routing refill request to provider for review/approval because: Labs not current: Claire Hobson RN, BSN documented in this encounter Plan of Treatment Upcoming Encounters Date Type Department Care Team (Late st Contact Info) Description 03/12/2025 2:15 PM BUNDLE TIER AND LABELER Office Visit [facility] [address] [facility] [address] [place] [address] Charlene Graff APRN COURT SECURITY OFFICER [address], X187-E493 [place] [address] Juancarlos James MD [address] [place] [address] documented as of this encounter Visit Diagnoses Diagnosis Paroxysmal atrial fibrillation (H) Atrial fibrillation documented in this encounter Care Teams Washery Engineer Relationship Specialty Start Date End Date Sarwat Grossman MD [address] [facility] 160 [place] [address] PCP - General Internal Medicine-Hematology & Oncology 10/26/15 12/06/21 Carlos Godinez MD [address] [place] [address] PCP - General Family Medicine 12/07/21 Sushma Mejia DO 1700 [place] [address] Assigned PCP 06/27/20 02/03/22 Atul Hagan MD [address] [place] [address] Assigned Heart and Vascular Provider 11/14/20 03/21/[address] SECURITY OFFICER [address] [place] [address] Assigned PCP 02/04/22 04/21/22 Sarwat Grosmsan MD [address] 160 [place] [address] Assigned PCP 04/22/22 11/03/[address] SECURITY OFFICER [address] [place], [place] [address] Assigned PCP 11/04/22 09/17/23 Ioana Higgins PA-C [address] [place] [address] Assigned Heart and Vascular Provider 03/22/23 02/17/24 [place] [address] [place] [address] Assigned PCP 09/18/23 11/18/[address] SECURITY OFFICER [address], N385-W711 [place] [address] Nurse Practitioner Cardiology 10/22/23 Atul Hagan MD [address] [place] [address] Assigned Heart and Vascular Provider 02/18/24 06/17/[address] SECURITY OFFICER [address], X322-T218 [place] [address] Assigned Heart and Vascular Provider 06/18/24 documented as of this encounter
--- OUTSIDE RECORDS SUMMARY | 2024-12-31 09:24 | XMS_ITS | Encounter Summary ---
Author Organization [facility] Address [address] [place] [address] Care Team Providers Care Dragger Name Role Phone Sarwat Grossman MD Primary Care Provider [phone] Sushma Mejia DO Unavailable Atul Hagan MD Unavailable Carlos Godinez MD Primary Care Provider Emma Burnham APRN ELECTRONIC PREPRESS SYSTEM OPERATOR Unavailable Sarwat Grossman MD Unavailable [phone] Emma Burnham APRN ELECTRONIC PREPRESS SYSTEM OPERATOR Unavailable Ioana Higgins PA-C Unavailable [phone] [facility] Unavailable Charlene Graff APRN ELECTRONIC PREPRESS SYSTEM OPERATOR Unavailable Atul Hagan MD Unavailable [phone] Charlene Graff APRN ELECTRONIC PREPRESS SYSTEM OPERATOR Unavailable [phone] Reason for Visit * Reason Comments Medication Refill Encounter Details Date Type Department Care Team (Late st Contact Info) Description 11/24/2020 Refill [facility] [address] [place] [address] Sarwat Grossman MD [address] [facility] 160 [place] [address] Medication Refill Social History Tobacco Use Types [...] Family Three times a week 10/09/2018 Attends Faith Services More than 4 times per year [...] Answer Date Recorded PHQ-2 Score 0 01/06/2020 [facility] [place] of Occupat ional Health - Occupational Stress [...] on file Legal Sex Male 3:10 AM QUARTER SEAMER Gender Identity Not on file Sexual Orientation [...] 11/25/2020 5:15 PM CDT Prescription approved per [facility] Refill Protocol. documented in this encounter Plan of Treatment Upcoming Encounters Date Type Department Care Team (Late st Contact Info) Description 03/12/2025 2:15 PM QUARTER SEAMER Office Visit [facility] [address] [facility] [address] [place] [address] Charlene Graff APRN ELECTRONIC PREPRESS SYSTEM OPERATOR [address], S681-B607 [place] [address] Juancarlos James MD [address] [place] [id number] documented as of this encounter Visit Diagnoses Diagnosis Hyperlipidemia LDL goal <100 Other and unspecified hyperlipidemia Gout of knee, unspecified cause, unspecified chronicity, unspecified laterality Hypothyroidism due to acquired atrophy of thyroid documented in this encounter Care Teams Dragger Relationship Specialty Start Date End Date Sarwat Grossman MD [address] 160 [place], [place] [address] PCP - General Internal Medicine-Hematology & Oncology 10/26/15 12/06/21 Carlos Godinez MD [address] [place] [address] PCP - General Family Medicine 12/07/21 Sushma Mejia DO 1700 [place] [address] Assigned PCP 06/27/20 02/03/22 Atul Hagan MD [address] [place] [address] Assigned Heart and Vascular Provider 11/14/20 03/21/23 Emma Burnham APRN ELECTRONIC PREPRESS SYSTEM OPERATOR [address] [address] Assigned PCP 02/04/22 04/21/22 Sarwat Grossman MD [address] [place] [address] Assigned PCP 04/22/22 11/03/22 Emma Burnham APRN ELECTRONIC PREPRESS SYSTEM OPERATOR [address] [place] [address] Assigned PCP 11/04/22 09/17/23 Ioana Higgins PA-C [address] [place] [address] Assigned Heart and Vascular Provider 03/22/23 02/17/24 [place] [address] [place] [address] Assigned PCP 09/18/23 11/18/23 Charlene Graff APRN ELECTRONIC PREPRESS SYSTEM OPERATOR [address], Y362-M619 [place] [address] Nurse Practitioner Cardiology 10/22/23 Atul Hagan MD [address] [place] [address] Assigned Heart and Vascular Provider 02/18/24 06/17/24 Charlene Graff APRN ELECTRONIC PREPRESS SYSTEM OPERATOR [address], Y222-Z266 [place] [address] Assigned Heart and Vascular Provider 06/18/24 documented as of this encounter
--- OUTSIDE RECORDS SUMMARY | 2024-12-31 09:24 | XMS_ITS | Encounter Summary ---
Author Organization [facility] Address [address] [place] [address] Care Team Providers Care Broadcast Field Supervisor Name Role Phone Jaylin Good MD Primary Care Provider [phone] Confirmed, No Pcp Primary Care Provider Unavaila ble Sarwat Grossman MD Primary Care Provider [phone] Sarwat Grossman MD Unavailable [phone] Sarwat Grossman MD Unavailable [phone] Sushma Mejia DO Unavailable [phone] Sarwat Grossman MD Unavailable Sushma Mejia DO Unavailable Atul Hagan MD Unavailable [phone] Carlos Godinez MD Primary Care Provider [phone] Emma Burnham APRN RN MIDWIFE Unavailable [phone] Sarwat Grossman MD Unavailable [phone] Emma Burnham APRN RN MIDWIFE Unavailable [phone] Ioana Higgins PA-C Unavailable [phone] [facility] Unavailable Charleen Graff APRN RN MIDWIFE Unavailable [phone] Atul Hagan MD Unavailable [phone] Charlene Graff APRN RN MIDWIFE Unavailable [phone] Encounter Details Date Type Department Care Team (Late st Contact Info) Description 06/12/2005 Office Visit-[facility] [place] [address] [facility] [address] [place] [id number] Unknown, DoctorMD Social History Tobacco Use Types Packs/Day Years Used Date Smoking Tobacco: Never Assessed Sex and Gender Information Value Date Recorded Sex Assigned at Not on file Legal Sex Male 3:10 AM SHOVEL LOGGER Gender Identity Not on file Sexual Orientation Choose not to disclose 2020 8:52 AM CDT documented as of this encounter Progress Notes * Unknown, MD Letha - 06/16/2005 9:50 AM CDT Progress Note Created by: Atul Hagan M.D. DATE: 06/12/2005 JUANCARLOS ALAS DATE OF : 1940 AGE: [age] years old Referring Physician: JAYLIN GOOD Referring Clinic: [facility] INTERNAL MEDICINE CURRENT DIAGNOSES 1. - Atrial [...] is a 65-year-old gentleman who presented to [facility] in early April with atrial fibrillation and [...] st Contact Info) Description 03/12/2025 2:15 PM SHOVEL LOGGER Office Visit [facility] [address] [facility] [address] [place] [phone] Charlene Graff APRN RN MIDWIFE [address], U196-M803 [place] [address] Juancarlos James MD [address] [place], [place] [address] documented as of this encounter Visit Diagnoses Not on filedocumented in this encounter Care Teams Broadcast Field Supervisor Relationship Specialty Start Date End Date Jaylin Good MD PCP - General Internal Medicine 11/19/13 10/13/15 Confirmed, No Pcp PCP - General 10/14/15 10/25/15 Sarwat Grossman MD [address] [facility] 160 [place] [address] PCP - General Internal Medicine-Hematology & Oncology 10/26/15 12/06/21 Sarwat Grossman MD [address] [place] [address] PCP - Assigned PCP 10/14/17 04/30/18 Carlos Godinez MD [address] [place] [address] PCP - General Family Medicine 12/07/21 Sarwat Grossamn MD [address] [place] [address] Assigned PCP 10/14/17 10/11/19 Sushma Mejia DO 1700 [place] [address] Assigned PCP 10/12/19 10/18/19 Sarwat Grossman MD [address] [place] [address] Assigned PCP 10/19/19 06/26/20 Sushma Mejia DO 1700 [place] [address] Assigned PCP 06/27/20 02/03/22 Atul Hagan MD [address] [place] [address] Assigned Heart and Vascular Provider 11/14/20 03/21/23 Emma Burnham APRN RN MIDWIFE [address] [place] [address] Assigned PCP 02/04/22 04/21/22 Sarwat Grossman MD [address] 160 [place] [address] Assigned PCP 04/22/22 11/03/22 Emma Burnham APRN RN MIDWIFE [address] [place] [address] Assigned PCP 11/04/22 09/17/23 Ioana Higgins PA-C [address] [place] [address] Assigned Heart and Vascular Provider 03/22/23 02/17/24 [place] [address] [place] [address] Assigned PCP 09/18/23 11/18/23 Charlene Graff APRN RN MIDWIFE [address], E894-Z601 [place] [address] Nurse Practitioner Cardiology 10/22/23 Atul Hagan MD [address] [place] [address] Assigned Heart and Vascular Provider 02/18/24 06/17/24 Charlene Graff APRN RN MIDWIFE [address], K082-D833 [place] [address] Assigned Heart and Vascular Provider 06/18/24 documented as of this encounter
--- OUTSIDE RECORDS SUMMARY | 2024-12-31 09:24 | XMS_ITS | Encounter Summary ---
Author Organization [place] Address [address] [place] [address] Care Team Providers Care Association Executive Name Role Phone Sawrat Grossman MD Primary Care Provider Sushma Mejia DO Unavailable Atul Hagan MD Unavailable Carlos Godinez MD Primary Care Provider Emma Burnham APRN RETORT SETTER Unavailable Sarwat Grossman MD Unavailable [phone] Emma Burnham APRN RETORT SETTER Unavailable Ioana Higgins PA-C Unavailable [phone] [facility] Unavailable Charlene Graff APRN RETORT SETTER Unavailable Atul Hagan MD Unavailable [phone] Charlene Graff APRN RETORT SETTER Unavailable [phone] Reason for Visit * Reason Comments Medication Refill Encounter Details Date Type Department Care Team (Late st Contact Info) Description [facility] [address] [place] [address] Sarwat Grossman MD [address] [facility] [address] [place] [address] Medication Refill Social History Tobacco Use Types [...] Family Three times a week 10/09/2018 Attends [employer] Services More than 4 times per year [...] Answer Date Recorded PHQ-2 Score 0 01/06/2020 [facility] [place] of Occupat ional Health - Occupational Stress [...] on file Legal Sex Male 3:10 AM HOOF TRIMMER Gender Identity Not on file Sexual Orientation [...] Sig: TAKE 1 TABLET TWICE A DAY TRIMMER documented in this encounter Plan of Treatment Upcoming Encounters Date Type Department Care Team (Late st Contact Info) Description 03/12/2025 2:15 PM HOOF TRIMMER Office Visit [facility] [address] [facility] [address] [place] [id number] Charlene Graff APRN RETORT SETTER [id number] [place] [id number] Juancarlos James MD [address] [place] [id number] documented as of this encounter Visit Diagnoses Diagnosis Paroxysmal atrial fibrillation (H) Atrial fibrillation documented in this encounter Care Teams Association Executive Relationship Specialty Start Date End Date Sarwat Grossman MD [address] [place] [address] PCP - General Internal Medicine-Hematology & Oncology 10/26/15 12/06/21 Carlos Godinez MD [address] [place] [id number] PCP - General Family Medicine 12/07/21 Sushma Mejia DO [address] [place] [address] Assigned PCP 06/27/20 02/03/22 Atul Hagan MD [address] [place] [address] Assigned Heart and Vascular Provider 11/14/20 03/21/23 Emma Burnham APRN RETORT SETTER [address] [place] [address] Assigned PCP 02/04/22 04/21/22 Sarwat Grossman MD [address] [place] [address] Assigned PCP 04/22/22 11/03/22 Emma Burnham APRN RETORT SETTER [address] [address] Assigned PCP 11/04/22 09/17/23 Ioana Higgins PA-C [address] [place] [id number] Assigned Heart and Vascular Provider 03/22/23 02/17/24 [place] [address] [place] [address] Assigned PCP 09/18/23 11/18/23 Charlene Graff APRN RETORT SETTER [address], [id number] [place] [id number] Nurse Practitioner Cardiology 10/22/23 Atul Hagan MD [address] [place] [address] Assigned Heart and Vascular Provider 02/18/24 06/17/24 Charlene Graff APRN RETORT SETTER [address], [id number] [place] [id number] Assigned Heart and Vascular Provider 06/18/24 documented as of this encounter
--- OUTSIDE RECORDS SUMMARY | 2024-12-31 09:24 | XMS_ITS | Encounter Summary ---
Author Organization [place] Address [address] [place] [address] Care Team Providers Care Well Driller Name Role Phone Atul Hagan MD Unavailable Carlos Godinez MD Primary Care Provider Emma Burnham APRN AUTO MECHANIC Unavailable [phone] Sarwat Grossman MD Unavailable [phone] Emma Burnham APRN AUTO MECHANIC Unavailable [phone] Ioana Higgins PA-C Unavailable [facility] Unavailable Charlene Graff APRN AUTO MECHANIC Unavailable Atul Hagan MD Unavailable [phone] Charlene Graff APRN AUTO MECHANIC Unavailable [phone] Reason for Visit * Reason Comments Medication Refill Encounter Details Date Type Department Care Team (Late st Contact Info) Description 03/07/2022 Refill [facility] [address] [place] [address] Sarwat Grossman MD [address] [place] [address] Medication Refill Social History Tobacco [...] Answer Date Recorded PHQ-2 Score 0 01/06/2020 [facility] [place] of Occupat ional Health - Occupational Stress [...] on file Legal Sex Male 3:10 AM FOOD PROCESSOR Gender Identity Not on file Sexual Orientation [...] provider for review/approval because: Needs provider review PROCESSOR documented in this encounter Plan of Treatment Upcoming Encounters Date Type Department Care Team (Late st Contact Info) Description 03/12/2025 2:15 PM FOOD PROCESSOR Office Visit [address] [address] Charlene Graff APRN AUTO MECHANIC [address], [address] [place], [place] [phone] Juancarlos James MD [address] [place] [id number] documented as of this encounter Visit Diagnoses Diagnosis Paroxysmal atrial fibrillation (H) Atrial fibrillation documented in this encounter Care Teams Well Driller Relationship Specialty Start Date End Date Carlos Godinez MD [address] [place] [phone] PCP - General Family Medicine 12/07/21 Atul Hagan MD [address] [place] [id number] Assigned Heart and Vascular Provider 11/14/20 03/21/23 Emma Burnham APRN AUTO MECHANIC [address] [place] [id number] Assigned PCP 02/04/22 04/21/22 Sarwat Grossman MD [address] [place] [address] Assigned PCP 04/22/22 11/03/22 Emma Burnham APRN AUTO MECHANIC [address] [place] [address] Assigned PCP 11/04/22 09/17/23 Ioana Higgins PA-C [address] [place], [place] [id number] Assigned Heart and Vascular Provider 03/22/23 02/17/24 [facility] [address] [place] [id number] Assigned PCP 09/18/23 11/18/23 Charlene Graff APRN AUTO MECHANIC [address], [address] [place] [address] Nurse Practitioner Cardiology 10/22/23 Atul Hagan MD [address] [place] [id number] Assigned Heart and Vascular Provider 02/18/24 06/17/24 Charlene Graff APRN AUTO MECHANIC [address], [id number] [place] [address] Assigned Heart and Vascular Provider 06/18/24 documented as of this encounter
[2024-12-31] MEDS: cefTRIAXone 500 MG VIAL IM (09:31)
[2024-12-31] MEDS: LIDOCAINE 1% 5 ml (pf) 5 ML VIAL 1 ML IM (09:31)
[2024-12-31 09:34] LABS: PCR FLU A Negative PCR FLU A (Negative); PCR FLU B Negative PCR FLU B (Negative); PCR RSV Negative PCR RSV (Negative); SARS PCR* Negative SARS-CoV-2 (Negative)
== END 2024-12-31 09:45 | disposition home or self-care (01) ==
PROVIDERS: Emergency Provider Family Medicine; PCP Family Medicine
DX: J02.9 Acute pharyngitis, unspecified (principal); J40 Bronchitis, not specified as acute or chronic
CPT/HCPCS: 87631; 96372; 99283; 99284; J0696; J7512